=== PATIENT | female | born 1940 | race Caucasian/White ===

== ENCOUNTER → 2017-09-30 13:42 | Outpatient (CLI) | payer OTHER, SELFPAY ==
--- NOTE | 2017-10-01 15:06 | DI.NM.S_ITS ---
DATE OF SERVICE: 09/30/2017 PROCEDURE: Exercise perfusion study. INDICATIONS: Shortness of breath and underlying atrial fibrillation. RADIOPHARMACEUTICAL: 26.4 mCi of technetium-99m Myoview IV was injected at stress, and 23.9 mCi of technetium-99m Myoview IV was injected at rest. CARDIAC STRESS: Patient underwent exercise perfusion study under the supervision of an attending staff. She walked on Torrey protocol for 3 minutes 53 seconds and achieved maximum heart rate of about 165, which was 113% of predicted heart rate. There was a normal blood pressure response. The patient developed shortness of breath during exercise. Baseline rhythm was atrial fibrillation with controlled ventricular rate. However, during exercise, there was enhanced chronotropic response. The patient also had a 4-beat run of wide QRS tachycardia, likely an aberrant conduction. RAW DATA: There was breast shadow seen. GATED STUDY: Resting LV ejection fraction 84% and stress 88%. I don't see any obvious wall motion abnormalities. No transient ischemic dilatation. TID ratio is 0.86, which is within normal limits. Resting end-diastolic volume 83 mL. Lung/heart ratio is 0.33, which is within normal limits. MYOCARDIAL PERFUSION SCAN: Stress supine and resting supine images revealed small-sized mildly decreased perfusion of distal anterior wall and anteroseptum which resolved during prone images, suggestive of breast tissue attenuation artifact. CONCLUSION: I would call this study a normal myocardial perfusion study with underlying atrial fibrillation with enhanced chronotropic response during exercise with shortness of breath. As far as perfusion scan is concerned, this is a low risk myocardial perfusion scan; however, her exertional shortness of breath likely due to increased heart rate during exertion with underlying atrial fibrillation and possibility of diastolic dysfunction. Clinical correlation is recommended. Debora Pemberton - SUPERINTENDENT OF GENERATION/amena/ doc#: [id number]/job#: [id number] dd: 10/01/2017 12:46:00 dt: 10/01/2017 14:42:00 DICTATING MD/COPIES TO: Edilson Hernandez MD COPIES MNE: MERVIN
== END ==
PROVIDERS: Family Provider Internal Medicine; PCP Internal Medicine; Visit Provider Internal Medicine
DX: R06.02 Shortness of breath (principal); I48.91 Unspecified atrial fibrillation
CPT/HCPCS: 78452; 93016; 93017; 93018; A9502

== ENCOUNTER → 2017-10-01 08:03 | Outpatient (CLI) | payer OTHER, SELFPAY ==
--- NOTE | 2017-10-01 | DI.ECHO.S_ITS ---
[facility] +---------+ : : [address] : [place] : : : : [id number] : : : : Phone: [phone]---------+ Echocardiogram Report + + :Name: ANGY SANDHU Study Date: 10/01/2017 Height: 61 in : :[facility] Weight: 200 lb : : Gender: Female BSA: 1.9 m2 : :: 1940 Age: 76 yrs BP: 156/100 mmHg: :Reason For Study: Atrial fibrillation : :Ordering Physician: Dr. Pang : :Alexi Performed By: Miya Lozada : + + Interpretation Summary Left ventricular wall thickness is mildly increased. Left ventricular systolic function is normal without focal wall motion abnormalities. The ejection fraction is estimated to be 60-65%. The right ventricle is normal in size and function. The right ventricular systolic pressure is estimated at 26 mmHg assuming a right atrial pressure of 3 mm Hg. The left atrium is moderately dilated. The right atrium is mildly dilated. There is mild to moderate mitral regurgitation. There is mild to moderate tricuspid regurgitation. There is no other significant valvular heart disease. The ascending aorta is mildly enlarged. Procedure: A two-dimensional transthoracic echocardiogram with color flow and Doppler was performed. The study quality was technically adequate. There is no prior echocardiogram noted for this patient. The patient was in atrial fibrillation with heart rates between 45-61 bpm during the exam. Left Ventricle: Left ventricular wall thickness is mildly increased. The left ventricle is normal in size. There is no ventricular septal defect visualized. Left ventricular systolic function is normal without focal wall motion abnormalities. The ejection fraction is estimated to be 60-65%. Diastolic function could not be accurately assessed due to atrial fibrillation. Right Ventricle: The right ventricle is normal in size and function. Atria: The left atrium is moderately dilated. The right atrium is mildly dilated. There is no Doppler evidence for an interatrial shunt. Mitral Valve: The mitral valve is normal in structure but abnormal in function. There is mild to moderate mitral regurgitation. Aortic Valve: The aortic valve is trileaflet. The aortic valve opens well. No aortic regurgitation is present. Tricuspid Valve: The tricuspid valve leaflets are thin and pliable. There is mild to moderate tricuspid regurgitation. The right ventricular systolic pressure is estimated at 26 mmHg assuming a right atrial pressure of 3 mm Hg. Pulmonic Valve: The pulmonic valve is normal in structure and function. There is a trace or physiologic amount of pulmonic regurgitation. There is no other significant valvular heart disease. Great Vessels: The aortic root is normal size. The ascending aorta is mildly enlarged. The aortic arch could not be visualized. The IVC is of normal diameter and collapses greater than 50% with a sniff. This suggests a low right atrial pressure of 3 mm Hg. Pericardium/ Pleura There is no pericardial effusion. MMode/2D Measurements & Calculations LVIDd: 4.9 cm LVOT diam: 1.8 cm LVIDs: 3.3 cm Ao root diam: 3.4 cm FS: 33.8 % Aortic Jxn: 3.2 cm EPSS: 0.42 cm asc Aorta Diam: 3.9 cm IVSd: 1.1 cm LVPWd: 0.88 cm LV jaffe. diameter/BSA (cm/m^2): 2.6 LV sys. diameter/BSA (cm/m^2): 1.7 LA A2 area: 23.4 cm2 RA long axis: 6.1 cm LA A4 area: 26.3 cm2 RA area: 22.6 cm2 LA length (vol): 6.1 cm RA vol: 70.9 ml LA vol: 85.9 ml RA : 37.5 ml/m2 LA vol index: 45.5 ml/m2 IVC diam: 1.9 cm RVD1 (basal): 3.1 cm RVD2 (mid): 2.3 cm TAPSE: 2.6 cm Doppler Measurements & Calculations Ao V2 max: 162.5 cm/sec LVOT Max Asaf: 67.4 cm/sec Ao V2 mean: 104.5 cm/sec LV V1 max P.8 mmHg Ao max P.6 mmHg LV V1 VTI: 15.6 cm Ao mean P.2 mmHg DINA(I,D): 1.1 cm2 Ao V2 VTI: 37.0 cm DINA(V,D): 1.1 cm2 sev ratio: 0.42 DINA indexed to BSA (cm^2/m^2): 0.60 MV E max asaf: 90.2 cm/sec TR max asaf: 238.2 cm/sec Med Peak E' Asaf: 8.7 cm/sec TR max P.8 mmHg E/E' med: 10.4 PA V2 max: 62.5 cm/sec Lat Peak E' Asaf: 6.6 cm/sec PA V2 mean: 45.2 cm/sec E/E' lat: 13.7 PA mean P.93 mmHg E/e' average: 12.0 PA Accel Time: 0.14 sec MV P1/2t: 49.3 msec MR ERO: 0.05 cm2 P1/2t max asaf: 117.4 cm/sec MR flow rate: 24.9 cm3/sec MVA(2t): 4.5 cm2 MR PISA radius: 0.30 cm Reading Physician:BLANCHE
== END ==
PROVIDERS: Family Provider Internal Medicine; PCP Internal Medicine; Visit Provider Internal Medicine
DX: I48.91 Unspecified atrial fibrillation (principal)
CPT/HCPCS: 93306

== ENCOUNTER → 2018-02-04 11:18 | Outpatient (CLI) | payer OTHER, SELFPAY ==
[2018-02-04 12:38] LABS: Add Manual Diff / Slide Review NO; Basophils Percent Auto 0.6 % (0-2); Eosinophils Percent Auto 2.3 % (2-4); Hematocrit 41.2 % (36-46); Hemoglobin 13.9 g/dL (12.0-16.0); Lymphocytes Percent Auto 37.7 % (25-40); Mean Corpuscular HGB Conc 33.8 % (30-36); Mean Corpuscular Hemoglobin 29.6 PG (26-34); Mean Corpuscular Volume 87.5 fL (80-100); Monocytes Percent Auto 9.5 % (3-14); Neutrophils Absolute Auto 4400 /uL (3000-5900); Neutrophils Percent Auto 49.9 % (50-75); Platelet Count 246 X10^3/uL (150-400); Red Blood Cell Count 4.71 X10^6/uL (4.0-5.2); Red Cell Distribution Width 15.1 % (11.6-14.8); White Blood Cell Count 8.8 X10^3/uL (4.5-11.0)
[2018-02-04 12:45] LABS: Carbon Dioxide 33 mmol/L (22-32); Chloride 99 mmol/L (98-107); HEMOLYSIS < 15 (0-50); Potassium 4.6 mmol/L (3.4-5.1); Sodium 141 mmol/L (137-145)
== END ==
PROVIDERS: PCP Internal Medicine; Visit Provider Physician Assistant Medical
DX: M25.562 Pain in left knee (principal); E87.8 Other disorders of electrolyte and fluid balance, not elsewhere classified
CPT/HCPCS: 36415; 80051; 85025

== ENCOUNTER 2018-02-23 11:04 | Inpatient (IN) | payer OTHER, SELFPAY ==
[2018-02-09 09:52] VITALS: BMI 37.6
[2018-02-23] VITALS (18 sets, daily range): BP systolic 90–148; BP diastolic 46–91; PULSE 50–68; RESP 14–18; TEMP 35.7–36.8; O2SAT 92–96; BMI 36.6
--- NOTE | 2018-02-23 09:55 | DI.RAD.S_ITS ---
PROCEDURE: XR KNEE LT 1TO2V INDICATIONS: SURGERY TECHNIQUE: 2 view(s) of the knee acquired. COMPARISON: None. FINDINGS: Bones: Patient is status post knee joint arthroplasty. Hardware components are in expected positions. Visualized bony structures are intact. Soft tissues: Overlying postoperative changes are noted. IMPRESSION: Expected postsurgical alignment after left total knee arthroplasty. Dictated by: Barry Pryor M.D. on 02/23/2018 at 14:56 Approved by: Barry Pryor M.D. on 02/23/2018 at 14:56
[2018-02-23] MEDS: PREGABALIN 75 MG CAPSULE PO (11:45)
[2018-02-23] MEDS: MELOXICAM 7.5 MG TABLET 15 MG PO (11:45)
[2018-02-23] MEDS: ACETAMINOPHEN 325 MG TABLET 975 MG PO ×2 (11:46→21:25)
[2018-02-23] MEDS: LACTATED RINGERS 1,000 ML 42 ML IV ×2 (12:00→16:42)
--- NOTE | 2018-02-23 12:04 | PM.PREOP ---
Pre-operative Note Interval Note Pre-op Check: Yes History & Physical Reviewed by Physician and Yes Exam Performed Changes: No
--- NOTE | 2018-02-23 12:07 | P.OP_ITS ---
Operative Date/Time/Diagnoses Date of procedure: 02/23/18 Time of procedure: 14:31 Pre-op diagnosis: Left knee osteoarthritis Post-op diagnosis: same Procedure & Clinicians Procedure: Left total knee arthroplasty Same procedure as scheduled: Yes Indications: The patient presents today for total knee arthroplasty after failure of conservative treatment. The nature of the procedure including the risks and benefits, alternatives, postoperative course and expected outcome were discussed and all questions answered. Consent was obtained. Operative site confirmed and marked. Surgeon: Phan Walker An Employee Sponsor Or Advocate And: Alexey Guaman Anesthesia Type: General, Spinal and Local Operative Notes Findings: Osteoarthritis. Closure Type: primary Specimen(s): none sent Implants & Drains: [employer] BCS: 3 femoral component, 2 tibial component, 9 mm BCS polyethylene tray and 29 x 9 mm round patella Applied: implant(s) Estimated Blood Loss (mL): 50 Blood products transfused: none Tourniquet time (min): 20 Procedure in detail: The patient was taken to the operative suite and placed under spinal and general anesthesia. The patient was given prophylactic antibiotics prior to surgery. The patient was also given tranexamic acid, 1 g, just prior to surgery for postoperative hemostasis. The lateral knee was prepped and the joint injected with 20 mL of 1% Lidocaine with epinephrine. The knee was then prepped and draped in usual sterile fashion. The leg was exsanguinated with an Esmarch dressing and the tourniquet raised to 250 torr. A 15 cm anterior incision was made. Next a medial trivector arthrotomy was made. The extensor mechanism was marked to ensure accurate repair. Initial exposing dissection was carried out medially and laterally. The knee was then extended and the patellar thickness was measured and a cut made removing approximately 9 mm of bone with a goal of restoring normal patellar thickness. The patella was then sized and drilled. Some excess lateral bone was excised and the patellofemoral ligament released. The tourniquet was then released. The knee was then flexed and the [employer] femoral guide was placed. The anterior pins were placed and the distal rotation holes drilled. The distal cutting guide was placed and the templated distal femoral cut was made. The templating cutting block was then placed and the anterior, posterior and chamfer cuts made. The [employer] tibial guide was placed and the alignment checked along the axis of the proximal tibial with a ezio. The proximal tibial cut was then made with an oscillating saw. All meniscus and bony debris was then removed. Flexion extension gaps were checked. No specific balancing was required other than routine exposure and removal of osteophytes. The soft tissues were then injected with a combination of 20 mL of half percent Marcaine with epinephrine and 20 mL of Exparel. The trial components were then placed. The knee went into full extension and flexion beyond 120?. There was excellent medial- lateral balance throughout motion. Patellar tracking was excellent. The trial components were removed and size is confirmed for the final implants. The knee was then exsanguinated with an Esmarch dressing and the tourniquet reapplied for cementing. The knee was cleansed with Pulsavac irrigation and dried. The final components were cemented in with high viscosity vacuum mixed bone cement with antibiotics. The knee was held in extension and the patellar clamp until the cement had adequately cured. The knee was then irrigated with dilute Betadine solution. The extensor mechanism was closed with 5 interrupted #1 Vicryl sutures in 90 degrees of flexion. The joint was then injected with a combination of 1 g of tranexamic acid and 20 mL of quarter percent Marcaine with epinephrine. The subcutaneous tissue was closed with 2-0 Vicryl. The skin was closed with manpreet and surgical adhesive. An Aquacel dressing and Wyatt wrap were then applied. Complications: none Condition: stable Disposition: PACU Plan for aftercare: [facility] protocol.
[2018-02-23] MEDS: LIDOCAINE 1% W/EPI INJ 20 ML INJ (13:05)
[2018-02-23] MEDS: CLINDAMYCIN 900 MG/50 ML PIGGYBACK 50 MG IV (13:09)
[2018-02-23] MEDS: TRANEXAMIC ACID 1,000 MG VIAL 2000 MG INJ (13:10)
--- NOTE | 2018-02-23 13:24 | SUR.OPER ---
Supine on padded OR bed. Pillow under head, arms secured on padded armboards <90 degree abduction. Safety belt across torso. Non-operative leg secured with tape over blanket over lower leg. Operative leg secured in DeMayo/Salbador positioner. Foam padded brace at thigh of operative leg.
[2018-02-23] MEDS: POVIDONE-IODINE 15 ML, SODIUM CHLORIDE 0.9% 250 ML TOP (13:35)
[2018-02-23] MEDS: BUPIVACAINE 0.5% W/ EPI (PF) 10 ML, TRANEXAMIC ACID 1,000 MG, SODIUM CHLORIDE 0.9% 20 ML INJ (13:37)
[2018-02-23] MEDS: BUPIVACAINE 0.5% W/ EPI (PF) 20 ML, BUPIVACAINE LIPOSOME 266 MG, SODIUM CHLORIDE 0.9% 8... INJ (13:37)
--- NOTE | 2018-02-23 16:25 | PC.NURSE ---
Addendum entered by Gris Beckman R.N. 02/23/18 21:40: pt nauseas and vomiting with clear liquid fluid intake. medicated per JUL. pt still voiced no urge void at 2044 with bladder scan only showing about 100ml. notified Dr. Reveles, received orders to increase IV fluids, PRN zofran, to give the pt a few more hours to try to void again, and PRN straight cath order if bladder scan >300ml. pt attempted to increase oral fluid intake and had another episode of emesis. pt currently resting. donita light within reach. Original Note: Addendum entered by Gris Beckman R.N. 02/23/18 18:37: at approximately 1800, pt able to slightly wiggle toes bilaterally and with some sensation to BLE, states sltill some tingling. pt with no sensation to want to void yet and declining to have griggs placed at this time. pt agreeable to increase fluid intake and try to void by 1999. Original Note: POST-OP Received pt at approximately 1535 via bed accompanied by IT ADMINISTRATIVE ASSISTANT x2. drowsy but arouses to verbal stimuli. pt withdrawn and not wanting to answer questions or follow commands initially, pt's daughter (who is an RN) reinforced to pt the need for an accurate assessment by staff which pt was then more cooperative with. numbness to bilateral legs, pt unable to wiggle toes, denies any pain at this time. sPo2 occasionally decreases to mid 80's while pt asleep, CPAP maintained. pt also c/o slight nausea received pt without griggs placed and without any post-op transfer orders. notified CLARENCE Dietrich who stated that she would place orders since Dr. Walker is no longer in the hospital (still currently awaiting orders). pt currently resting comfortably. family oriented to room and call light.
[2018-02-23] MEDS: ONDANSETRON 4 MG/2 ML INJ IV ×2 (16:43→21:35)
[2018-02-23] MEDS: METOCLOPRAMIDE 10 MG/2 ML INJ IV (18:51)
[2018-02-23] MEDS: ASPIRIN EC 81 MG TABLET PO (21:25)
--- NOTE | 2018-02-24 02:53 | PC.NURSE ---
NOC Patient denying pain and nausea. Has feeling in LE, bilaterally. Able to raise both legs, L side not against gravity. LR running at 100ml/hr, encouraging fluid intake as pt reports no need/urge to void. Bladder scan 0235 resulted in 132ml. Order was to straigh cath or place Purdy if >300ml; so BARRER AND TACKER and I are encouraging fluids as often as we can and have educated the pt on the importance of voiding. Patient responded with, I don't feel the need to go. Patient has not gotten out of bed for us, but is able to reposition IND in bed. CPAP is on with 1L o2, O2 sat is 95%.
[2018-02-24] MEDS: LACTATED RINGERS 1,000 ML 100 ML IV (05:23)
[2018-02-24 06:13] VITALS: BP 99/60; PULSE 58; RESP 16; TEMP 36.9; O2SAT 94
[2018-02-24 08:00] VITALS: BP 108/71; PULSE 62; RESP 16; TEMP 36.2; O2SAT 93
--- NOTE | 2018-02-24 08:21 | P.DS_ITS ---
History of Present Illness Date Patient Seen: 02/24/18 Chief complaint: 97829 Narrative: Patient seen bedside s/p L. TKA POD #1. Patient is doing well, has been up to the bathroom but has not worked with formal physical therapy. Her pain is well controlled. She denies CP, SOB, and calf pain. She would like to go home today. Discharge Providers Date of admission: 02/23/18 11:04 Primary care physician: Bird Truong MD Consults: 02/23/18 09:55 Consult to Anesthesiology Routine Comment: Consulting Provider: Anesthesiologist Reason for consultation: Regional block for post operative pain control Discharge provider: Diana Belle PA-C Discharge Date: 02/24/18 Summary Discharge Diagnosis: Left knee osteoarthritis Hospital Course: Patient was admitted to the hospital status post left total knee arthroplasty with Dr. Walker on 02/23/2018. Patient tolerated the procedure well and major complications. Patient was transferred to the acute care floor where she was seen by Physical therapy who recommended patient be discharged home. Patient was stable and ready for discharge on 02/24/2018. Status at Discharge Cognitive/behavioral status at discharge: alert and oriented x3 Functional status at discharge: independent ambulation Overall status at discharge: patient is progressing back to baseline Time Spent with Patient Less than 30 minutes Exam Vital Signs (past 8 hours): - 02/24/18 06:13 Temperature 98.5 F Pulse Rate 58 L Respiratory Rate 16 Blood Pressure 99/60 Pulse Oximetry 94 Fraction of Inspired Oxygen 24 Oxygen Delivery Method Room Air Oxygen Flow Rate 2 Narrative Exam Narrative: WDWN NAD A&Ox3. Dressing on left knee is CDI, no signs of drainage, erythema, or edema. She is NVI in this extremity. Calf is soft and compressible. Discharge Plan Discharge Plan Patient Disposition: Home Discharge Med Rec/Prescriptions Prescriptions: New acetaminophen 325 mg Tablet 975 mg PO TID Qty: 0 RF: 0 hydroxyzine pamoate 25 mg Capsule 25 mg PO Q4HR PRN (Reason: Nausea) Qty: 50 RF: 1 oxycodone 5 mg tablet 5 mg PO Q4-6H PRN (Reason: pain) Qty: 40 RF: 0 Continue multivitamin tablet 1 tab PO DAILY RF: 0 hydrochlorothiazide 25 mg tablet 25 mg PO DAILY RF: 0 atenolol 50 mg tablet 50 mg PO DAILY RF: 0 apixaban [Eliquis] 5 mg Tablet 5 mg PO BID RF: 0 Discontinued acetaminophen [Acetaminophen Extra Strength] 500 mg Tablet 500 mg PO BEDTIME RF: 0 Follow up/Referrals: Phan Walker MD [Physician] - (Follow up on 03/02/18 at 2:30pm with Diana Belle PA-C at the [facility] Bird Truong MD [Primary Care Provider] - Provider Discharge Instructions Diet: Diet as Tolerated Activity: Weightbearing as tolerated, use walker until cleared by physical therapy Cold/Heat Therapy: Apply ice for 20 minutes at a time at least hourly while awake to operative site. Skin/Wound/Dressing Care Report to your healthcare provider any signs of infection, such as:: chills, fever, night sweats, increased pain and unusual drainage Dressing: May remove satinder wrap today. Keep Aquacel dressing on until second post -op appointment. Visit Report/Discharge Packet Instructions: DI for Knee Replacement, Oxycodone, Hydroxyzine Visit Report Forms: Stroke Signs & Symptoms Discharge Data Primary Care Provider: Bird Truong Attending Provider: Phan Walker Admit Date/Time: 02/23/18 11:04 Quality VTE Deep Vein Thrombosis/Pulmonary Embolism Present on Admission: No
[2018-02-24] MEDS: ACETAMINOPHEN 325 MG TABLET 975 MG PO (08:31)
[2018-02-24] MEDS: ASPIRIN EC 81 MG TABLET PO (08:31)
[2018-02-24] MEDS: MELOXICAM 7.5 MG TABLET 15 MG PO (08:31)
[2018-02-24 09:25] VITALS: PULSE 62; RESP 16; O2SAT 96
--- NOTE | 2018-02-24 14:47 | CM.IDA ---
Discharge Planning/Care Management CM Discharge Assessment Start: 02/24/18 14:43 Freq: Status: Discharge Protocol: Document 02/24/18 14:43 ANGLE (Rec: 02/24/18 14:46 ANGLE [id number]) Discharge Planning Assessment Assigned Lasting Machine Operator Bed MARIA LUZ Palomino DPOA/Assigned Designee Name Phillip: [phone] Diamante: [phone] Antonia: Advance Directives? No Advance Directives on File No History Provided By Patient Family Member Medical Record Prior Living Arrangements House Household Members spouse Type of transporation used prior to Drives own vehicle admit Independent with ADL's Yes Is patient alert and oriented? Yes Barriers to Discharge No Comment Home today w/spouse, pt eager to return home. PT has cleared for safe [place] home. Discharge Plan Home Transportation Arrangement Family Referrals Initiated None needed Whiteboard Updated in Patient Room with Yes name and ext. # of Lasting Machine Operator Bed
--- NOTE | 2018-02-24 15:25 | PT.IIE ---
Current Diagnoses Unilateral primary osteoarthritis, left knee (02/23/18) Surgery Performed Operation Date: 02/23/18 12:15 Actual Procedures p Total Knee Arthroplasty(Left) - Phan Walker MD Surgical History (Last Updated 02/09/18 @ 10:22 by Sulema Meneezs, RN) History of bilateral tubal ligation (Acute) History of section (Acute) Hx of bilateral cataract extraction (Acute) Hx of tonsillectomy (Acute) Medical History (Last Updated 02/09/18 @ 10:22 by Sulema Menezes RN) Atrial fibrillation (Acute) Bilateral knee pain (Acute) Bronchitis (Acute) Chronic right shoulder pain (Acute) Diverticulosis (Acute) Easy bruisability (Acute) Edema (Acute) Fatty liver (Acute) Gallstone (Acute) HTN (hypertension) (Acute) Hip bursitis, left (Acute) Neck pain (Acute) Numbness (Acute) Osteoarthritis (Acute) Plantar fasciitis of right foot (Acute) Pneumonia (Acute) Sleep apnea with use of continuous positive airway pressure (CPAP) (Acute) Physical Therapy Inpatient Evaluation/Re-Eval M1 PT/OT-IP Prior Functional Status Start: 02/24/18 12:49 Freq: NEEDED Status: Active Protocol: Document 02/24/18 10:30 AMB (Rec: 02/24/18 13:00 AMB [email or web address]) Medical Review Prior Functional Status Medical History Reviewed Yes Mobility and Gait Painful knees, but community ambulator, has a cane and walker at home Social History Household Members spouse Living Arrangements House Number of Stairs To Enter/Railing? 6, 1 railing Home Environment Walk in Shower Home Equipment Front Wheel Walker Straight Cane Employment Status Retired Additional Social History Comment Pt's will be home with her, he was present for PT session M2 PT-IP Current Condition Start: 02/24/18 12:49 Freq: NEEDED Status: Active Protocol: Document 02/24/18 10:30 AMB (Rec: 02/24/18 13:00 AMB [email or web address]) Physical Therapy Current Condition Current Condition Evaluation Date 02/24/18 Treatment Diagnosis L TKA Onset Date 02/23/18 Weight Bearing Status Weight Bearing Status Weight Bear as Tolerated M3 PT-IP Subjective Start: 02/24/18 12:49 Freq: NEEDED Status: Active Protocol: Document 02/24/18 10:30 AMB (Rec: 02/24/18 13:00 AMB [email or web address]) Subjective Physical Therapy Visit Type Type Initial Evaluation Visit Start Time 10:30 Visit Stop Time 11:10 Total Visit Minutes 40 Physical Therapy Visit Comments Patient Comments Pt says no dizziness today, she does have some pain over medial quad, otherwise feeling good and hoping to go home. Therapy Pain Assessment Pain When Pain Assessed At Rest Pain Present Pain Present Pain Reported M4 PT-IP Mobility and Gait Start: 02/24/18 12:49 Freq: NEEDED Status: Active Protocol: Document 02/24/18 10:30 AMB (Rec: 02/24/18 15:25 AMB [email or web address]) PT-Bed Mobility Assessment Rolling Level of Assist Independent Supine to Sit Supine to Sit Standby Assistance Sit to Supine Sit to Supine Standby Assistance Scooting Scooting to Edge of Bed Independent Scooting Up and Down in Bed Independent PT-Transfer Assessment Sit to and From Stand Sit to and from Stand Standby Assistance Equipment Transfer Assistive Device Front Wheeled Walker Transfers Transfer Destination Bed Transfer Technique Stand Step Pivot Comments Mobility Comments Pt needed repeat cues to keep her walker with her and not walk without it yet. Gait Assessment Gait Gait Assistance Required: Standby Assistance Distance (Feet) 250 Able to Maintain Weight Bearing Status Yes During Gait Assistive Devices Assistive Device Front Wheeled Walker Gait Deviations General Gait Pattern Antalgic Factors Limiting Gait Function Factors Limiting Gait Function Decreased Strength Pain Comments Gait Comments By the end of the hallway pt was able to show good step through gait pattern, tends to decrease weightbearing on surgical leg. Stair Climbing Assessment Evaluation Level of Assist On Stairs Contact Guard Assistance Devices Stair Climbing Assistive Devices Right Railing Technique/Endurance Stair Climbing Direction Ascend and Descend Stair Climbing Technique Step to Step Number of Steps Climbed 3 Query Text: Stair Climbing Set # Repetitions (reps) 3 Comments Stair Climbing Comments Instructed pt and in step to stair ascend/descend, to manage FWW and provide SBA, and he was able to demonstrate this. M5 PT-IP Objective Assessments Start: 02/24/18 12:49 Freq: NEEDED Status: Active Protocol: Document 02/24/18 10:30 AMB (Rec: 02/24/18 15:25 AMB [email or web address]) Sensation Assessment Comments Sensation Comments pt able to report light touch to LEs accurately M6 PT-IP Treatment Start: 02/24/18 12:49 Freq: NEEDED Status: Active Protocol: Document 02/24/18 10:30 AMB (Rec: 02/24/18 15:25 AMB [email or web address]) Physical Therapy Treatment Exercises Exercises Ankle Pumps Quad Sets Heel Slides Education Education Provided Weight Bearing Status Post-Op Packet M7 PT-IP Assessment and Plan Start: 02/24/18 12:49 Freq: NEEDED Status: Active Protocol: Document 02/24/18 10:30 AMB (Rec: 02/24/18 15:25 AMB [email or web address]) PT Summary Assessment and Plan Potential Rehabilitation Potential Good Status of Condition at Evaluation Stable Summary Impairments Pain ROM Strength Balance Gait Activity Tolerance Assessment Summary Pt is day 1 s/p L TKA. She and her were able to appropriately ascend and descend stairs, and understand instructions for car transfer and shower safety. Pt was independent/sba for all transfers except for stairs with 1 rail (CGA) and was able to provide this support appropriately. Instructed in post op exercises, icing, and appropriate post op activity level until outpatient PT is scheduled in 1 week. Pt safe to d/c from a PT perspective at this time. Goals Bed Mobility Goal Independent Transfer Goal Independent Gait Goal Independent Days to Meet Goals 1 Frequency of Treatment Frequency Of Treatment Discharge Treatment Plan Physical Therapy Treatment Plan Bed Mobility Training Transfer Training Gait Training Therapeutic Exercise Post Op Education Recommendations To Nursing Amount of Assist Needed Standby Assistance Discharge Recommendations PT Discharge Recommendations Home with Assistance
== END 2018-02-24 12:10 | disposition home or self-care (01) | DRG 470 ==
PROVIDERS: Admitting Provider Orthopaedic Surgery; Family Provider Internal Medicine; PCP Internal Medicine; Visit Provider Orthopaedic Surgery
PROC: 0SRD0JZ Replacement of Left Knee Joint with Synthetic Substitute, Open Approach (ICD-10-PCS; CPT 27447; principal; 2018-02-23 12:15)
DX: M17.12 Unilateral primary osteoarthritis, left knee (principal); I10 Essential (primary) hypertension; Z87.891 Personal history of nicotine dependence; Z79.01 Long term (current) use of anticoagulants; I48.91 Unspecified atrial fibrillation
CPT/HCPCS: 73560; 94760; 94762; 97116; 97162; C1776; C9290; J1100; J2250; J2274; J2405; J2704; J2765

== ENCOUNTER → 2018-06-13 14:27 | Outpatient (CLI) | payer OTHER, SELFPAY ==
[2018-02-23 16:47] VITALS: BMI 36.6
--- NOTE | 2018-06-13 | DI.MG.S_ITS ---
BILATERAL DIGITAL SCREENING MAMMOGRAM 3D/2D WITH CAD: 06/13/2018 CLINICAL: Routine screening. Comparison is made to exams dated: 09/24/2016 mammogram, 08/28/2015 mammogram, and 04/09/2014 mammogram - [facility]. There are scattered fibroglandular elements in both breasts. Current study was also evaluated with a Computer Aided Detection (CAD) system. No significant masses, calcifications, or other findings are seen in either breast. There has been no significant interval change. IMPRESSION: NEGATIVE There is no mammographic evidence of malignancy. A 1 year screening mammogram is recommended. This exam was interpreted at Station ID: [id number]. NOTE: For mammograms, a report in lay terms will be sent to the patient. Approximately 15% of breast malignancies will not be visualized mammographically. In the management of a palpable breast mass, a negative mammogram must not discourage biopsy of a clinically suspicious lesion. Electronically Signed By: Alexx [email or web address]:06/13/2018 15:00:19 letter sent: Normal Exam ACR BI-RADS Category 1: Negative [id number]
== END ==
PROVIDERS: Family Provider Internal Medicine; PCP Internal Medicine; Visit Provider Internal Medicine
DX: Z12.31 Encounter for screening mammogram for malignant neoplasm of breast (principal); Z78.0 Asymptomatic menopausal state
CPT/HCPCS: 77063; 77067; 77080

== ENCOUNTER 2018-07-15 09:45 | Outpatient (RCR) | payer OTHER, SELFPAY ==
[2018-02-23 16:47] VITALS: BMI 36.6
--- NOTE | 2018-03-03 12:42 | PT.OIE ---
Current Diagnoses Unilateral primary osteoarthritis, left knee (03/03/18) Past Medical History (Last Updated 02/09/18 @ 10:22 by Sulema Menezes RN) Atrial fibrillation (Acute) Bilateral knee pain (Acute) Bronchitis (Acute) Chronic right shoulder pain (Acute) Diverticulosis (Acute) Easy bruisability (Acute) Edema (Acute) Fatty liver (Acute) Gallstone (Acute) HTN (hypertension) (Acute) Hip bursitis, left (Acute) Neck pain (Acute) Numbness (Acute) Osteoarthritis (Acute) Plantar fasciitis of right foot (Acute) Pneumonia (Acute) Sleep apnea with use of continuous positive airway pressure (CPAP) (Acute) Past Surgical History (Last Updated 02/09/18 @ 10:22 by Sulema Menezes RN) History of bilateral tubal ligation (Acute) History of section (Acute) Hx of bilateral cataract extraction (Acute) Hx of tonsillectomy (Acute) Provider Visit Care Team Role Provider Type Bird Truong MD Family Provider Physician Primary Care Provider Specialty: Internal Medicine Address: [address] [place] [address], [id number] Email: Phan Walker MD Attending Provider Physician Specialty: Orthopedics Address: [address] [place] [address], [id number] Email: [email or web address] Physical Therapy Initial Evaluation PT-OP-A Visit Information Start: 03/03/18 08:45 Freq: Status: Active Protocol: Document 03/03/18 08:45 AMB (Rec: 03/06/18 12:15 AMB [email or web address]) Out-Patient Physical Therapy Visit Information Visit Information Visit Type Initial Evaluation Visit Start Time 08:45 Visit Stop Time 09:30 Total Visit Minutes 45 Visit Number 1 Evaluation Information Evaluation Date 03/03/18 PT-OP-B Current Condition Start: 03/03/18 08:45 Freq: Status: Active Protocol: Document 03/03/18 08:45 AMB (Rec: 03/06/18 12:15 AMB [email or web address]) Current Condition History of Current Condition Onset Date 02/23/18 Current Complaints s/p L TKA History of Current Condition The patient had a left total knee arthroplasty on 02/23/18. She has been home with her (they have stairs to enter the house with a railing ). She states her pain has been under good control but she has been afraid to bend her knee much. Treatment Goals Patient/Caregiver Goals Stand and walk normally Prior Functional Status Baseline Function- ADL's Independent Baseline Function- Mobility Independent Baseline Function- Gait Pt was not using an assistive device prior to surgery Current Functional Impairments (Reported) Functional Limitations- ADL's Pt ambulating with FWW, has not showered yet, has not returned to driving Personal Factors Other Personal Factors That May Effect hypertension, R knee pain Therapy/Recovery PT-OP-C Subjective Start: 03/03/18 08:45 Freq: Status: Active Protocol: Document 03/03/18 08:45 AMB (Rec: 03/06/18 12:15 AMB [email or web address]) OP-PT Pain Assessment Pain Assessment Grid Paper Pain Assessment Grid Completed Yes Location Left Knee Intensity 3 Scale Used Numeric (1 - 10) PT-OP-D Balance Start: 03/03/18 08:45 Freq: Status: Active Protocol: Document 03/03/18 08:45 AMB (Rec: 03/06/18 12:41 AMB [email or web address]) Balance Tests Other Other Balance Tests Performed Unable to perform single leg stance on the L. Unable to perform tandem stance. NBOS EO increases ankle sway. PT-OP-G Mobility & Gait Start: 03/03/18 08:45 Freq: Status: Active Protocol: Document 03/03/18 08:45 AMB (Rec: 03/06/18 12:40 AMB [email or web address]) OP Gait Assessment Comments Gait Comments Pt ambulates with a very stiff knee. Continued to have satinder wrap around knee. Encouraged her in knee flexion during swing and heel strike, but this was difficult. Stair Climbing Evaluation Evaluation Level of Assist On Stairs Standby Assistance Devices Stair Climbing Assistive Devices Left Railing Right Railing Technique/Endurance Stair Climbing Direction Ascend and Descend Stair Climbing Technique Step to Step Number of Steps Climbed 4 PT-OP-J Posture/Palpation/Skin Start: 03/03/18 08:45 Freq: Status: Active Protocol: Document 03/03/18 08:45 AMB (Rec: 03/06/18 12:40 AMB [email or web address]) Skin Assessment Circumference Measurement 2 Location left knee Measurement (Centimeters) 54 Comments mid patella 1 Location right knee Measurement (Centimeters) 51 Comments mid patella Incisional Assessment Incision Appearance/Comments Covered in bandage, no redness around bandage, Bruising present. PT-OP-K Range of Motion Start: 03/03/18 08:45 Freq: Status: Active Protocol: Document 03/03/18 08:45 AMB (Rec: 03/06/18 12:40 AMB [email or web address]) Knee Goniometric Range of Motion Knee Measured in Degrees Right Patient Position Supine Flexion Passive (degrees) 115 Extension Active (degrees) 5 Left Patient Position Supine Flexion Passive (degrees) 60 Extension Active (degrees) 5 PT-OP-M Strength Start: 03/03/18 08:45 Freq: Status: Active Protocol: Document 03/03/18 08:45 AMB (Rec: 03/06/18 12:40 AMB [email or web address]) Hip Strength Hip Manual Muscle Testing Right Flexion (L2) 4 Good Extension (S1) 4 Good Abduction 4 Good Left Flexion (L2) 3- Fair- Extension (S1) 3- Fair- Abduction 3+ Fair+ Knee Strength Knee Manual Muscle Testing Right Flexion (S2) 4+ Good+ Extension (L3) 4+ Good+ Left Flexion (S2) 4 Good Extension (L3) 4- Good- Ankle/Foot Strength Ankle and Foot Manual Muscle Testing Right Dorsiflexion (L4) 4+ Good+ Plantarflexion (S1) 4+ Good+ Left Dorsiflexion (L4) 4 Good Plantarflexion (S1) 4 Good PT-OP-Q Treatments Start: 03/03/18 08:45 Freq: Status: Active Protocol: Document 03/03/18 08:45 AMB (Rec: 03/06/18 12:40 AMB [email or web address]) Cardio Equipment Recumbent Elliptical ([employer]) Duration (Minutes) 5 Resistance 0 Seat Position 4 Therapeutic Exercises Supine Exercises 1 Supine Exercise Name heel slides Reps/Minutes 10 Sitting Exercises 1 Sitting Exercise Name knee flexion Reps/Minutes 5x10 PT-OP-T Assessment and Plan Start: 03/03/18 08:45 Freq: Status: Active Protocol: Document 03/03/18 08:45 AMB (Rec: 03/06/18 12:40 AMB [email or web address]) Physical Therapy Assessment Rehab Potential Rehabilitation Potential Good Evaluation Complexity Number of Personal Factors/Comorbidities 1-2 Number of Body Systems Impaired 4 or More Clinical Presentation at Evaluation Evolving Impairments Impairments Balance Gait Pain ROM Strength Transfers Goals Three Impairment gait Short Term Goal (STG) The patient will ambulate for 300' without an assistive device. STG Duration 4 weeks Radio Operator Goal (LTG) The patient will ambulate in the community over uneven terrain (grass, gravel, hills) for 30 minutes with 2/10 knee pain or less without an assistive device. LTG Duration 8 weeks Two Impairment strength Short Term Goal (STG) The patient will show improved LE strength by performing a partial squat without UE support. STG Duration 4 weeks Radio Operator Goal (LTG) The patient will show improved strength so she can control the descent of her body while going down stairs with step over step pattern with 1 rail. LTG Duration 8 weeks One Impairment ROM Short Term Goal (STG) AROM will improve to -5 to 100 . STG Duration 4 weeks Radio Operator Goal (LTG) PROM will improve to 0-120 so she is able to go down stairs without compensation. LTG Duration 8 weeks Assessment Summary Assessment The patient attends PT 1 week s/p L TKA. She attends PT with significant stiffness into flexion, but good extension. She will need extensive education in regards to appropriate exercise and walking, as she was afraid to bend her knee, despite instruction in that during her inpatient stay. She also has swelling and weakness as would be expected. Her R knee pain may also be a limiting factor. Physical Therapy Plan Frequency and Duration Frequency of Treatment 2x/Week Duration of Treatment 8 weeks Plan of Care Start Date 03/03/18 Plan of Care End Date 04/28/18 Therapeutic Interventions Therapeutic Interventions Balance Training Gait Training Home Exercise Program Joint Mobilizations Manual Therapy Neuromuscular Re-education Self-Care/Home Management Therapeutic Activities Therapeutic Exercises Modalities Cold Pack/Ice Massage Electric Stimulation Next Visit Focus/Plan Next Note Type Treatment Note Next Visit Plan Progress gait, knee flexion, strengthening.
--- NOTE | 2018-03-03 12:43 | PT.OPPOC ---
Current Diagnoses Unilateral primary osteoarthritis, left knee (03/03/18) Provider Visit Care Team Role Provider Type Bird Truong MD Family Provider Physician Primary Care Provider Specialty: Internal Medicine Address: [address] [place] [address], [id number] Email: Phan Walker MD Attending Provider Physician Specialty: Orthopedics Address: [address] [place] [address], [id number] Email: [email or web address] Plan Of Care PT-OP-T Assessment and Plan Start: 03/03/18 08:45 Freq: Status: Active Protocol: Document 03/03/18 08:45 AMB (Rec: 03/06/18 12:40 AMB [email or web address]) Physical Therapy Assessment Rehab Potential Rehabilitation Potential Good Evaluation Complexity Number of Personal Factors/Comorbidities 1-2 Number of Body Systems Impaired 4 or More Clinical Presentation at Evaluation Evolving Impairments Impairments Balance Gait Pain ROM Strength Transfers Goals Three Impairment gait Short Term Goal (STG) The patient will ambulate for 300' without an assistive device. STG Duration 4 weeks Chcf Goal (LTG) The patient will ambulate in the community over uneven terrain (grass, gravel, hills) for 30 minutes with 2/10 knee pain or less without an assistive device. LTG Duration 8 weeks Two Impairment strength Short Term Goal (STG) The patient will show improved LE strength by performing a partial squat without UE support. STG Duration 4 weeks Floors Buffer Goal (LTG) The patient will show improved strength so she can control the descent of her body while going down stairs with step over step pattern with 1 rail. LTG Duration 8 weeks One Impairment ROM Short Term Goal (STG) AROM will improve to -5 to 100 . STG Duration 4 weeks Chcf Goal (LTG) PROM will improve to 0-120 so she is able to go down stairs without compensation. LTG Duration 8 weeks Assessment Summary Assessment The patient attends PT 1 week s/p L TKA. She attends PT with significant stiffness into flexion, but good extension. She will need extensive education in regards to appropriate exercise and walking, as she was afraid to bend her knee, despite instruction in that during her inpatient stay. She also has swelling and weakness as would be expected. Her R knee pain may also be a limiting factor. Physical Therapy Plan Frequency and Duration Frequency of Treatment 2x/Week Duration of Treatment 8 weeks Plan of Care Start Date 03/03/18 Plan of Care End Date 04/28/18 Therapeutic Interventions Therapeutic Interventions Balance Training Gait Training Home Exercise Program Joint Mobilizations Manual Therapy Neuromuscular Re-education Self-Care/Home Management Therapeutic Activities Therapeutic Exercises Modalities Cold Pack/Ice Massage Electric Stimulation Next Visit Focus/Plan Next Note Type Treatment Note Next Visit Plan Progress gait, knee flexion, strengthening. Plan of Care Dates Plan of Care Start Date 03/03/18 Plan of Care End Date 04/28/18 Please Sign and Return: I have reviewed this Plan of Care and certify that the skilled therapy services above are required to meet the patient?s needs. Physician Signature Date Printed Name and Credentials Clinical Instructor Signature Printed Name and Credentials
--- NOTE | 2018-03-09 16:21 | PT.OTN ---
Current Diagnoses Unilateral primary osteoarthritis, left knee (03/08/18) Physical Therapy Treatment Note PT-OP-A Visit Information Start: 03/03/18 08:45 Freq: Status: Active Protocol: Document 03/08/18 13:00 AMB (Rec: 03/09/18 16:21 AMB [email or web address]) Out-Patient Physical Therapy Visit Information Visit Information Visit Type Treatment Note Visit Start Time 13:00 Visit Stop Time 13:45 Total Visit Minutes 45 Visit Number 2 Evaluation Information Evaluation Date 03/03/18 PT-OP-B Current Condition Start: 03/03/18 08:45 Freq: Status: Active Protocol: Document 03/03/18 08:45 AMB (Rec: 03/06/18 12:15 AMB [email or web address]) Current Condition History of Current Condition Onset Date 02/23/18 Current Complaints s/p L TKA History of Current Condition The patient had a left total knee arthroplasty on 02/23/18. She has been home with her (they have stairs to enter the house with a railing ). She states her pain has been under good control but she has been afraid to bend her knee much. Treatment Goals Patient/Caregiver Goals Stand and walk normally Prior Functional Status Baseline Function- ADL's Independent Baseline Function- Mobility Independent Baseline Function- Gait Pt was not using an assistive device prior to surgery Current Functional Impairments (Reported) Functional Limitations- ADL's Pt ambulating with FWW, has not showered yet, has not returned to driving Personal Factors Other Personal Factors That May Effect hypertension, R knee pain Therapy/Recovery PT-OP-C Subjective Start: 03/03/18 08:45 Freq: Status: Active Protocol: Document 03/08/18 13:00 AMB (Rec: 03/09/18 16:21 AMB [email or web address]) OP-PT Subjective Patient Comments Patient Comments Pt states she has been trying to do her exercises, her pain has been pretty well under control. PT-OP-D Balance Start: 03/03/18 08:45 Freq: Status: Active Protocol: Document 03/03/18 08:45 AMB (Rec: 03/06/18 12:41 AMB [email or web address]) Balance Tests Other Other Balance Tests Performed Unable to perform single leg stance on the L. Unable to perform tandem stance. NBOS EO increases ankle sway. PT-OP-G Mobility & Gait Start: 03/03/18 08:45 Freq: Status: Active Protocol: Document 03/03/18 08:45 AMB (Rec: 03/06/18 12:40 AMB [email or web address]) OP Gait Assessment Comments Gait Comments Pt ambulates with a very stiff knee. Continued to have satinder wrap around knee. Encouraged her in knee flexion during swing and heel strike, but this was difficult. Stair Climbing Evaluation Evaluation Level of Assist On Stairs Standby Assistance Devices Stair Climbing Assistive Devices Left Railing Right Railing Technique/Endurance Stair Climbing Direction Ascend and Descend Stair Climbing Technique Step to Step Number of Steps Climbed 4 PT-OP-J Posture/Palpation/Skin Start: 03/03/18 08:45 Freq: Status: Active Protocol: Document 03/03/18 08:45 AMB (Rec: 03/06/18 12:40 AMB [email or web address]) Skin Assessment Circumference Measurement 2 Location left knee Measurement (Centimeters) 54 Comments mid patella 1 Location right knee Measurement (Centimeters) 51 Comments mid patella Incisional Assessment Incision Appearance/Comments Covered in bandage, no redness around bandage, Bruising present. PT-OP-K Range of Motion Start: 03/03/18 08:45 Freq: Status: Active Protocol: Document 03/03/18 08:45 AMB (Rec: 03/06/18 12:40 AMB [email or web address]) Knee Goniometric Range of Motion Knee Measured in Degrees Right Patient Position Supine Flexion Passive (degrees) 115 Extension Active (degrees) 5 Left Patient Position Supine Flexion Passive (degrees) 60 Extension Active (degrees) 5 PT-OP-M Strength Start: 03/03/18 08:45 Freq: Status: Active Protocol: Document 03/03/18 08:45 AMB (Rec: 03/06/18 12:40 AMB [email or web address]) Hip Strength Hip Manual Muscle Testing Right Flexion (L2) 4 Good Extension (S1) 4 Good Abduction 4 Good Left Flexion (L2) 3- Fair- Extension (S1) 3- Fair- Abduction 3+ Fair+ Knee Strength Knee Manual Muscle Testing Right Flexion (S2) 4+ Good+ Extension (L3) 4+ Good+ Left Flexion (S2) 4 Good Extension (L3) 4- Good- Ankle/Foot Strength Ankle and Foot Manual Muscle Testing Right Dorsiflexion (L4) 4+ Good+ Plantarflexion (S1) 4+ Good+ Left Dorsiflexion (L4) 4 Good Plantarflexion (S1) 4 Good PT-OP-Q Treatments Start: 03/03/18 08:45 Freq: Status: Active Protocol: Document 03/08/18 13:00 AMB (Rec: 03/09/18 16:21 AMB [email or web address]) Cardio Equipment Recumbent Elliptical ([employer]) Duration (Minutes) 5 Resistance 1 Seat Position 4 Gym Equipment Shuttle Recovery Unilateral Squats Resistance 25 Shuttle Recovery Platform Stable Reps/Time 3x10 Bilateral Squats Resistance 50 Shuttle Recovery Platform Stable Reps/Time 2x10 Therapeutic Exercises Supine Exercises 2 Supine Exercise Name supine march Reps/Minutes 10 1 Supine Exercise Name heel slides Reps/Minutes 10 Sitting Exercises 1 Sitting Exercise Name knee flexion Reps/Minutes 5x10 Manual Therapy Treatment Manual Techniques 2 Type lymphatic drainage 1 Type PROM flexion and extension PT-OP-R Modalities Start: 03/03/18 08:45 Freq: Status: Active Protocol: Document 03/08/18 13:00 AMB (Rec: 03/09/18 16:21 AMB [email or web address]) Hot Pack/Cold Pack Treatment Cold Pack Location Knee Patient Position Hooklying Treatment Duration (minutes) 10 PT-OP-T Assessment and Plan Start: 03/03/18 08:45 Freq: Status: Active Protocol: Document 03/08/18 13:00 AMB (Rec: 03/09/18 16:21 AMB [email or web address]) Physical Therapy Assessment Assessment Summary Assessment Pt's AROM improved to 80 degrees of flexion. Pt continues to need vc to flex knee during gait. Physical Therapy Plan Next Visit Focus/Plan Next Note Type Treatment Note Next Visit Plan Progress gait, knee flexion, strengthening.
--- NOTE | 2018-03-11 16:45 | PT.OTN ---
Current Diagnoses Unilateral primary osteoarthritis, left knee (03/11/18) Physical Therapy Treatment Note PT-OP-A Visit Information Start: 03/03/18 08:45 Freq: Status: Active Protocol: Document 03/11/18 09:00 AMB (Rec: 03/11/18 09:20 AMB [id number]) Out-Patient Physical Therapy Visit Information Visit Information Visit Type Treatment Note Visit Start Time 09:05 Visit Stop Time 09:55 Total Visit Minutes 45 Visit Number 3 Evaluation Information Evaluation Date 03/03/18 PT-OP-B Current Condition Start: 03/03/18 08:45 Freq: Status: Active Protocol: Document 03/03/18 08:45 AMB (Rec: 03/06/18 12:15 AMB [email or web address]) Current Condition History of Current Condition Onset Date 02/23/18 Current Complaints s/p L TKA History of Current Condition The patient had a left total knee arthroplasty on 02/23/18. She has been home with her (they have stairs to enter the house with a railing ). She states her pain has been under good control but she has been afraid to bend her knee much. Treatment Goals Patient/Caregiver Goals Stand and walk normally Prior Functional Status Baseline Function- ADL's Independent Baseline Function- Mobility Independent Baseline Function- Gait Pt was not using an assistive device prior to surgery Current Functional Impairments (Reported) Functional Limitations- ADL's Pt ambulating with FWW, has not showered yet, has not returned to driving Personal Factors Other Personal Factors That May Effect hypertension, R knee pain Therapy/Recovery PT-OP-C Subjective Start: 03/03/18 08:45 Freq: Status: Active Protocol: Document 03/11/18 09:00 AMB (Rec: 03/11/18 09:20 AMB [id number]) OP-PT Subjective Patient Comments Patient Comments Pt got her manpreet removed and is concerned because her steri strips are leaking a bit . PT-OP-D Balance Start: 03/03/18 08:45 Freq: Status: Active Protocol: Document 03/03/18 08:45 AMB (Rec: 03/06/18 12:41 AMB [email or web address]) Balance Tests Other Other Balance Tests Performed Unable to perform single leg stance on the L. Unable to perform tandem stance. NBOS EO increases ankle sway. PT-OP-G Mobility & Gait Start: 03/03/18 08:45 Freq: Status: Active Protocol: Document 03/03/18 08:45 AMB (Rec: 03/06/18 12:40 AMB [email or web address]) OP Gait Assessment Comments Gait Comments Pt ambulates with a very stiff knee. Continued to have satinder wrap around knee. Encouraged her in knee flexion during swing and heel strike, but this was difficult. Stair Climbing Evaluation Evaluation Level of Assist On Stairs Standby Assistance Devices Stair Climbing Assistive Devices Left Railing Right Railing Technique/Endurance Stair Climbing Direction Ascend and Descend Stair Climbing Technique Step to Step Number of Steps Climbed 4 PT-OP-J Posture/Palpation/Skin Start: 03/03/18 08:45 Freq: Status: Active Protocol: Document 03/03/18 08:45 AMB (Rec: 03/06/18 12:40 AMB [email or web address]) Skin Assessment Circumference Measurement 2 Location left knee Measurement (Centimeters) 54 Comments mid patella 1 Location right knee Measurement (Centimeters) 51 Comments mid patella Incisional Assessment Incision Appearance/Comments Covered in bandage, no redness around bandage, Bruising present. PT-OP-K Range of Motion Start: 03/03/18 08:45 Freq: Status: Active Protocol: Document 03/03/18 08:45 AMB (Rec: 03/06/18 12:40 AMB [email or web address]) Knee Goniometric Range of Motion Knee Measured in Degrees Right Patient Position Supine Flexion Passive (degrees) 115 Extension Active (degrees) 5 Left Patient Position Supine Flexion Passive (degrees) 60 Extension Active (degrees) 5 PT-OP-M Strength Start: 03/03/18 08:45 Freq: Status: Active Protocol: Document 03/03/18 08:45 AMB (Rec: 03/06/18 12:40 AMB [email or web address]) Hip Strength Hip Manual Muscle Testing Right Flexion (L2) 4 Good Extension (S1) 4 Good Abduction 4 Good Left Flexion (L2) 3- Fair- Extension (S1) 3- Fair- Abduction 3+ Fair+ Knee Strength Knee Manual Muscle Testing Right Flexion (S2) 4+ Good+ Extension (L3) 4+ Good+ Left Flexion (S2) 4 Good Extension (L3) 4- Good- Ankle/Foot Strength Ankle and Foot Manual Muscle Testing Right Dorsiflexion (L4) 4+ Good+ Plantarflexion (S1) 4+ Good+ Left Dorsiflexion (L4) 4 Good Plantarflexion (S1) 4 Good PT-OP-Q Treatments Start: 03/03/18 08:45 Freq: Status: Active Protocol: Document 03/11/18 09:00 AMB (Rec: 03/11/18 16:45 AMB [email or web address]) Cardio Equipment Recumbent Stepper (Sci-Fit) Duration (Minutes) 6 Resistance 3 Gym Equipment Shuttle Recovery Unilateral Squats Resistance 50 Shuttle Recovery Platform Stable Reps/Time 3x10 Bilateral Squats Resistance 75 Shuttle Recovery Platform Stable Reps/Time 2x10 Therapeutic Exercises Supine Exercises 2 Supine Exercise Name supine march Reps/Minutes 10 1 Supine Exercise Name heel slides Reps/Minutes 10 Gait Training Gait Activity 1 Description SPC over smooth surfaces Comments began in paralel bars, then progressed to open gym with vc to flex knee during swing. PT-OP-R Modalities Start: 03/03/18 08:45 Freq: Status: Active Protocol: Document 03/11/18 09:00 AMB (Rec: 03/11/18 16:45 AMB [email or web address]) Hot Pack/Cold Pack Treatment Cold Pack Location Knee Patient Position Hooklying Treatment Duration (minutes) 10 PT-OP-T Assessment and Plan Start: 03/03/18 08:45 Freq: Status: Active Protocol: Document 03/11/18 09:00 AMB (Rec: 03/11/18 16:45 AMB [email or web address]) Physical Therapy Assessment Assessment Summary Assessment Pt very nervous about bleeding at steri strips. Will need to push patient next week, but anxious today so did not force range. Physical Therapy Plan Next Visit Focus/Plan Next Note Type Treatment Note Next Visit Plan Progress gait, knee flexion, strengthening.
--- NOTE | 2018-03-15 16:23 | PT.OTN ---
Current Diagnoses Unilateral primary osteoarthritis, left knee (03/15/18) Physical Therapy Treatment Note PT-OP-A Visit Information Start: 03/03/18 08:45 Freq: Status: Active Protocol: Document 03/15/18 13:00 AMB (Rec: 03/15/18 13:17 AMB [id number]) Out-Patient Physical Therapy Visit Information Visit Information Visit Type Treatment Note Visit Start Time 09:05 Visit Stop Time 09:55 Total Visit Minutes 45 Visit Number 4 PT-OP-B Current Condition Start: 03/03/18 08:45 Freq: Status: Active Protocol: Document 03/03/18 08:45 AMB (Rec: 03/06/18 12:15 AMB [email or web address]) Current Condition History of Current Condition Onset Date 02/23/18 Current Complaints s/p L TKA History of Current Condition The patient had a left total knee arthroplasty on 02/23/18. She has been home with her (they have stairs to enter the house with a railing ). She states her pain has been under good control but she has been afraid to bend her knee much. Treatment Goals Patient/Caregiver Goals Stand and walk normally Prior Functional Status Baseline Function- ADL's Independent Baseline Function- Mobility Independent Baseline Function- Gait Pt was not using an assistive device prior to surgery Current Functional Impairments (Reported) Functional Limitations- ADL's Pt ambulating with FWW, has not showered yet, has not returned to driving Personal Factors Other Personal Factors That May Effect hypertension, R knee pain Therapy/Recovery PT-OP-C Subjective Start: 03/03/18 08:45 Freq: Status: Active Protocol: Document 03/15/18 13:00 AMB (Rec: 03/15/18 13:17 AMB [id number]) OP-PT Subjective Patient Comments Patient Comments Pt's knee has been stiff but she has been using her cane more PT-OP-D Balance Start: 03/03/18 08:45 Freq: Status: Active Protocol: Document 03/03/18 08:45 AMB (Rec: 03/06/18 12:41 AMB [email or web address]) Balance Tests Other Other Balance Tests Performed Unable to perform single leg stance on the L. Unable to perform tandem stance. NBOS EO increases ankle sway. PT-OP-G Mobility & Gait Start: 03/03/18 08:45 Freq: Status: Active Protocol: Document 03/03/18 08:45 AMB (Rec: 03/06/18 12:40 AMB [email or web address]) OP Gait Assessment Comments Gait Comments Pt ambulates with a very stiff knee. Continued to have satinder wrap around knee. Encouraged her in knee flexion during swing and heel strike, but this was difficult. Stair Climbing Evaluation Evaluation Level of Assist On Stairs Standby Assistance Devices Stair Climbing Assistive Devices Left Railing Right Railing Technique/Endurance Stair Climbing Direction Ascend and Descend Stair Climbing Technique Step to Step Number of Steps Climbed 4 PT-OP-J Posture/Palpation/Skin Start: 03/03/18 08:45 Freq: Status: Active Protocol: Document 03/03/18 08:45 AMB (Rec: 03/06/18 12:40 AMB [email or web address]) Skin Assessment Circumference Measurement 2 Location left knee Measurement (Centimeters) 54 Comments mid patella 1 Location right knee Measurement (Centimeters) 51 Comments mid patella Incisional Assessment Incision Appearance/Comments Covered in bandage, no redness around bandage, Bruising present. PT-OP-K Range of Motion Start: 03/03/18 08:45 Freq: Status: Active Protocol: Document 03/03/18 08:45 AMB (Rec: 03/06/18 12:40 AMB [email or web address]) Knee Goniometric Range of Motion Knee Measured in Degrees Right Patient Position Supine Flexion Passive (degrees) 115 Extension Active (degrees) 5 Left Patient Position Supine Flexion Passive (degrees) 60 Extension Active (degrees) 5 PT-OP-M Strength Start: 03/03/18 08:45 Freq: Status: Active Protocol: Document 03/03/18 08:45 AMB (Rec: 03/06/18 12:40 AMB [email or web address]) Hip Strength Hip Manual Muscle Testing Right Flexion (L2) 4 Good Extension (S1) 4 Good Abduction 4 Good Left Flexion (L2) 3- Fair- Extension (S1) 3- Fair- Abduction 3+ Fair+ Knee Strength Knee Manual Muscle Testing Right Flexion (S2) 4+ Good+ Extension (L3) 4+ Good+ Left Flexion (S2) 4 Good Extension (L3) 4- Good- Ankle/Foot Strength Ankle and Foot Manual Muscle Testing Right Dorsiflexion (L4) 4+ Good+ Plantarflexion (S1) 4+ Good+ Left Dorsiflexion (L4) 4 Good Plantarflexion (S1) 4 Good PT-OP-Q Treatments Start: 03/03/18 08:45 Freq: Status: Active Protocol: Document 03/15/18 13:00 AMB (Rec: 03/15/18 16:21 AMB [email or web address]) Cardio Equipment Recumbent Elliptical (Biodex) Duration (Minutes) 6 Resistance 3 Seat Position 4 Therapeutic Exercises Supine Exercises 2 Supine Exercise Name supine march Reps/Minutes 10 1 Supine Exercise Name heel slides Reps/Minutes 10 Sitting Exercises 1 Sitting Exercise Name knee flexion Reps/Minutes 5x10 Manual Therapy Treatment Taping 1 Body Location calf/ knee Treatment Focus edema control Type of Tape Kinesio Tape Manual Techniques 2 Type lymphatic drainage 1 Type PROM flexion and extension PT-OP-R Modalities Start: 03/03/18 08:45 Freq: Status: Active Protocol: Document 03/15/18 13:00 AMB (Rec: 03/15/18 16:23 AMB [email or web address]) Hot Pack/Cold Pack Treatment Cold Pack Location knee Patient Position Hooklying Treatment Duration (minutes) 10 PT-OP-T Assessment and Plan Start: 03/03/18 08:45 Freq: Status: Active Protocol: Document 03/15/18 13:00 AMB (Rec: 03/15/18 16:21 AMB [email or web address]) Physical Therapy Assessment Assessment Summary Assessment Pt getting to 90 degrees flexion with overpressure, but it is painful. Physical Therapy Plan Next Visit Focus/Plan Next Note Type Treatment Note Next Visit Plan Progress gait, knee flexion, strengthening.
--- NOTE | 2018-03-18 16:35 | PT.OTN ---
Current Diagnoses Unilateral primary osteoarthritis, left knee (03/18/18) Physical Therapy Treatment Note PT-OP-A Visit Information Start: 03/03/18 08:45 Freq: Status: Active Protocol: Document 03/18/18 13:00 AMB (Rec: 03/18/18 13:11 AMB [id number]) Out-Patient Physical Therapy Visit Information Visit Information Visit Type Treatment Note Visit Start Time 13:00 Visit Stop Time 13:45 Total Visit Minutes 45 Visit Number 4 PT-OP-B Current Condition Start: 03/03/18 08:45 Freq: Status: Active Protocol: Document 03/03/18 08:45 AMB (Rec: 03/06/18 12:15 AMB [email or web address]) Current Condition History of Current Condition Onset Date 02/23/18 Current Complaints s/p L TKA History of Current Condition The patient had a left total knee arthroplasty on 02/23/18. She has been home with her (they have stairs to enter the house with a railing ). She states her pain has been under good control but she has been afraid to bend her knee much. Treatment Goals Patient/Caregiver Goals Stand and walk normally Prior Functional Status Baseline Function- ADL's Independent Baseline Function- Mobility Independent Baseline Function- Gait Pt was not using an assistive device prior to surgery Current Functional Impairments (Reported) Functional Limitations- ADL's Pt ambulating with FWW, has not showered yet, has not returned to driving Personal Factors Other Personal Factors That May Effect hypertension, R knee pain Therapy/Recovery PT-OP-C Subjective Start: 03/03/18 08:45 Freq: Status: Active Protocol: Document 03/18/18 13:00 AMB (Rec: 03/18/18 13:11 AMB [id number]) OP-PT Subjective Patient Comments Patient Comments Tape worked, but since it went only to the knee, swelling went into the knee. Back has been feeling better. PT-OP-D Balance Start: 03/03/18 08:45 Freq: Status: Active Protocol: Document 03/03/18 08:45 AMB (Rec: 03/06/18 12:41 AMB [email or web address]) Balance Tests Other Other Balance Tests Performed Unable to perform single leg stance on the L. Unable to perform tandem stance. NBOS EO increases ankle sway. PT-OP-G Mobility & Gait Start: 03/03/18 08:45 Freq: Status: Active Protocol: Document 03/03/18 08:45 AMB (Rec: 03/06/18 12:40 AMB [email or web address]) OP Gait Assessment Comments Gait Comments Pt ambulates with a very stiff knee. Continued to have satinder wrap around knee. Encouraged her in knee flexion during swing and heel strike, but this was difficult. Stair Climbing Evaluation Evaluation Level of Assist On Stairs Standby Assistance Devices Stair Climbing Assistive Devices Left Railing Right Railing Technique/Endurance Stair Climbing Direction Ascend and Descend Stair Climbing Technique Step to Step Number of Steps Climbed 4 PT-OP-J Posture/Palpation/Skin Start: 03/03/18 08:45 Freq: Status: Active Protocol: Document 03/03/18 08:45 AMB (Rec: 03/06/18 12:40 AMB [email or web address]) Skin Assessment Circumference Measurement 2 Location left knee Measurement (Centimeters) 54 Comments mid patella 1 Location right knee Measurement (Centimeters) 51 Comments mid patella Incisional Assessment Incision Appearance/Comments Covered in bandage, no redness around bandage, Bruising present. PT-OP-K Range of Motion Start: 03/03/18 08:45 Freq: Status: Active Protocol: Document 03/03/18 08:45 AMB (Rec: 03/06/18 12:40 AMB [email or web address]) Knee Goniometric Range of Motion Knee Measured in Degrees Right Patient Position Supine Flexion Passive (degrees) 115 Extension Active (degrees) 5 Left Patient Position Supine Flexion Passive (degrees) 60 Extension Active (degrees) 5 PT-OP-M Strength Start: 03/03/18 08:45 Freq: Status: Active Protocol: Document 03/03/18 08:45 AMB (Rec: 03/06/18 12:40 AMB [email or web address]) Hip Strength Hip Manual Muscle Testing Right Flexion (L2) 4 Good Extension (S1) 4 Good Abduction 4 Good Left Flexion (L2) 3- Fair- Extension (S1) 3- Fair- Abduction 3+ Fair+ Knee Strength Knee Manual Muscle Testing Right Flexion (S2) 4+ Good+ Extension (L3) 4+ Good+ Left Flexion (S2) 4 Good Extension (L3) 4- Good- Ankle/Foot Strength Ankle and Foot Manual Muscle Testing Right Dorsiflexion (L4) 4+ Good+ Plantarflexion (S1) 4+ Good+ Left Dorsiflexion (L4) 4 Good Plantarflexion (S1) 4 Good PT-OP-Q Treatments Start: 03/03/18 08:45 Freq: Status: Active Protocol: Document 03/18/18 13:00 AMB (Rec: 03/18/18 16:34 AMB [email or web address]) Cardio Equipment Recumbent Bicycle Duration (Minutes) 6 Resistance 0 Seat Position 4 Other pt unable to make full revolution Gym Equipment Shuttle Recovery Unilateral Squats Resistance 75 Shuttle Recovery Platform Stable Reps/Time 3x10 Bilateral Squats Resistance 87 Shuttle Recovery Platform Stable Reps/Time 2x10 Therapeutic Exercises Supine Exercises 3 Supine Exercise Name quad stretch Comments 30x2 1 Supine Exercise Name heel slides Reps/Minutes 10 Manual Therapy Treatment Taping 1 Body Location calf/ knee Treatment Focus edema control Type of Tape Kinesio Tape Manual Techniques 2 Type lymphatic drainage 1 Type PROM flexion and extension PT-OP-R Modalities Start: 03/03/18 08:45 Freq: Status: Active Protocol: Document 03/18/18 13:00 AMB (Rec: 03/18/18 16:34 AMB [email or web address]) Hot Pack/Cold Pack Treatment Cold Pack Location knee Patient Position Hooklying Treatment Duration (minutes) 10 PT-OP-T Assessment and Plan Start: 03/03/18 08:45 Freq: Status: Active Protocol: Document 03/18/18 13:00 AMB (Rec: 03/18/18 16:34 AMB [email or web address]) Physical Therapy Assessment Assessment Summary Assessment Pt continues to be stiff into flexion and swelling makes this more difficult. Encouraged pt to progress ROM at home and continue to progress SPC gait. Physical Therapy Plan Next Visit Focus/Plan Next Note Type Treatment Note Next Visit Plan Progress gait, knee flexion, strengthening.
--- NOTE | 2018-03-22 15:15 | PT.OTN ---
Current Diagnoses Unilateral primary osteoarthritis, left knee (03/22/18) Physical Therapy Treatment Note PT-OP-A Visit Information Start: 03/03/18 08:45 Freq: Status: Active Protocol: Document 03/22/18 13:00 AMB (Rec: 03/22/18 13:09 AMB [id number]) Out-Patient Physical Therapy Visit Information Visit Information Visit Type Treatment Note Visit Start Time 13:00 Visit Stop Time 13:45 Total Visit Minutes 45 Visit Number 6 PT-OP-B Current Condition Start: 03/03/18 08:45 Freq: Status: Active Protocol: Document 03/03/18 08:45 AMB (Rec: 03/06/18 12:15 AMB [email or web address]) Current Condition History of Current Condition Onset Date 02/23/18 Current Complaints s/p L TKA History of Current Condition The patient had a left total knee arthroplasty on 02/23/18. She has been home with her (they have stairs to enter the house with a railing ). She states her pain has been under good control but she has been afraid to bend her knee much. Treatment Goals Patient/Caregiver Goals Stand and walk normally Prior Functional Status Baseline Function- ADL's Independent Baseline Function- Mobility Independent Baseline Function- Gait Pt was not using an assistive device prior to surgery Current Functional Impairments (Reported) Functional Limitations- ADL's Pt ambulating with FWW, has not showered yet, has not returned to driving Personal Factors Other Personal Factors That May Effect hypertension, R knee pain Therapy/Recovery PT-OP-C Subjective Start: 03/03/18 08:45 Freq: Status: Active Protocol: Document 03/22/18 13:00 AMB (Rec: 03/22/18 13:09 AMB [id number]) OP-PT Subjective Patient Comments Patient Comments Pt feels like tape is working well. PT-OP-D Balance Start: 03/03/18 08:45 Freq: Status: Active Protocol: Document 03/03/18 08:45 AMB (Rec: 03/06/18 12:41 AMB [email or web address]) Balance Tests Other Other Balance Tests Performed Unable to perform single leg stance on the L. Unable to perform tandem stance. NBOS EO increases ankle sway. PT-OP-G Mobility & Gait Start: 03/03/18 08:45 Freq: Status: Active Protocol: Document 03/03/18 08:45 AMB (Rec: 03/06/18 12:40 AMB [email or web address]) OP Gait Assessment Comments Gait Comments Pt ambulates with a very stiff knee. Continued to have satinder wrap around knee. Encouraged her in knee flexion during swing and heel strike, but this was difficult. Stair Climbing Evaluation Evaluation Level of Assist On Stairs Standby Assistance Devices Stair Climbing Assistive Devices Left Railing Right Railing Technique/Endurance Stair Climbing Direction Ascend and Descend Stair Climbing Technique Step to Step Number of Steps Climbed 4 PT-OP-J Posture/Palpation/Skin Start: 03/03/18 08:45 Freq: Status: Active Protocol: Document 03/03/18 08:45 AMB (Rec: 03/06/18 12:40 AMB [email or web address]) Skin Assessment Circumference Measurement 2 Location left knee Measurement (Centimeters) 54 Comments mid patella 1 Location right knee Measurement (Centimeters) 51 Comments mid patella Incisional Assessment Incision Appearance/Comments Covered in bandage, no redness around bandage, Bruising present. PT-OP-K Range of Motion Start: 03/03/18 08:45 Freq: Status: Active Protocol: Document 03/03/18 08:45 AMB (Rec: 03/06/18 12:40 AMB [email or web address]) Knee Goniometric Range of Motion Knee Measured in Degrees Right Patient Position Supine Flexion Passive (degrees) 115 Extension Active (degrees) 5 Left Patient Position Supine Flexion Passive (degrees) 60 Extension Active (degrees) 5 PT-OP-M Strength Start: 03/03/18 08:45 Freq: Status: Active Protocol: Document 03/03/18 08:45 AMB (Rec: 03/06/18 12:40 AMB [email or web address]) Hip Strength Hip Manual Muscle Testing Right Flexion (L2) 4 Good Extension (S1) 4 Good Abduction 4 Good Left Flexion (L2) 3- Fair- Extension (S1) 3- Fair- Abduction 3+ Fair+ Knee Strength Knee Manual Muscle Testing Right Flexion (S2) 4+ Good+ Extension (L3) 4+ Good+ Left Flexion (S2) 4 Good Extension (L3) 4- Good- Ankle/Foot Strength Ankle and Foot Manual Muscle Testing Right Dorsiflexion (L4) 4+ Good+ Plantarflexion (S1) 4+ Good+ Left Dorsiflexion (L4) 4 Good Plantarflexion (S1) 4 Good PT-OP-Q Treatments Start: 03/03/18 08:45 Freq: Status: Active Protocol: Document 03/22/18 13:00 AMB (Rec: 03/22/18 13:13 AMB [id number]) Cardio Equipment Recumbent Bicycle Duration (Minutes) 10 Other almost full revolution, but didn't turn on bike Gym Equipment Shuttle Recovery Unilateral Squats Resistance 75 Shuttle Recovery Platform Stable Reps/Time 3x10 Bilateral Squats Resistance 87 Shuttle Recovery Platform Stable Reps/Time 2x10 Therapeutic Exercises Supine Exercises 3 Supine Exercise Name quad stretch Comments 30x2 Manual Therapy Treatment Manual Techniques 2 Type lymphatic drainage 1 Type PROM flexion and extension PT-OP-R Modalities Start: 03/03/18 08:45 Freq: Status: Active Protocol: Document 03/22/18 13:00 AMB (Rec: 03/22/18 13:21 AMB [id number]) Hot Pack/Cold Pack Treatment Cold Pack Location knee Patient Position Hooklying Treatment Duration (minutes) 10 PT-OP-T Assessment and Plan Start: 03/03/18 08:45 Freq: Status: Active Protocol: Document 03/22/18 13:00 AMB (Rec: 03/22/18 13:21 AMB [id number]) Physical Therapy Assessment Assessment Summary Assessment Pt did better with biking today. Physical Therapy Plan Next Visit Focus/Plan Next Note Type Treatment Note Next Visit Plan Progress gait, knee flexion, strengthening.
--- NOTE | 2018-03-25 15:51 | PT.OTN ---
Current Diagnoses Unilateral primary osteoarthritis, left knee (03/25/18) Physical Therapy Treatment Note PT-OP-A Visit Information Start: 03/03/18 08:45 Freq: Status: Active Protocol: Document 03/25/18 13:00 AMB (Rec: 03/25/18 13:22 AMB [id number]) Out-Patient Physical Therapy Visit Information Visit Information Visit Type Treatment Note Visit Start Time 13:00 Visit Stop Time 13:45 Total Visit Minutes 45 Visit Number 7 PT-OP-B Current Condition Start: 03/03/18 08:45 Freq: Status: Active Protocol: Document 03/03/18 08:45 AMB (Rec: 03/06/18 12:15 AMB [email or web address]) Current Condition History of Current Condition Onset Date 02/23/18 Current Complaints s/p L TKA History of Current Condition The patient had a left total knee arthroplasty on 02/23/18. She has been home with her (they have stairs to enter the house with a railing ). She states her pain has been under good control but she has been afraid to bend her knee much. Treatment Goals Patient/Caregiver Goals Stand and walk normally Prior Functional Status Baseline Function- ADL's Independent Baseline Function- Mobility Independent Baseline Function- Gait Pt was not using an assistive device prior to surgery Current Functional Impairments (Reported) Functional Limitations- ADL's Pt ambulating with FWW, has not showered yet, has not returned to driving Personal Factors Other Personal Factors That May Effect hypertension, R knee pain Therapy/Recovery PT-OP-C Subjective Start: 03/03/18 08:45 Freq: Status: Active Protocol: Document 03/25/18 13:00 AMB (Rec: 03/25/18 13:22 AMB [id number]) OP-PT Subjective Patient Comments Patient Comments Pt is very hopeful to get her leg around on the bike today. PT-OP-D Balance Start: 03/03/18 08:45 Freq: Status: Active Protocol: Document 03/03/18 08:45 AMB (Rec: 03/06/18 12:41 AMB [email or web address]) Balance Tests Other Other Balance Tests Performed Unable to perform single leg stance on the L. Unable to perform tandem stance. NBOS EO increases ankle sway. PT-OP-G Mobility & Gait Start: 03/03/18 08:45 Freq: Status: Active Protocol: Document 03/03/18 08:45 AMB (Rec: 03/06/18 12:40 AMB [email or web address]) OP Gait Assessment Comments Gait Comments Pt ambulates with a very stiff knee. Continued to have satinder wrap around knee. Encouraged her in knee flexion during swing and heel strike, but this was difficult. Stair Climbing Evaluation Evaluation Level of Assist On Stairs Standby Assistance Devices Stair Climbing Assistive Devices Left Railing Right Railing Technique/Endurance Stair Climbing Direction Ascend and Descend Stair Climbing Technique Step to Step Number of Steps Climbed 4 PT-OP-J Posture/Palpation/Skin Start: 03/03/18 08:45 Freq: Status: Active Protocol: Document 03/03/18 08:45 AMB (Rec: 03/06/18 12:40 AMB [email or web address]) Skin Assessment Circumference Measurement 2 Location left knee Measurement (Centimeters) 54 Comments mid patella 1 Location right knee Measurement (Centimeters) 51 Comments mid patella Incisional Assessment Incision Appearance/Comments Covered in bandage, no redness around bandage, Bruising present. PT-OP-K Range of Motion Start: 03/03/18 08:45 Freq: Status: Active Protocol: Document 03/03/18 08:45 AMB (Rec: 03/06/18 12:40 AMB [email or web address]) Knee Goniometric Range of Motion Knee Measured in Degrees Right Patient Position Supine Flexion Passive (degrees) 115 Extension Active (degrees) 5 Left Patient Position Supine Flexion Passive (degrees) 60 Extension Active (degrees) 5 PT-OP-M Strength Start: 03/03/18 08:45 Freq: Status: Active Protocol: Document 03/03/18 08:45 AMB (Rec: 03/06/18 12:40 AMB [email or web address]) Hip Strength Hip Manual Muscle Testing Right Flexion (L2) 4 Good Extension (S1) 4 Good Abduction 4 Good Left Flexion (L2) 3- Fair- Extension (S1) 3- Fair- Abduction 3+ Fair+ Knee Strength Knee Manual Muscle Testing Right Flexion (S2) 4+ Good+ Extension (L3) 4+ Good+ Left Flexion (S2) 4 Good Extension (L3) 4- Good- Ankle/Foot Strength Ankle and Foot Manual Muscle Testing Right Dorsiflexion (L4) 4+ Good+ Plantarflexion (S1) 4+ Good+ Left Dorsiflexion (L4) 4 Good Plantarflexion (S1) 4 Good PT-OP-Q Treatments Start: 03/03/18 08:45 Freq: Status: Active Protocol: Document 03/25/18 13:00 AMB (Rec: 03/25/18 15:50 AMB [email or web address]) Cardio Equipment Recumbent Bicycle Duration (Minutes) 10 Other almost full revolution, but didn't turn on bike Therapeutic Exercises Supine Exercises 3 Supine Exercise Name quad stretch Comments 30x2 Sitting Exercises 1 Sitting Exercise Name knee flexion Reps/Minutes 5x10 Manual Therapy Treatment Taping 1 Body Location calf/ knee Treatment Focus edema control Type of Tape Kinesio Tape Manual Techniques 2 Type lymphatic drainage 1 Type PROM flexion and extension PT-OP-R Modalities Start: 03/03/18 08:45 Freq: Status: Active Protocol: Document 03/25/18 13:00 AMB (Rec: 03/25/18 15:51 AMB [email or web address]) Hot Pack/Cold Pack Treatment Cold Pack Location knee Patient Position Hooklying Treatment Duration (minutes) 10 PT-OP-T Assessment and Plan Start: 03/03/18 08:45 Freq: Status: Active Protocol: Document 03/25/18 13:00 AMB (Rec: 03/25/18 15:50 AMB [email or web address]) Physical Therapy Assessment Assessment Summary Assessment Trying to push pt into flexion but pain is restricting her. Continue to encourage her to bend her knee in swing phase. Physical Therapy Plan Next Visit Focus/Plan Next Note Type Treatment Note Next Visit Plan Progress gait, knee flexion, strengthening.
--- NOTE | 2018-03-29 15:58 | PT.OTN ---
Current Diagnoses Unilateral primary osteoarthritis, left knee (03/29/18) Physical Therapy Treatment Note PT-OP-A Visit Information Start: 03/03/18 08:45 Freq: Status: Active Protocol: Document 03/29/18 13:00 AMB (Rec: 03/29/18 13:09 AMB [id number]) Out-Patient Physical Therapy Visit Information Visit Information Visit Type Treatment Note Visit Start Time 13:00 Visit Stop Time 13:45 Total Visit Minutes 45 Visit Number 8 PT-OP-B Current Condition Start: 03/03/18 08:45 Freq: Status: Active Protocol: Document 03/03/18 08:45 AMB (Rec: 03/06/18 12:15 AMB [email or web address]) Current Condition History of Current Condition Onset Date 02/23/18 Current Complaints s/p L TKA History of Current Condition The patient had a left total knee arthroplasty on 02/23/18. She has been home with her (they have stairs to enter the house with a railing ). She states her pain has been under good control but she has been afraid to bend her knee much. Treatment Goals Patient/Caregiver Goals Stand and walk normally Prior Functional Status Baseline Function- ADL's Independent Baseline Function- Mobility Independent Baseline Function- Gait Pt was not using an assistive device prior to surgery Current Functional Impairments (Reported) Functional Limitations- ADL's Pt ambulating with FWW, has not showered yet, has not returned to driving Personal Factors Other Personal Factors That May Effect hypertension, R knee pain Therapy/Recovery PT-OP-C Subjective Start: 03/03/18 08:45 Freq: Status: Active Protocol: Document 03/29/18 13:00 AMB (Rec: 03/29/18 13:09 AMB [id number]) OP-PT Subjective Patient Comments Patient Comments Pt reports she is doing her HEP, drove yesterday. PT-OP-D Balance Start: 03/03/18 08:45 Freq: Status: Active Protocol: Document 03/03/18 08:45 AMB (Rec: 03/06/18 12:41 AMB [email or web address]) Balance Tests Other Other Balance Tests Performed Unable to perform single leg stance on the L. Unable to perform tandem stance. NBOS EO increases ankle sway. PT-OP-G Mobility & Gait Start: 03/03/18 08:45 Freq: Status: Active Protocol: Document 03/03/18 08:45 AMB (Rec: 03/06/18 12:40 AMB [email or web address]) OP Gait Assessment Comments Gait Comments Pt ambulates with a very stiff knee. Continued to have satinder wrap around knee. Encouraged her in knee flexion during swing and heel strike, but this was difficult. Stair Climbing Evaluation Evaluation Level of Assist On Stairs Standby Assistance Devices Stair Climbing Assistive Devices Left Railing Right Railing Technique/Endurance Stair Climbing Direction Ascend and Descend Stair Climbing Technique Step to Step Number of Steps Climbed 4 PT-OP-J Posture/Palpation/Skin Start: 03/03/18 08:45 Freq: Status: Active Protocol: Document 03/03/18 08:45 AMB (Rec: 03/06/18 12:40 AMB [email or web address]) Skin Assessment Circumference Measurement 2 Location left knee Measurement (Centimeters) 54 Comments mid patella 1 Location right knee Measurement (Centimeters) 51 Comments mid patella Incisional Assessment Incision Appearance/Comments Covered in bandage, no redness around bandage, Bruising present. PT-OP-K Range of Motion Start: 03/03/18 08:45 Freq: Status: Active Protocol: Document 03/03/18 08:45 AMB (Rec: 03/06/18 12:40 AMB [email or web address]) Knee Goniometric Range of Motion Knee Measured in Degrees Right Patient Position Supine Flexion Passive (degrees) 115 Extension Active (degrees) 5 Left Patient Position Supine Flexion Passive (degrees) 60 Extension Active (degrees) 5 PT-OP-M Strength Start: 03/03/18 08:45 Freq: Status: Active Protocol: Document 03/03/18 08:45 AMB (Rec: 03/06/18 12:40 AMB [email or web address]) Hip Strength Hip Manual Muscle Testing Right Flexion (L2) 4 Good Extension (S1) 4 Good Abduction 4 Good Left Flexion (L2) 3- Fair- Extension (S1) 3- Fair- Abduction 3+ Fair+ Knee Strength Knee Manual Muscle Testing Right Flexion (S2) 4+ Good+ Extension (L3) 4+ Good+ Left Flexion (S2) 4 Good Extension (L3) 4- Good- Ankle/Foot Strength Ankle and Foot Manual Muscle Testing Right Dorsiflexion (L4) 4+ Good+ Plantarflexion (S1) 4+ Good+ Left Dorsiflexion (L4) 4 Good Plantarflexion (S1) 4 Good PT-OP-Q Treatments Start: 03/03/18 08:45 Freq: Status: Active Protocol: Document 03/29/18 13:00 AMB (Rec: 03/29/18 13:14 AMB [id number]) Cardio Equipment Recumbent Bicycle Duration (Minutes) 10 Other full rev backward after 5 min Therapeutic Exercises Supine Exercises 3 Supine Exercise Name quad stretch Comments 30x2 2 Supine Exercise Name hip knee 90-90 against wall Comments stretching Sitting Exercises 1 Sitting Exercise Name knee flexion Reps/Minutes 5x10 Manual Therapy Treatment Taping 1 Body Location calf/ knee Treatment Focus edema control Type of Tape Kinesio Tape Manual Techniques 2 Type lymphatic drainage 1 Type PROM flexion and extension PT-OP-R Modalities Start: 03/03/18 08:45 Freq: Status: Active Protocol: Document 03/29/18 13:00 AMB (Rec: 03/29/18 15:43 AMB [email or web address]) Hot Pack/Cold Pack Treatment Cold Pack Location knee Patient Position Hooklying Treatment Duration (minutes) 10 PT-OP-T Assessment and Plan Start: 03/03/18 08:45 Freq: Status: Active Protocol: Document 03/29/18 13:00 AMB (Rec: 03/29/18 15:43 AMB [email or web address]) Physical Therapy Assessment Assessment Summary Assessment Pt with 95 degrees of flexion today continues to have swelling, now more in upper thigh. Steri strips are still intact. Physical Therapy Plan Next Visit Focus/Plan Next Note Type Treatment Note Next Visit Plan Progress gait, knee flexion, strengthening.
--- NOTE | 2018-04-01 15:13 | PT.OTN ---
Current Diagnoses Unilateral primary osteoarthritis, left knee (04/01/18) Physical Therapy Treatment Note PT-OP-A Visit Information Start: 03/03/18 08:45 Freq: Status: Active Protocol: Document 04/01/18 13:00 AMB (Rec: 04/01/18 13:15 AMB [id number]) Out-Patient Physical Therapy Visit Information Visit Information Visit Type Treatment Note Visit Start Time 13:00 Visit Stop Time 13:45 Total Visit Minutes 45 Visit Number 9 PT-OP-B Current Condition Start: 03/03/18 08:45 Freq: Status: Active Protocol: Document 03/03/18 08:45 AMB (Rec: 03/06/18 12:15 AMB [email or web address]) Current Condition History of Current Condition Onset Date 02/23/18 Current Complaints s/p L TKA History of Current Condition The patient had a left total knee arthroplasty on 02/23/18. She has been home with her (they have stairs to enter the house with a railing ). She states her pain has been under good control but she has been afraid to bend her knee much. Treatment Goals Patient/Caregiver Goals Stand and walk normally Prior Functional Status Baseline Function- ADL's Independent Baseline Function- Mobility Independent Baseline Function- Gait Pt was not using an assistive device prior to surgery Current Functional Impairments (Reported) Functional Limitations- ADL's Pt ambulating with FWW, has not showered yet, has not returned to driving Personal Factors Other Personal Factors That May Effect hypertension, R knee pain Therapy/Recovery PT-OP-C Subjective Start: 03/03/18 08:45 Freq: Status: Active Protocol: Document 04/01/18 13:00 AMB (Rec: 04/01/18 13:15 AMB [id number]) OP-PT Subjective Patient Comments Patient Comments Walking around the house without the cane at times. PT-OP-D Balance Start: 03/03/18 08:45 Freq: Status: Active Protocol: Document 03/03/18 08:45 AMB (Rec: 03/06/18 12:41 AMB [email or web address]) Balance Tests Other Other Balance Tests Performed Unable to perform single leg stance on the L. Unable to perform tandem stance. NBOS EO increases ankle sway. PT-OP-G Mobility & Gait Start: 03/03/18 08:45 Freq: Status: Active Protocol: Document 03/03/18 08:45 AMB (Rec: 03/06/18 12:40 AMB [email or web address]) OP Gait Assessment Comments Gait Comments Pt ambulates with a very stiff knee. Continued to have satinder wrap around knee. Encouraged her in knee flexion during swing and heel strike, but this was difficult. Stair Climbing Evaluation Evaluation Level of Assist On Stairs Standby Assistance Devices Stair Climbing Assistive Devices Left Railing Right Railing Technique/Endurance Stair Climbing Direction Ascend and Descend Stair Climbing Technique Step to Step Number of Steps Climbed 4 PT-OP-J Posture/Palpation/Skin Start: 03/03/18 08:45 Freq: Status: Active Protocol: Document 03/03/18 08:45 AMB (Rec: 03/06/18 12:40 AMB [email or web address]) Skin Assessment Circumference Measurement 2 Location left knee Measurement (Centimeters) 54 Comments mid patella 1 Location right knee Measurement (Centimeters) 51 Comments mid patella Incisional Assessment Incision Appearance/Comments Covered in bandage, no redness around bandage, Bruising present. PT-OP-K Range of Motion Start: 03/03/18 08:45 Freq: Status: Active Protocol: Document 03/03/18 08:45 AMB (Rec: 03/06/18 12:40 AMB [email or web address]) Knee Goniometric Range of Motion Knee Measured in Degrees Right Patient Position Supine Flexion Passive (degrees) 115 Extension Active (degrees) 5 Left Patient Position Supine Flexion Passive (degrees) 60 Extension Active (degrees) 5 PT-OP-M Strength Start: 03/03/18 08:45 Freq: Status: Active Protocol: Document 03/03/18 08:45 AMB (Rec: 03/06/18 12:40 AMB [email or web address]) Hip Strength Hip Manual Muscle Testing Right Flexion (L2) 4 Good Extension (S1) 4 Good Abduction 4 Good Left Flexion (L2) 3- Fair- Extension (S1) 3- Fair- Abduction 3+ Fair+ Knee Strength Knee Manual Muscle Testing Right Flexion (S2) 4+ Good+ Extension (L3) 4+ Good+ Left Flexion (S2) 4 Good Extension (L3) 4- Good- Ankle/Foot Strength Ankle and Foot Manual Muscle Testing Right Dorsiflexion (L4) 4+ Good+ Plantarflexion (S1) 4+ Good+ Left Dorsiflexion (L4) 4 Good Plantarflexion (S1) 4 Good PT-OP-Q Treatments Start: 03/03/18 08:45 Freq: Status: Active Protocol: Document 04/01/18 13:00 AMB (Rec: 04/01/18 13:23 AMB [id number]) Cardio Equipment Recumbent Bicycle Duration (Minutes) 10 Seat Position 5 Other forward and backward Gym Equipment Shuttle Recovery Unilateral Squats Resistance 75 Shuttle Recovery Platform Stable Reps/Time 3x10 Therapeutic Exercises Supine Exercises 3 Supine Exercise Name quad stretch Comments 30x2 2 Supine Exercise Name hip knee 90-90 against wall Comments stretching Sitting Exercises 1 Sitting Exercise Name knee flexion Reps/Minutes 5x10 Manual Therapy Treatment Manual Techniques 2 Type lymphatic drainage 1 Type PROM flexion and extension Other Other Manual Treatments scar massage PT-OP-R Modalities Start: 03/03/18 08:45 Freq: Status: Active Protocol: Document 04/01/18 13:00 AMB (Rec: 04/01/18 15:12 AMB [email or web address]) Hot Pack/Cold Pack Treatment Cold Pack Location knee Patient Position Hooklying Treatment Duration (minutes) 10 PT-OP-T Assessment and Plan Start: 03/03/18 08:45 Freq: Status: Active Protocol: Document 04/01/18 13:00 AMB (Rec: 04/01/18 15:12 AMB [email or web address]) Physical Therapy Assessment Assessment Summary Assessment Pt is improving in ROM, up to 97 degrees today. Progress continues to be slow, swelling does continue to limit her. Encouraged her to continue to be more up and active as tolerated. Physical Therapy Plan Next Visit Focus/Plan Next Note Type Treatment Note Next Visit Plan Add in more weightbearing and standing exercises to promote good weightbearing and gait without AD.
--- NOTE | 2018-04-04 13:45 | PT.OTN ---
Current Diagnoses Unilateral primary osteoarthritis, left knee (04/04/18) Physical Therapy Treatment Note PT-OP-A Visit Information Start: 03/03/18 08:45 Freq: Status: Active Protocol: Document 04/04/18 11:15 AMB (Rec: 04/04/18 11:26 AMB [id number]) Out-Patient Physical Therapy Visit Information Visit Information Visit Type Treatment Note Visit Note G codes 05/26 Visit Start Time 11:15 Visit Stop Time 12:00 Total Visit Minutes 45 Visit Number 10 PT-OP-B Current Condition Start: 03/03/18 08:45 Freq: Status: Active Protocol: Document 03/03/18 08:45 AMB (Rec: 03/06/18 12:15 AMB [email or web address]) Current Condition History of Current Condition Onset Date 02/23/18 Current Complaints s/p L TKA History of Current Condition The patient had a left total knee arthroplasty on 02/23/18. She has been home with her (they have stairs to enter the house with a railing ). She states her pain has been under good control but she has been afraid to bend her knee much. Treatment Goals Patient/Caregiver Goals Stand and walk normally Prior Functional Status Baseline Function- ADL's Independent Baseline Function- Mobility Independent Baseline Function- Gait Pt was not using an assistive device prior to surgery Current Functional Impairments (Reported) Functional Limitations- ADL's Pt ambulating with FWW, has not showered yet, has not returned to driving Personal Factors Other Personal Factors That May Effect hypertension, R knee pain Therapy/Recovery PT-OP-C Subjective Start: 03/03/18 08:45 Freq: Status: Active Protocol: Document 04/04/18 11:15 AMB (Rec: 04/04/18 11:26 AMB [id number]) OP-PT Subjective Patient Comments Patient Comments Today she attends pt without her cane, but she is limping. PT-OP-D Balance Start: 03/03/18 08:45 Freq: Status: Active Protocol: Document 03/03/18 08:45 AMB (Rec: 03/06/18 12:41 AMB [email or web address]) Balance Tests Other Other Balance Tests Performed Unable to perform single leg stance on the L. Unable to perform tandem stance. NBOS EO increases ankle sway. PT-OP-G Mobility & Gait Start: 03/03/18 08:45 Freq: Status: Active Protocol: Document 03/03/18 08:45 AMB (Rec: 03/06/18 12:40 AMB [email or web address]) OP Gait Assessment Comments Gait Comments Pt ambulates with a very stiff knee. Continued to have satinder wrap around knee. Encouraged her in knee flexion during swing and heel strike, but this was difficult. Stair Climbing Evaluation Evaluation Level of Assist On Stairs Standby Assistance Devices Stair Climbing Assistive Devices Left Railing Right Railing Technique/Endurance Stair Climbing Direction Ascend and Descend Stair Climbing Technique Step to Step Number of Steps Climbed 4 PT-OP-J Posture/Palpation/Skin Start: 03/03/18 08:45 Freq: Status: Active Protocol: Document 03/03/18 08:45 AMB (Rec: 03/06/18 12:40 AMB [email or web address]) Skin Assessment Circumference Measurement 2 Location left knee Measurement (Centimeters) 54 Comments mid patella 1 Location right knee Measurement (Centimeters) 51 Comments mid patella Incisional Assessment Incision Appearance/Comments Covered in bandage, no redness around bandage, Bruising present. PT-OP-K Range of Motion Start: 03/03/18 08:45 Freq: Status: Active Protocol: Document 03/03/18 08:45 AMB (Rec: 03/06/18 12:40 AMB [email or web address]) Knee Goniometric Range of Motion Knee Measured in Degrees Right Patient Position Supine Flexion Passive (degrees) 115 Extension Active (degrees) 5 Left Patient Position Supine Flexion Passive (degrees) 60 Extension Active (degrees) 5 PT-OP-M Strength Start: 03/03/18 08:45 Freq: Status: Active Protocol: Document 03/03/18 08:45 AMB (Rec: 03/06/18 12:40 AMB [email or web address]) Hip Strength Hip Manual Muscle Testing Right Flexion (L2) 4 Good Extension (S1) 4 Good Abduction 4 Good Left Flexion (L2) 3- Fair- Extension (S1) 3- Fair- Abduction 3+ Fair+ Knee Strength Knee Manual Muscle Testing Right Flexion (S2) 4+ Good+ Extension (L3) 4+ Good+ Left Flexion (S2) 4 Good Extension (L3) 4- Good- Ankle/Foot Strength Ankle and Foot Manual Muscle Testing Right Dorsiflexion (L4) 4+ Good+ Plantarflexion (S1) 4+ Good+ Left Dorsiflexion (L4) 4 Good Plantarflexion (S1) 4 Good PT-OP-Q Treatments Start: 03/03/18 08:45 Freq: Status: Active Protocol: Document 04/04/18 11:15 AMB (Rec: 04/04/18 11:30 AMB [id number]) Cardio Equipment Recumbent Bicycle Duration (Minutes) 10 Seat Position 5 Other forward and backward Therapeutic Exercises Supine Exercises 3 Supine Exercise Name quad stretch Comments 30x2 2 Supine Exercise Name hip knee 90-90 against wall Comments stretching Sitting Exercises 1 Sitting Exercise Name knee flexion Reps/Minutes 5x10 Standing Exercises 2 Standing Exercise Name sidestep squats Comments at railing 1 Standing Exercise Name lunges Comments at railing Manual Therapy Treatment Taping 1 Body Location calf/ knee/thigh Treatment Focus edema control Type of Tape Kinesio Tape Manual Techniques 2 Type lymphatic drainage 1 Type PROM flexion and extension Other Other Manual Treatments scar massage PT-OP-R Modalities Start: 03/03/18 08:45 Freq: Status: Active Protocol: Document 04/04/18 11:15 AMB (Rec: 04/04/18 12:59 AMB [email or web address]) Hot Pack/Cold Pack Treatment Cold Pack Location knee Patient Position Hooklying Treatment Duration (minutes) 10 PT-OP-T Assessment and Plan Start: 03/03/18 08:45 Freq: Status: Active Protocol: Document 04/04/18 11:15 AMB (Rec: 04/04/18 12:59 AMB [email or web address]) Physical Therapy Assessment Assessment Summary Assessment Pt's scar will need more work, swelling better in lower leg, but remains around thigh. Physical Therapy Plan Next Visit Focus/Plan Next Note Type Treatment Note Next Visit Plan Add in more weightbearing and standing exercises to promote good weightbearing and gait without AD.
--- NOTE | 2018-04-06 15:16 | PT.OTN ---
Current Diagnoses Unilateral primary osteoarthritis, left knee (04/06/18) Physical Therapy Treatment Note PT-OP-A Visit Information Start: 03/03/18 08:45 Freq: Status: Active Protocol: Document 04/06/18 11:15 AMB (Rec: 04/06/18 11:27 AMB [id number]) Out-Patient Physical Therapy Visit Information Visit Information Visit Type Treatment Note Visit Note G codes 06/26 Visit Start Time 11:15 Visit Stop Time 12:00 Total Visit Minutes 45 Visit Number 11 PT-OP-B Current Condition Start: 03/03/18 08:45 Freq: Status: Active Protocol: Document 03/03/18 08:45 AMB (Rec: 03/06/18 12:15 AMB [email or web address]) Current Condition History of Current Condition Onset Date 02/23/18 Current Complaints s/p L TKA History of Current Condition The patient had a left total knee arthroplasty on 02/23/18. She has been home with her (they have stairs to enter the house with a railing ). She states her pain has been under good control but she has been afraid to bend her knee much. Treatment Goals Patient/Caregiver Goals Stand and walk normally Prior Functional Status Baseline Function- ADL's Independent Baseline Function- Mobility Independent Baseline Function- Gait Pt was not using an assistive device prior to surgery Current Functional Impairments (Reported) Functional Limitations- ADL's Pt ambulating with FWW, has not showered yet, has not returned to driving Personal Factors Other Personal Factors That May Effect hypertension, R knee pain Therapy/Recovery PT-OP-C Subjective Start: 03/03/18 08:45 Freq: Status: Active Protocol: Document 04/06/18 11:15 AMB (Rec: 04/06/18 11:27 AMB [id number]) OP-PT Subjective Patient Comments Patient Comments Pt is doing well, was able to do some chores without thinking about her knee, but then had to ice it. PT-OP-D Balance Start: 03/03/18 08:45 Freq: Status: Active Protocol: Document 03/03/18 08:45 AMB (Rec: 03/06/18 12:41 AMB [email or web address]) Balance Tests Other Other Balance Tests Performed Unable to perform single leg stance on the L. Unable to perform tandem stance. NBOS EO increases ankle sway. PT-OP-G Mobility & Gait Start: 03/03/18 08:45 Freq: Status: Active Protocol: Document 03/03/18 08:45 AMB (Rec: 03/06/18 12:40 AMB [email or web address]) OP Gait Assessment Comments Gait Comments Pt ambulates with a very stiff knee. Continued to have satinder wrap around knee. Encouraged her in knee flexion during swing and heel strike, but this was difficult. Stair Climbing Evaluation Evaluation Level of Assist On Stairs Standby Assistance Devices Stair Climbing Assistive Devices Left Railing Right Railing Technique/Endurance Stair Climbing Direction Ascend and Descend Stair Climbing Technique Step to Step Number of Steps Climbed 4 PT-OP-J Posture/Palpation/Skin Start: 03/03/18 08:45 Freq: Status: Active Protocol: Document 03/03/18 08:45 AMB (Rec: 03/06/18 12:40 AMB [email or web address]) Skin Assessment Circumference Measurement 2 Location left knee Measurement (Centimeters) 54 Comments mid patella 1 Location right knee Measurement (Centimeters) 51 Comments mid patella Incisional Assessment Incision Appearance/Comments Covered in bandage, no redness around bandage, Bruising present. PT-OP-K Range of Motion Start: 03/03/18 08:45 Freq: Status: Active Protocol: Document 03/03/18 08:45 AMB (Rec: 03/06/18 12:40 AMB [email or web address]) Knee Goniometric Range of Motion Knee Measured in Degrees Right Patient Position Supine Flexion Passive (degrees) 115 Extension Active (degrees) 5 Left Patient Position Supine Flexion Passive (degrees) 60 Extension Active (degrees) 5 PT-OP-M Strength Start: 03/03/18 08:45 Freq: Status: Active Protocol: Document 03/03/18 08:45 AMB (Rec: 03/06/18 12:40 AMB [email or web address]) Hip Strength Hip Manual Muscle Testing Right Flexion (L2) 4 Good Extension (S1) 4 Good Abduction 4 Good Left Flexion (L2) 3- Fair- Extension (S1) 3- Fair- Abduction 3+ Fair+ Knee Strength Knee Manual Muscle Testing Right Flexion (S2) 4+ Good+ Extension (L3) 4+ Good+ Left Flexion (S2) 4 Good Extension (L3) 4- Good- Ankle/Foot Strength Ankle and Foot Manual Muscle Testing Right Dorsiflexion (L4) 4+ Good+ Plantarflexion (S1) 4+ Good+ Left Dorsiflexion (L4) 4 Good Plantarflexion (S1) 4 Good PT-OP-Q Treatments Start: 03/03/18 08:45 Freq: Status: Active Protocol: Document 04/06/18 11:15 AMB (Rec: 04/06/18 13:01 AMB [email or web address]) Cardio Equipment Recumbent Bicycle Duration (Minutes) 10 Seat Position 5 Other forward and backward Therapeutic Exercises Supine Exercises 3 Supine Exercise Name quad stretch Comments 30x2 Standing Exercises 4 Standing Exercise Name step up Reps/Minutes 2x10 Comments 4 then 6 3 Standing Exercise Name calf stretch Comments NITA 2 Standing Exercise Name sidestep squats Reps/Minutes 2x10 Comments at railing 1 Standing Exercise Name lunges Reps/Minutes 3x10 Comments at railing Manual Therapy Treatment Manual Techniques 2 Type lymphatic drainage 1 Type PROM flexion and extension Other Other Manual Treatments scar massage PT-OP-R Modalities Start: 03/03/18 08:45 Freq: Status: Active Protocol: Document 04/06/18 11:15 AMB (Rec: 04/06/18 15:12 AMB [email or web address]) Hot Pack/Cold Pack Treatment Cold Pack Location knee Patient Position Hooklying Treatment Duration (minutes) 10 PT-OP-T Assessment and Plan Start: 03/03/18 08:45 Freq: Status: Active Protocol: Document 04/06/18 11:15 AMB (Rec: 04/06/18 15:12 AMB [email or web address]) Physical Therapy Assessment Assessment Summary Assessment Pt tolerated scar massage and should be able to do that at home. Flexion still restricted by pain, but pt is able to get a full revolution on the bike. Physical Therapy Plan Next Visit Focus/Plan Next Note Type Treatment Note Next Visit Plan Add in more weightbearing and standing exercises to promote good weightbearing and gait without AD.
--- NOTE | 2018-04-12 16:11 | PT.OTN ---
Current Diagnoses Unilateral primary osteoarthritis, left knee (04/12/18) Physical Therapy Treatment Note PT-OP-A Visit Information Start: 03/03/18 08:45 Freq: Status: Active Protocol: Document 04/12/18 13:00 AMB (Rec: 04/12/18 13:12 AMB [email or web address]) Out-Patient Physical Therapy Visit Information Visit Information Visit Type Treatment Note Visit Note G codes 07/24 Visit Start Time 11:15 Visit Stop Time 12:00 Total Visit Minutes 45 Visit Number 12 PT-OP-B Current Condition Start: 03/03/18 08:45 Freq: Status: Active Protocol: Document 03/03/18 08:45 AMB (Rec: 03/06/18 12:15 AMB [email or web address]) Current Condition History of Current Condition Onset Date 02/23/18 Current Complaints s/p L TKA History of Current Condition The patient had a left total knee arthroplasty on 02/23/18. She has been home with her (they have stairs to enter the house with a railing ). She states her pain has been under good control but she has been afraid to bend her knee much. Treatment Goals Patient/Caregiver Goals Stand and walk normally Prior Functional Status Baseline Function- ADL's Independent Baseline Function- Mobility Independent Baseline Function- Gait Pt was not using an assistive device prior to surgery Current Functional Impairments (Reported) Functional Limitations- ADL's Pt ambulating with FWW, has not showered yet, has not returned to driving Personal Factors Other Personal Factors That May Effect hypertension, R knee pain Therapy/Recovery PT-OP-C Subjective Start: 03/03/18 08:45 Freq: Status: Active Protocol: Document 04/12/18 13:00 AMB (Rec: 04/12/18 13:12 AMB [id number]) OP-PT Subjective Patient Comments Patient Comments Pt reports she had some skin irritation after using a new lotion over her scar. PT-OP-D Balance Start: 03/03/18 08:45 Freq: Status: Active Protocol: Document 03/03/18 08:45 AMB (Rec: 03/06/18 12:41 AMB [email or web address]) Balance Tests Other Other Balance Tests Performed Unable to perform single leg stance on the L. Unable to perform tandem stance. NBOS EO increases ankle sway. PT-OP-G Mobility & Gait Start: 03/03/18 08:45 Freq: Status: Active Protocol: Document 03/03/18 08:45 AMB (Rec: 03/06/18 12:40 AMB [email or web address]) OP Gait Assessment Comments Gait Comments Pt ambulates with a very stiff knee. Continued to have satinder wrap around knee. Encouraged her in knee flexion during swing and heel strike, but this was difficult. Stair Climbing Evaluation Evaluation Level of Assist On Stairs Standby Assistance Devices Stair Climbing Assistive Devices Left Railing Right Railing Technique/Endurance Stair Climbing Direction Ascend and Descend Stair Climbing Technique Step to Step Number of Steps Climbed 4 PT-OP-J Posture/Palpation/Skin Start: 03/03/18 08:45 Freq: Status: Active Protocol: Document 03/03/18 08:45 AMB (Rec: 03/06/18 12:40 AMB [email or web address]) Skin Assessment Circumference Measurement 2 Location left knee Measurement (Centimeters) 54 Comments mid patella 1 Location right knee Measurement (Centimeters) 51 Comments mid patella Incisional Assessment Incision Appearance/Comments Covered in bandage, no redness around bandage, Bruising present. PT-OP-K Range of Motion Start: 03/03/18 08:45 Freq: Status: Active Protocol: Document 03/03/18 08:45 AMB (Rec: 03/06/18 12:40 AMB [email or web address]) Knee Goniometric Range of Motion Knee Measured in Degrees Right Patient Position Supine Flexion Passive (degrees) 115 Extension Active (degrees) 5 Left Patient Position Supine Flexion Passive (degrees) 60 Extension Active (degrees) 5 PT-OP-M Strength Start: 03/03/18 08:45 Freq: Status: Active Protocol: Document 03/03/18 08:45 AMB (Rec: 03/06/18 12:40 AMB [email or web address]) Hip Strength Hip Manual Muscle Testing Right Flexion (L2) 4 Good Extension (S1) 4 Good Abduction 4 Good Left Flexion (L2) 3- Fair- Extension (S1) 3- Fair- Abduction 3+ Fair+ Knee Strength Knee Manual Muscle Testing Right Flexion (S2) 4+ Good+ Extension (L3) 4+ Good+ Left Flexion (S2) 4 Good Extension (L3) 4- Good- Ankle/Foot Strength Ankle and Foot Manual Muscle Testing Right Dorsiflexion (L4) 4+ Good+ Plantarflexion (S1) 4+ Good+ Left Dorsiflexion (L4) 4 Good Plantarflexion (S1) 4 Good PT-OP-Q Treatments Start: 03/03/18 08:45 Freq: Status: Active Protocol: Document 04/12/18 13:00 AMB (Rec: 04/12/18 16:10 AMB [email or web address]) Cardio Equipment Recumbent Bicycle Duration (Minutes) 10 Seat Position 5 Other forward and backward Therapeutic Exercises Supine Exercises 3 Supine Exercise Name quad stretch Comments 30x2 Standing Exercises 5 Standing Exercise Name marches to increase single leg stance Reps/Minutes 3x10 3 Standing Exercise Name calf stretch Comments NITA 1 Standing Exercise Name lunges Reps/Minutes 3x10 Comments at railing Manual Therapy Treatment Manual Techniques 2 Type lymphatic drainage 1 Type PROM flexion and extension Other Other Manual Treatments scar massage PT-OP-R Modalities Start: 03/03/18 08:45 Freq: Status: Active Protocol: Document 04/12/18 13:00 AMB (Rec: 04/12/18 16:10 AMB [email or web address]) Hot Pack/Cold Pack Treatment Cold Pack Location knee Patient Position Hooklying Treatment Duration (minutes) 10 PT-OP-T Assessment and Plan Start: 03/03/18 08:45 Freq: Status: Active Protocol: Document 04/12/18 13:00 AMB (Rec: 04/12/18 16:10 AMB [email or web address]) Physical Therapy Assessment Assessment Summary Assessment Pt got to 100 degrees of flexion PROM today. Continues to have tenderness over skin of lateral thigh. Worse edema today, states she did not ice as much while her family was over for Thanksgiving. Physical Therapy Plan Next Visit Focus/Plan Next Note Type Treatment Note Next Visit Plan Add in more weightbearing and standing exercises to promote good weightbearing and gait without AD.
--- NOTE | 2018-04-15 15:41 | PT.OTN ---
Current Diagnoses Unilateral primary osteoarthritis, left knee (04/15/18) Physical Therapy Treatment Note PT-OP-A Visit Information Start: 03/03/18 08:45 Freq: Status: Active Protocol: Document 04/15/18 14:30 AMB (Rec: 04/15/18 15:34 AMB [email or web address]) Out-Patient Physical Therapy Visit Information Visit Information Visit Type Treatment Note Visit Note G codes 08/24 Visit Start Time 14:30 Visit Stop Time 15:15 Total Visit Minutes 45 Visit Number 13 PT-OP-B Current Condition Start: 03/03/18 08:45 Freq: Status: Active Protocol: Document 03/03/18 08:45 AMB (Rec: 03/06/18 12:15 AMB [email or web address]) Current Condition History of Current Condition Onset Date 02/23/18 Current Complaints s/p L TKA History of Current Condition The patient had a left total knee arthroplasty on 02/23/18. She has been home with her (they have stairs to enter the house with a railing ). She states her pain has been under good control but she has been afraid to bend her knee much. Treatment Goals Patient/Caregiver Goals Stand and walk normally Prior Functional Status Baseline Function- ADL's Independent Baseline Function- Mobility Independent Baseline Function- Gait Pt was not using an assistive device prior to surgery Current Functional Impairments (Reported) Functional Limitations- ADL's Pt ambulating with FWW, has not showered yet, has not returned to driving Personal Factors Other Personal Factors That May Effect hypertension, R knee pain Therapy/Recovery PT-OP-C Subjective Start: 03/03/18 08:45 Freq: Status: Active Protocol: Document 04/15/18 14:30 AMB (Rec: 04/15/18 15:34 AMB [email or web address]) OP-PT Subjective Patient Comments Patient Comments Pt saw ortho yesterday. He said to continue working on extension, not concerned about her swelling. PT-OP-D Balance Start: 03/03/18 08:45 Freq: Status: Active Protocol: Document 03/03/18 08:45 AMB (Rec: 03/06/18 12:41 AMB [email or web address]) Balance Tests Other Other Balance Tests Performed Unable to perform single leg stance on the L. Unable to perform tandem stance. NBOS EO increases ankle sway. PT-OP-G Mobility & Gait Start: 03/03/18 08:45 Freq: Status: Active Protocol: Document 03/03/18 08:45 AMB (Rec: 03/06/18 12:40 AMB [email or web address]) OP Gait Assessment Comments Gait Comments Pt ambulates with a very stiff knee. Continued to have satinder wrap around knee. Encouraged her in knee flexion during swing and heel strike, but this was difficult. Stair Climbing Evaluation Evaluation Level of Assist On Stairs Standby Assistance Devices Stair Climbing Assistive Devices Left Railing Right Railing Technique/Endurance Stair Climbing Direction Ascend and Descend Stair Climbing Technique Step to Step Number of Steps Climbed 4 PT-OP-J Posture/Palpation/Skin Start: 03/03/18 08:45 Freq: Status: Active Protocol: Document 03/03/18 08:45 AMB (Rec: 03/06/18 12:40 AMB [email or web address]) Skin Assessment Circumference Measurement 2 Location left knee Measurement (Centimeters) 54 Comments mid patella 1 Location right knee Measurement (Centimeters) 51 Comments mid patella Incisional Assessment Incision Appearance/Comments Covered in bandage, no redness around bandage, Bruising present. PT-OP-K Range of Motion Start: 03/03/18 08:45 Freq: Status: Active Protocol: Document 03/03/18 08:45 AMB (Rec: 03/06/18 12:40 AMB [email or web address]) Knee Goniometric Range of Motion Knee Measured in Degrees Right Patient Position Supine Flexion Passive (degrees) 115 Extension Active (degrees) 5 Left Patient Position Supine Flexion Passive (degrees) 60 Extension Active (degrees) 5 PT-OP-M Strength Start: 03/03/18 08:45 Freq: Status: Active Protocol: Document 03/03/18 08:45 AMB (Rec: 03/06/18 12:40 AMB [email or web address]) Hip Strength Hip Manual Muscle Testing Right Flexion (L2) 4 Good Extension (S1) 4 Good Abduction 4 Good Left Flexion (L2) 3- Fair- Extension (S1) 3- Fair- Abduction 3+ Fair+ Knee Strength Knee Manual Muscle Testing Right Flexion (S2) 4+ Good+ Extension (L3) 4+ Good+ Left Flexion (S2) 4 Good Extension (L3) 4- Good- Ankle/Foot Strength Ankle and Foot Manual Muscle Testing Right Dorsiflexion (L4) 4+ Good+ Plantarflexion (S1) 4+ Good+ Left Dorsiflexion (L4) 4 Good Plantarflexion (S1) 4 Good PT-OP-Q Treatments Start: 03/03/18 08:45 Freq: Status: Active Protocol: Document 04/15/18 14:30 AMB (Rec: 04/15/18 15:34 AMB [email or web address]) Cardio Equipment Recumbent Bicycle Duration (Minutes) 10 Seat Position 5, then 3 Other forward only Therapeutic Exercises Supine Exercises 3 Supine Exercise Name quad stretch Comments 30x2 Standing Exercises 5 Standing Exercise Name marches to increase single leg stance Reps/Minutes 3x10 2 Standing Exercise Name sidestep squats Reps/Minutes 2x10 Comments at railing 1 Standing Exercise Name lunges Reps/Minutes 3x10 Comments at railing Manual Therapy Treatment Manual Techniques 2 Type lymphatic drainage 1 Type PROM flexion and extension Other Other Manual Treatments scar massage PT-OP-R Modalities Start: 03/03/18 08:45 Freq: Status: Active Protocol: Document 04/15/18 14:30 AMB (Rec: 04/15/18 15:41 AMB [email or web address]) Hot Pack/Cold Pack Treatment Cold Pack Location knee Patient Position Hooklying Treatment Duration (minutes) 10 PT-OP-T Assessment and Plan Start: 03/03/18 08:45 Freq: Status: Active Protocol: Document 04/15/18 14:30 AMB (Rec: 04/15/18 15:34 AMB [email or web address]) Physical Therapy Assessment Assessment Summary Assessment Continued pitting edema. Sensitive with end range extension, 100 degrees of PROM again. Physical Therapy Plan Next Visit Focus/Plan Next Note Type Treatment Note Next Visit Plan Add in more weightbearing and standing exercises to promote good weightbearing and gait without AD.
--- NOTE | 2018-04-18 14:31 | PT.OTN ---
Current Diagnoses Unilateral primary osteoarthritis, left knee (04/18/18) Physical Therapy Treatment Note PT-OP-A Visit Information Start: 03/03/18 08:45 Freq: Status: Active Protocol: Document 04/18/18 09:00 AMB (Rec: 04/18/18 09:13 AMB [id number]) Out-Patient Physical Therapy Visit Information Visit Information Visit Type Treatment Note Visit Note G codes 08/24 Visit Start Time 09:00 Visit Stop Time 09:45 Total Visit Minutes 45 Visit Number 14 PT-OP-B Current Condition Start: 03/03/18 08:45 Freq: Status: Active Protocol: Document 03/03/18 08:45 AMB (Rec: 03/06/18 12:15 AMB [email or web address]) Current Condition History of Current Condition Onset Date 02/23/18 Current Complaints s/p L TKA History of Current Condition The patient had a left total knee arthroplasty on 02/23/18. She has been home with her (they have stairs to enter the house with a railing ). She states her pain has been under good control but she has been afraid to bend her knee much. Treatment Goals Patient/Caregiver Goals Stand and walk normally Prior Functional Status Baseline Function- ADL's Independent Baseline Function- Mobility Independent Baseline Function- Gait Pt was not using an assistive device prior to surgery Current Functional Impairments (Reported) Functional Limitations- ADL's Pt ambulating with FWW, has not showered yet, has not returned to driving Personal Factors Other Personal Factors That May Effect hypertension, R knee pain Therapy/Recovery PT-OP-C Subjective Start: 03/03/18 08:45 Freq: Status: Active Protocol: Document 04/18/18 09:00 AMB (Rec: 04/18/18 09:13 AMB [id number]) OP-PT Subjective Patient Comments Patient Comments Pt has been practicing her balance exercises. Sensitive at thigh laterally. PT-OP-D Balance Start: 03/03/18 08:45 Freq: Status: Active Protocol: Document 03/03/18 08:45 AMB (Rec: 03/06/18 12:41 AMB [email or web address]) Balance Tests Other Other Balance Tests Performed Unable to perform single leg stance on the L. Unable to perform tandem stance. NBOS EO increases ankle sway. PT-OP-G Mobility & Gait Start: 03/03/18 08:45 Freq: Status: Active Protocol: Document 03/03/18 08:45 AMB (Rec: 03/06/18 12:40 AMB [email or web address]) OP Gait Assessment Comments Gait Comments Pt ambulates with a very stiff knee. Continued to have satinder wrap around knee. Encouraged her in knee flexion during swing and heel strike, but this was difficult. Stair Climbing Evaluation Evaluation Level of Assist On Stairs Standby Assistance Devices Stair Climbing Assistive Devices Left Railing Right Railing Technique/Endurance Stair Climbing Direction Ascend and Descend Stair Climbing Technique Step to Step Number of Steps Climbed 4 PT-OP-J Posture/Palpation/Skin Start: 03/03/18 08:45 Freq: Status: Active Protocol: Document 03/03/18 08:45 AMB (Rec: 03/06/18 12:40 AMB [email or web address]) Skin Assessment Circumference Measurement 2 Location left knee Measurement (Centimeters) 54 Comments mid patella 1 Location right knee Measurement (Centimeters) 51 Comments mid patella Incisional Assessment Incision Appearance/Comments Covered in bandage, no redness around bandage, Bruising present. PT-OP-K Range of Motion Start: 03/03/18 08:45 Freq: Status: Active Protocol: Document 03/03/18 08:45 AMB (Rec: 03/06/18 12:40 AMB [email or web address]) Knee Goniometric Range of Motion Knee Measured in Degrees Right Patient Position Supine Flexion Passive (degrees) 115 Extension Active (degrees) 5 Left Patient Position Supine Flexion Passive (degrees) 60 Extension Active (degrees) 5 PT-OP-M Strength Start: 03/03/18 08:45 Freq: Status: Active Protocol: Document 03/03/18 08:45 AMB (Rec: 03/06/18 12:40 AMB [email or web address]) Hip Strength Hip Manual Muscle Testing Right Flexion (L2) 4 Good Extension (S1) 4 Good Abduction 4 Good Left Flexion (L2) 3- Fair- Extension (S1) 3- Fair- Abduction 3+ Fair+ Knee Strength Knee Manual Muscle Testing Right Flexion (S2) 4+ Good+ Extension (L3) 4+ Good+ Left Flexion (S2) 4 Good Extension (L3) 4- Good- Ankle/Foot Strength Ankle and Foot Manual Muscle Testing Right Dorsiflexion (L4) 4+ Good+ Plantarflexion (S1) 4+ Good+ Left Dorsiflexion (L4) 4 Good Plantarflexion (S1) 4 Good PT-OP-Q Treatments Start: 03/03/18 08:45 Freq: Status: Active Protocol: Document 04/18/18 09:00 AMB (Rec: 04/18/18 09:47 AMB [id number]) Cardio Equipment Recumbent Bicycle Duration (Minutes) 10 Seat Position 5, then 3 Other forward only Therapeutic Exercises Supine Exercises 3 Supine Exercise Name quad stretch Comments 30x2 Standing Exercises 5 Standing Exercise Name marches to increase single leg stance Reps/Minutes 3x10 3 Standing Exercise Name calf stretch Comments NITA 1 Standing Exercise Name lunges Reps/Minutes 3x10 Comments at railing Gait Training Gait Activity 1 Description Ambulation over smooth surface Comments with focus on reducing antalgic gait, getting good weightshift Manual Therapy Treatment Manual Techniques 1 Type PROM flexion and extension Other Other Manual Treatments scar massage PT-OP-R Modalities Start: 03/03/18 08:45 Freq: Status: Active Protocol: Document 04/18/18 09:00 AMB (Rec: 04/18/18 14:23 AMB [email or web address]) Hot Pack/Cold Pack Treatment Cold Pack Location knee Patient Position Hooklying Treatment Duration (minutes) 10 PT-OP-T Assessment and Plan Start: 03/03/18 08:45 Freq: Status: Active Protocol: Document 04/18/18 09:00 AMB (Rec: 04/18/18 09:47 AMB [id number]) Physical Therapy Assessment Assessment Summary Assessment Better control of edema today. Physical Therapy Plan Next Visit Focus/Plan Next Note Type Treatment Note Next Visit Plan Gait/ stair training for even weightbearing
--- NOTE | 2018-04-22 14:27 | PT.OTN ---
Current Diagnoses Unilateral primary osteoarthritis, left knee (04/22/18) Physical Therapy Treatment Note PT-OP-A Visit Information Start: 03/03/18 08:45 Freq: Status: Active Protocol: Document 04/22/18 13:15 AMB (Rec: 04/22/18 13:19 AMB [id number]) Out-Patient Physical Therapy Visit Information Visit Information Visit Type Treatment Note Visit Note G codes 10/24 Visit Start Time 13:15 Visit Stop Time 14:00 Total Visit Minutes 45 Visit Number 15 PT-OP-B Current Condition Start: 03/03/18 08:45 Freq: Status: Active Protocol: Document 03/03/18 08:45 AMB (Rec: 03/06/18 12:15 AMB [email or web address]) Current Condition History of Current Condition Onset Date 02/23/18 Current Complaints s/p L TKA History of Current Condition The patient had a left total knee arthroplasty on 02/23/18. She has been home with her (they have stairs to enter the house with a railing ). She states her pain has been under good control but she has been afraid to bend her knee much. Treatment Goals Patient/Caregiver Goals Stand and walk normally Prior Functional Status Baseline Function- ADL's Independent Baseline Function- Mobility Independent Baseline Function- Gait Pt was not using an assistive device prior to surgery Current Functional Impairments (Reported) Functional Limitations- ADL's Pt ambulating with FWW, has not showered yet, has not returned to driving Personal Factors Other Personal Factors That May Effect hypertension, R knee pain Therapy/Recovery PT-OP-C Subjective Start: 03/03/18 08:45 Freq: Status: Active Protocol: Document 04/22/18 13:15 AMB (Rec: 04/22/18 13:19 AMB [id number]) OP-PT Subjective Patient Comments Patient Comments Pt arrives 15 minutes late. She tried walking around [place] and that was sore. PT-OP-D Balance Start: 03/03/18 08:45 Freq: Status: Active Protocol: Document 03/03/18 08:45 AMB (Rec: 03/06/18 12:41 AMB [email or web address]) Balance Tests Other Other Balance Tests Performed Unable to perform single leg stance on the L. Unable to perform tandem stance. NBOS EO increases ankle sway. PT-OP-G Mobility & Gait Start: 03/03/18 08:45 Freq: Status: Active Protocol: Document 03/03/18 08:45 AMB (Rec: 03/06/18 12:40 AMB [email or web address]) OP Gait Assessment Comments Gait Comments Pt ambulates with a very stiff knee. Continued to have satinder wrap around knee. Encouraged her in knee flexion during swing and heel strike, but this was difficult. Stair Climbing Evaluation Evaluation Level of Assist On Stairs Standby Assistance Devices Stair Climbing Assistive Devices Left Railing Right Railing Technique/Endurance Stair Climbing Direction Ascend and Descend Stair Climbing Technique Step to Step Number of Steps Climbed 4 PT-OP-J Posture/Palpation/Skin Start: 03/03/18 08:45 Freq: Status: Active Protocol: Document 03/03/18 08:45 AMB (Rec: 03/06/18 12:40 AMB [email or web address]) Skin Assessment Circumference Measurement 2 Location left knee Measurement (Centimeters) 54 Comments mid patella 1 Location right knee Measurement (Centimeters) 51 Comments mid patella Incisional Assessment Incision Appearance/Comments Covered in bandage, no redness around bandage, Bruising present. PT-OP-K Range of Motion Start: 03/03/18 08:45 Freq: Status: Active Protocol: Document 03/03/18 08:45 AMB (Rec: 03/06/18 12:40 AMB [email or web address]) Knee Goniometric Range of Motion Knee Measured in Degrees Right Patient Position Supine Flexion Passive (degrees) 115 Extension Active (degrees) 5 Left Patient Position Supine Flexion Passive (degrees) 60 Extension Active (degrees) 5 PT-OP-M Strength Start: 03/03/18 08:45 Freq: Status: Active Protocol: Document 03/03/18 08:45 AMB (Rec: 03/06/18 12:40 AMB [email or web address]) Hip Strength Hip Manual Muscle Testing Right Flexion (L2) 4 Good Extension (S1) 4 Good Abduction 4 Good Left Flexion (L2) 3- Fair- Extension (S1) 3- Fair- Abduction 3+ Fair+ Knee Strength Knee Manual Muscle Testing Right Flexion (S2) 4+ Good+ Extension (L3) 4+ Good+ Left Flexion (S2) 4 Good Extension (L3) 4- Good- Ankle/Foot Strength Ankle and Foot Manual Muscle Testing Right Dorsiflexion (L4) 4+ Good+ Plantarflexion (S1) 4+ Good+ Left Dorsiflexion (L4) 4 Good Plantarflexion (S1) 4 Good PT-OP-Q Treatments Start: 03/03/18 08:45 Freq: Status: Active Protocol: Document 04/22/18 13:00 AMB (Rec: 04/23/18 14:26 AMB [email or web address]) Cardio Equipment Recumbent Bicycle Duration (Minutes) 8 Seat Position 5, then 3 Other forward only Therapeutic Exercises Standing Exercises 2 Standing Exercise Name sidestep squats Reps/Minutes 2x10 Comments at railing 1 Standing Exercise Name lunges Reps/Minutes 3x10 Comments at railing Manual Therapy Treatment Manual Techniques 1 Type PROM flexion and extension Other Other Manual Treatments scar massage PT-OP-R Modalities Start: 03/03/18 08:45 Freq: Status: Active Protocol: Document 04/22/18 13:00 AMB (Rec: 04/23/18 14:27 AMB [email or web address]) Hot Pack/Cold Pack Treatment Cold Pack Location knee Patient Position Hooklying Treatment Duration (minutes) 10 PT-OP-T Assessment and Plan Start: 03/03/18 08:45 Freq: Status: Active Protocol: Document 04/22/18 13:00 AMB (Rec: 04/23/18 14:26 AMB [email or web address]) Physical Therapy Assessment Assessment Summary Assessment 102 degrees of flexion, continued difficulty with descending stairs step over step. Physical Therapy Plan Next Visit Focus/Plan Next Note Type Treatment Note Next Visit Plan Gait/ stair training for even weightbearing
--- NOTE | 2018-04-26 15:50 | PT.OTN ---
Current Diagnoses Unilateral primary osteoarthritis, left knee (04/26/18) Physical Therapy Treatment Note PT-OP-A Visit Information Start: 03/03/18 08:45 Freq: Status: Active Protocol: Document 04/26/18 14:45 AMB (Rec: 04/26/18 14:58 AMB [id number]) Out-Patient Physical Therapy Visit Information Visit Information Visit Type Progress Note Visit Note G codes 05/26 Visit Start Time 14:45 Visit Stop Time 15:30 Visit Number 16 PT-OP-B Current Condition Start: 03/03/18 08:45 Freq: Status: Active Protocol: Document 03/03/18 08:45 AMB (Rec: 03/06/18 12:15 AMB [email or web address]) Current Condition History of Current Condition Onset Date 02/23/18 Current Complaints s/p L TKA History of Current Condition The patient had a left total knee arthroplasty on 02/23/18. She has been home with her (they have stairs to enter the house with a railing ). She states her pain has been under good control but she has been afraid to bend her knee much. Treatment Goals Patient/Caregiver Goals Stand and walk normally Prior Functional Status Baseline Function- ADL's Independent Baseline Function- Mobility Independent Baseline Function- Gait Pt was not using an assistive device prior to surgery Current Functional Impairments (Reported) Functional Limitations- ADL's Pt ambulating with FWW, has not showered yet, has not returned to driving Personal Factors Other Personal Factors That May Effect hypertension, R knee pain Therapy/Recovery PT-OP-C Subjective Start: 03/03/18 08:45 Freq: Status: Active Protocol: Document 04/26/18 14:45 AMB (Rec: 04/26/18 14:58 AMB [id number]) OP-PT Subjective Patient Comments Patient Comments The patient arrives 15 minutes late. Continues to have discomfort after standing and cooking for 2 hours. PT-OP-D Balance Start: 03/03/18 08:45 Freq: Status: Active Protocol: Document 03/03/18 08:45 AMB (Rec: 03/06/18 12:41 AMB [email or web address]) Balance Tests Other Other Balance Tests Performed Unable to perform single leg stance on the L. Unable to perform tandem stance. NBOS EO increases ankle sway. PT-OP-G Mobility & Gait Start: 03/03/18 08:45 Freq: Status: Active Protocol: Document 03/03/18 08:45 AMB (Rec: 03/06/18 12:40 AMB [email or web address]) OP Gait Assessment Comments Gait Comments Pt ambulates with a very stiff knee. Continued to have satinder wrap around knee. Encouraged her in knee flexion during swing and heel strike, but this was difficult. Stair Climbing Evaluation Evaluation Level of Assist On Stairs Standby Assistance Devices Stair Climbing Assistive Devices Left Railing Right Railing Technique/Endurance Stair Climbing Direction Ascend and Descend Stair Climbing Technique Step to Step Number of Steps Climbed 4 PT-OP-J Posture/Palpation/Skin Start: 03/03/18 08:45 Freq: Status: Active Protocol: Document 03/03/18 08:45 AMB (Rec: 03/06/18 12:40 AMB [email or web address]) Skin Assessment Circumference Measurement 2 Location left knee Measurement (Centimeters) 54 Comments mid patella 1 Location right knee Measurement (Centimeters) 51 Comments mid patella Incisional Assessment Incision Appearance/Comments Covered in bandage, no redness around bandage, Bruising present. PT-OP-K Range of Motion Start: 03/03/18 08:45 Freq: Status: Active Protocol: Document 04/26/18 14:45 AMB (Rec: 04/26/18 15:32 AMB [email or web address]) Knee Goniometric Range of Motion Knee Measured in Degrees Left Flexion Passive (degrees) 105 Extension Active (degrees) 3 Extension Passive (degrees) 0 PT-OP-M Strength Start: 03/03/18 08:45 Freq: Status: Active Protocol: Document 03/03/18 08:45 AMB (Rec: 03/06/18 12:40 AMB [email or web address]) Hip Strength Hip Manual Muscle Testing Right Flexion (L2) 4 Good Extension (S1) 4 Good Abduction 4 Good Left Flexion (L2) 3- Fair- Extension (S1) 3- Fair- Abduction 3+ Fair+ Knee Strength Knee Manual Muscle Testing Right Flexion (S2) 4+ Good+ Extension (L3) 4+ Good+ Left Flexion (S2) 4 Good Extension (L3) 4- Good- Ankle/Foot Strength Ankle and Foot Manual Muscle Testing Right Dorsiflexion (L4) 4+ Good+ Plantarflexion (S1) 4+ Good+ Left Dorsiflexion (L4) 4 Good Plantarflexion (S1) 4 Good PT-OP-Q Treatments Start: 03/03/18 08:45 Freq: Status: Active Protocol: Document 04/26/18 14:45 AMB (Rec: 04/26/18 15:50 AMB [email or web address]) Cardio Equipment Bicycle (Upright) Duration (Minutes) 9 Seat Position 1 Other fwd, back, then full [place] Therapeutic Exercises Supine Exercises 3 Supine Exercise Name quad stretch Comments 30x2 Standing Exercises 5 Standing Exercise Name marches to increase single leg stance Reps/Minutes 3x10 2 Standing Exercise Name sidestep squats Reps/Minutes 2x10 Comments at railing 1 Standing Exercise Name lunges Reps/Minutes 3x10 Comments at railing Manual Therapy Treatment Manual Techniques 1 Type PROM flexion and extension Other Other Manual Treatments scar massage PT-OP-R Modalities Start: 03/03/18 08:45 Freq: Status: Active Protocol: Document 04/26/18 14:45 AMB (Rec: 04/26/18 15:50 AMB [email or web address]) Hot Pack/Cold Pack Treatment Cold Pack Location knee Patient Position Hooklying Treatment Duration (minutes) 10 PT-OP-T Assessment and Plan Start: 03/03/18 08:45 Freq: Status: Active Protocol: Document 04/26/18 14:45 AMB (Rec: 04/26/18 15:50 AMB [email or web address]) Physical Therapy Assessment Goals Three Impairment gait Short Term Goal (STG) The patient will ambulate for 300' without an assistive device. STG Duration MET Vascular Physician Goal (LTG) The patient will ambulate in the community over uneven terrain (grass, gravel, hills) for 30 minutes with 2/10 knee pain or less without an assistive device. LTG Duration 8 weeks Two Impairment strength Short Term Goal (STG) The patient will show improved LE strength by performing a partial squat without UE support. STG Duration MET Vascular Physician Goal (LTG) The patient will show improved strength so she can control the descent of her body while going down stairs with step over step pattern with 1 rail. 04/26/18: not yet met LTG Duration 8 weeks One Impairment ROM Short Term Goal (STG) AROM will improve to -5 to 100 . STG Duration MET Halfway Goal (LTG) PROM will improve to 0-120 so she is able to go down stairs without compensation. 04/26/18 : not yet met LTG Duration 8 weeks Assessment Summary Assessment The patient has continued stiffness in her knee that is slowly improving. She is now ambulating without assistive device and has returned to driving and cooking. She does have discomfort in the knee with standing and walking exercises. Physical Therapy Plan Next Visit Focus/Plan Next Note Type Treatment Note Next Visit Plan Gait/ stair training for even weightbearing
--- NOTE | 2018-04-26 16:00 | PT.OPPOC ---
Current Diagnoses Unilateral primary osteoarthritis, left knee (04/26/18) Provider Visit Care Team Role Provider Type Bird Truong MD Family Provider Physician Primary Care Provider Specialty: Internal Medicine Address: [address] [place] [address], [id number] Email: Phan Walker MD Attending Provider Physician Specialty: Orthopedics Address: [address] [place] [address], [id number] Email: [email or web address] PT-OP-T Assessment and Plan Start: 03/03/18 08:45 Freq: Status: Active Protocol: Document 04/26/18 14:45 AMB (Rec: 04/26/18 15:50 AMB [email or web address]) Physical Therapy Assessment Goals Three Impairment gait Short Term Goal (STG) The patient will ambulate for 300' without an assistive device. STG Duration MET Jail Goal (LTG) The patient will ambulate in the community over uneven terrain (grass, gravel, hills) for 30 minutes with 2/10 knee pain or less without an assistive device. LTG Duration 8 weeks Two Impairment strength Short Term Goal (STG) The patient will show improved LE strength by performing a partial squat without UE support. STG Duration MET Magazine Repairer Goal (LTG) The patient will show improved strength so she can control the descent of her body while going down stairs with step over step pattern with 1 rail. 04/26/18: not yet met LTG Duration 8 weeks One Impairment ROM Short Term Goal (STG) AROM will improve to -5 to 100 . STG Duration MET Magazine Repairer Goal (LTG) PROM will improve to 0-120 so she is able to go down stairs without compensation. 04/26/18 : not yet met LTG Duration 8 weeks Assessment Summary Assessment The patient has continued stiffness in her knee that is slowly improving. She is now ambulating without assistive device and has returned to driving and cooking. She does have discomfort in the knee with standing and walking exercises. Physical Therapy Plan Frequency and Duration Frequency of Treatment 2x/Week Duration of Treatment 8 weeks Plan of Care Start Date 04/26/18 Plan of Care End Date 06/21/17 Therapeutic Interventions Therapeutic Interventions Balance Training Coordination Training Gait Training Home Exercise Program Manual Therapy Neuromuscular Re-education Self-Care/Home Management Therapeutic Activities Therapeutic Exercises Modalities Cold Pack/Ice Massage Electric Stimulation Hot Packs Next Visit Focus/Plan Next Note Type Treatment Note Next Visit Plan Gait/ stair training for even weightbearing Plan of Care Dates Plan of Care Start Date 04/26/18 Plan of Care End Date 06/21/17 Please Sign and Return: I have reviewed this Plan of Care and certify that the skilled therapy services above are required to meet the patient?s needs. Physician Signature Date Printed Name and Credentials Clinical Instructor Signature Printed Name and Credentials
--- NOTE | 2018-04-29 16:08 | PT.OTN ---
Current Diagnoses Unilateral primary osteoarthritis, left knee (04/29/18) Physical Therapy Treatment Note PT-OP-A Visit Information Start: 03/03/18 08:45 Freq: Status: Active Protocol: Document 04/29/18 14:30 AMB (Rec: 04/29/18 16:07 AMB [email or web address]) Out-Patient Physical Therapy Visit Information Visit Information Visit Type Treatment Note Visit Note G codes 06/26 Visit Start Time 14:40 Visit Stop Time 15:30 Total Visit Minutes 50 Visit Number 14 PT-OP-B Current Condition Start: 03/03/18 08:45 Freq: Status: Active Protocol: Document 03/03/18 08:45 AMB (Rec: 03/06/18 12:15 AMB [email or web address]) Current Condition History of Current Condition Onset Date 02/23/18 Current Complaints s/p L TKA History of Current Condition The patient had a left total knee arthroplasty on 02/23/18. She has been home with her (they have stairs to enter the house with a railing ). She states her pain has been under good control but she has been afraid to bend her knee much. Treatment Goals Patient/Caregiver Goals Stand and walk normally Prior Functional Status Baseline Function- ADL's Independent Baseline Function- Mobility Independent Baseline Function- Gait Pt was not using an assistive device prior to surgery Current Functional Impairments (Reported) Functional Limitations- ADL's Pt ambulating with FWW, has not showered yet, has not returned to driving Personal Factors Other Personal Factors That May Effect hypertension, R knee pain Therapy/Recovery PT-OP-C Subjective Start: 03/03/18 08:45 Freq: Status: Active Protocol: Document 04/29/18 14:30 AMB (Rec: 04/29/18 16:07 AMB [email or web address]) OP-PT Subjective Patient Comments Patient Comments Pt arrives 10 minutes late. She has been up on her feet all day today. PT-OP-D Balance Start: 03/03/18 08:45 Freq: Status: Active Protocol: Document 03/03/18 08:45 AMB (Rec: 03/06/18 12:41 AMB [email or web address]) Balance Tests Other Other Balance Tests Performed Unable to perform single leg stance on the L. Unable to perform tandem stance. NBOS EO increases ankle sway. PT-OP-G Mobility & Gait Start: 03/03/18 08:45 Freq: Status: Active Protocol: Document 03/03/18 08:45 AMB (Rec: 03/06/18 12:40 AMB [email or web address]) OP Gait Assessment Comments Gait Comments Pt ambulates with a very stiff knee. Continued to have satinder wrap around knee. Encouraged her in knee flexion during swing and heel strike, but this was difficult. Stair Climbing Evaluation Evaluation Level of Assist On Stairs Standby Assistance Devices Stair Climbing Assistive Devices Left Railing Right Railing Technique/Endurance Stair Climbing Direction Ascend and Descend Stair Climbing Technique Step to Step Number of Steps Climbed 4 PT-OP-J Posture/Palpation/Skin Start: 03/03/18 08:45 Freq: Status: Active Protocol: Document 03/03/18 08:45 AMB (Rec: 03/06/18 12:40 AMB [email or web address]) Skin Assessment Circumference Measurement 2 Location left knee Measurement (Centimeters) 54 Comments mid patella 1 Location right knee Measurement (Centimeters) 51 Comments mid patella Incisional Assessment Incision Appearance/Comments Covered in bandage, no redness around bandage, Bruising present. PT-OP-K Range of Motion Start: 03/03/18 08:45 Freq: Status: Active Protocol: Document 04/26/18 14:45 AMB (Rec: 04/26/18 15:32 AMB [email or web address]) Knee Goniometric Range of Motion Knee Measured in Degrees Left Flexion Passive (degrees) 105 Extension Active (degrees) 3 Extension Passive (degrees) 0 PT-OP-M Strength Start: 03/03/18 08:45 Freq: Status: Active Protocol: Document 03/03/18 08:45 AMB (Rec: 03/06/18 12:40 AMB [email or web address]) Hip Strength Hip Manual Muscle Testing Right Flexion (L2) 4 Good Extension (S1) 4 Good Abduction 4 Good Left Flexion (L2) 3- Fair- Extension (S1) 3- Fair- Abduction 3+ Fair+ Knee Strength Knee Manual Muscle Testing Right Flexion (S2) 4+ Good+ Extension (L3) 4+ Good+ Left Flexion (S2) 4 Good Extension (L3) 4- Good- Ankle/Foot Strength Ankle and Foot Manual Muscle Testing Right Dorsiflexion (L4) 4+ Good+ Plantarflexion (S1) 4+ Good+ Left Dorsiflexion (L4) 4 Good Plantarflexion (S1) 4 Good PT-OP-Q Treatments Start: 03/03/18 08:45 Freq: Status: Active Protocol: Document 04/29/18 14:30 AMB (Rec: 04/29/18 16:07 AMB [email or web address]) Cardio Equipment Recumbent Bicycle Duration (Minutes) 10 Seat Position 2 Therapeutic Exercises Supine Exercises 3 Supine Exercise Name quad stretch Comments 30x2 Standing Exercises 4 Standing Exercise Name hip abduction standing 3 Standing Exercise Name heel raises 2 Standing Exercise Name sidestep squats Reps/Minutes 2x10 Comments at railing 1 Standing Exercise Name lunges Reps/Minutes 3x10 Comments at railing Manual Therapy Treatment Other Other Manual Treatments scar massage PT-OP-R Modalities Start: 03/03/18 08:45 Freq: Status: Active Protocol: Document 04/29/18 14:30 AMB (Rec: 04/29/18 16:08 AMB [email or web address]) Hot Pack/Cold Pack Treatment Cold Pack Location knee Patient Position Hooklying Treatment Duration (minutes) 10 PT-OP-T Assessment and Plan Start: 03/03/18 08:45 Freq: Status: Active Protocol: Document 04/29/18 14:30 AMB (Rec: 04/29/18 16:07 AMB [email or web address]) Physical Therapy Assessment Assessment Summary Assessment Pt with extra swelling today. Reinforced swelling management. Physical Therapy Plan Frequency and Duration Frequency of Treatment 2x/Week Duration of Treatment 8 weeks Plan of Care Start Date 04/26/18 Plan of Care End Date 06/21/17 Next Visit Focus/Plan Next Note Type Treatment Note Next Visit Plan Gait/ stair training for even weightbearing
--- NOTE | 2018-05-03 16:05 | PT.OTN ---
Current Diagnoses Unilateral primary osteoarthritis, left knee (05/03/18) Physical Therapy Treatment Note PT-OP-A Visit Information Start: 03/03/18 08:45 Freq: Status: Active Protocol: Document 05/03/18 14:30 AMB (Rec: 05/03/18 14:47 AMB [id number]) Out-Patient Physical Therapy Visit Information Visit Information Visit Type Treatment Note Visit Note G codes 07/24 Visit Start Time 14:40 Visit Stop Time 15:30 Total Visit Minutes 50 Visit Number 18 PT-OP-B Current Condition Start: 03/03/18 08:45 Freq: Status: Active Protocol: Document 03/03/18 08:45 AMB (Rec: 03/06/18 12:15 AMB [email or web address]) Current Condition History of Current Condition Onset Date 02/23/18 Current Complaints s/p L TKA History of Current Condition The patient had a left total knee arthroplasty on 02/23/18. She has been home with her (they have stairs to enter the house with a railing ). She states her pain has been under good control but she has been afraid to bend her knee much. Treatment Goals Patient/Caregiver Goals Stand and walk normally Prior Functional Status Baseline Function- ADL's Independent Baseline Function- Mobility Independent Baseline Function- Gait Pt was not using an assistive device prior to surgery Current Functional Impairments (Reported) Functional Limitations- ADL's Pt ambulating with FWW, has not showered yet, has not returned to driving Personal Factors Other Personal Factors That May Effect hypertension, R knee pain Therapy/Recovery PT-OP-C Subjective Start: 03/03/18 08:45 Freq: Status: Active Protocol: Document 05/03/18 14:30 AMB (Rec: 05/03/18 14:47 AMB [id number]) OP-PT Subjective Patient Comments Patient Comments Pt arrives 10 minutes late PT-OP-D Balance Start: 03/03/18 08:45 Freq: Status: Active Protocol: Document 03/03/18 08:45 AMB (Rec: 03/06/18 12:41 AMB [email or web address]) Balance Tests Other Other Balance Tests Performed Unable to perform single leg stance on the L. Unable to perform tandem stance. NBOS EO increases ankle sway. PT-OP-G Mobility & Gait Start: 03/03/18 08:45 Freq: Status: Active Protocol: Document 03/03/18 08:45 AMB (Rec: 03/06/18 12:40 AMB [email or web address]) OP Gait Assessment Comments Gait Comments Pt ambulates with a very stiff knee. Continued to have satinder wrap around knee. Encouraged her in knee flexion during swing and heel strike, but this was difficult. Stair Climbing Evaluation Evaluation Level of Assist On Stairs Standby Assistance Devices Stair Climbing Assistive Devices Left Railing Right Railing Technique/Endurance Stair Climbing Direction Ascend and Descend Stair Climbing Technique Step to Step Number of Steps Climbed 4 PT-OP-J Posture/Palpation/Skin Start: 03/03/18 08:45 Freq: Status: Active Protocol: Document 03/03/18 08:45 AMB (Rec: 03/06/18 12:40 AMB [email or web address]) Skin Assessment Circumference Measurement 2 Location left knee Measurement (Centimeters) 54 Comments mid patella 1 Location right knee Measurement (Centimeters) 51 Comments mid patella Incisional Assessment Incision Appearance/Comments Covered in bandage, no redness around bandage, Bruising present. PT-OP-K Range of Motion Start: 03/03/18 08:45 Freq: Status: Active Protocol: Document 04/26/18 14:45 AMB (Rec: 04/26/18 15:32 AMB [email or web address]) Knee Goniometric Range of Motion Knee Measured in Degrees Left Flexion Passive (degrees) 105 Extension Active (degrees) 3 Extension Passive (degrees) 0 PT-OP-M Strength Start: 03/03/18 08:45 Freq: Status: Active Protocol: Document 03/03/18 08:45 AMB (Rec: 03/06/18 12:40 AMB [email or web address]) Hip Strength Hip Manual Muscle Testing Right Flexion (L2) 4 Good Extension (S1) 4 Good Abduction 4 Good Left Flexion (L2) 3- Fair- Extension (S1) 3- Fair- Abduction 3+ Fair+ Knee Strength Knee Manual Muscle Testing Right Flexion (S2) 4+ Good+ Extension (L3) 4+ Good+ Left Flexion (S2) 4 Good Extension (L3) 4- Good- Ankle/Foot Strength Ankle and Foot Manual Muscle Testing Right Dorsiflexion (L4) 4+ Good+ Plantarflexion (S1) 4+ Good+ Left Dorsiflexion (L4) 4 Good Plantarflexion (S1) 4 Good PT-OP-Q Treatments Start: 03/03/18 08:45 Freq: Status: Active Protocol: Document 05/03/18 14:30 AMB (Rec: 05/03/18 16:05 AMB [email or web address]) Cardio Equipment Recumbent Bicycle Duration (Minutes) 10 Seat Position 2 Therapeutic Exercises Supine Exercises 3 Supine Exercise Name quad stretch Comments 30x2 Standing Exercises 6 Standing Exercise Name single leg stance Reps/Minutes 30x2 Comments weightshift 5 Standing Exercise Name marches to increase single leg stance Reps/Minutes 3x10 4 Standing Exercise Name hip abduction standing 3 Standing Exercise Name heel raises 1 Standing Exercise Name lunges Reps/Minutes 3x10 Comments at railing Manual Therapy Treatment Manual Techniques 1 Type PROM flexion and extension Other Other Manual Treatments scar massage PT-OP-R Modalities Start: 03/03/18 08:45 Freq: Status: Active Protocol: Document 05/03/18 14:30 AMB (Rec: 05/03/18 16:05 AMB [email or web address]) Hot Pack/Cold Pack Treatment Cold Pack Location knee Patient Position Hooklying Treatment Duration (minutes) 10 PT-OP-T Assessment and Plan Start: 03/03/18 08:45 Freq: Status: Active Protocol: Document 05/03/18 14:30 AMB (Rec: 05/03/18 16:05 AMB [email or web address]) Physical Therapy Assessment Goals Three Impairment gait Short Term Goal (STG) The patient will ambulate for 300' without an assistive device. STG Duration MET Audio Visual Facilities Engineer Goal (LTG) The patient will ambulate in the community over uneven terrain (grass, gravel, hills) for 30 minutes with 2/10 knee pain or less without an assistive device. LTG Duration 8 weeks Two Impairment strength Short Term Goal (STG) The patient will show improved LE strength by performing a partial squat without UE support. STG Duration MET Audio Visual Facilities Engineer Goal (LTG) The patient will show improved strength so she can control the descent of her body while going down stairs with step over step pattern with 1 rail. 04/26/18: not yet met LTG Duration 8 weeks One Impairment ROM Short Term Goal (STG) AROM will improve to -5 to 100 . STG Duration MET Longterm Goal (LTG) PROM will improve to 0-120 so she is able to go down stairs without compensation. 04/26/18 : not yet met LTG Duration 8 weeks Assessment Summary Assessment Pt continues to limp due to stiffness, reinforced frequent movement. Physical Therapy Plan Frequency and Duration Frequency of Treatment 2x/Week Duration of Treatment 8 weeks Plan of Care Start Date 04/26/18 Plan of Care End Date 06/21/17 Next Visit Focus/Plan Next Note Type Treatment Note Next Visit Plan Dynamic stabilization, balance training
--- NOTE | 2018-05-06 15:46 | PT.OTN ---
Current Diagnoses Unilateral primary osteoarthritis, left knee (05/06/18) Physical Therapy Treatment Note PT-OP-A Visit Information Start: 03/03/18 08:45 Freq: Status: Active Protocol: Document 05/06/18 13:00 AMB (Rec: 05/06/18 13:12 AMB [id number]) Out-Patient Physical Therapy Visit Information Visit Information Visit Type Treatment Note Visit Note G code 08/24 Visit Start Time 13:00 Visit Stop Time 13:50 Total Visit Minutes 50 Visit Number 19 PT-OP-B Current Condition Start: 03/03/18 08:45 Freq: Status: Active Protocol: Document 03/03/18 08:45 AMB (Rec: 03/06/18 12:15 AMB [email or web address]) Current Condition History of Current Condition Onset Date 02/23/18 Current Complaints s/p L TKA History of Current Condition The patient had a left total knee arthroplasty on 02/23/18. She has been home with her (they have stairs to enter the house with a railing ). She states her pain has been under good control but she has been afraid to bend her knee much. Treatment Goals Patient/Caregiver Goals Stand and walk normally Prior Functional Status Baseline Function- ADL's Independent Baseline Function- Mobility Independent Baseline Function- Gait Pt was not using an assistive device prior to surgery Current Functional Impairments (Reported) Functional Limitations- ADL's Pt ambulating with FWW, has not showered yet, has not returned to driving Personal Factors Other Personal Factors That May Effect hypertension, R knee pain Therapy/Recovery PT-OP-C Subjective Start: 03/03/18 08:45 Freq: Status: Active Protocol: Document 05/06/18 13:00 AMB (Rec: 05/06/18 13:12 AMB [id number]) OP-PT Subjective Patient Comments Patient Comments Pt is sore in her knee today. PT-OP-D Balance Start: 03/03/18 08:45 Freq: Status: Active Protocol: Document 03/03/18 08:45 AMB (Rec: 03/06/18 12:41 AMB [email or web address]) Balance Tests Other Other Balance Tests Performed Unable to perform single leg stance on the L. Unable to perform tandem stance. NBOS EO increases ankle sway. PT-OP-G Mobility & Gait Start: 03/03/18 08:45 Freq: Status: Active Protocol: Document 03/03/18 08:45 AMB (Rec: 03/06/18 12:40 AMB [email or web address]) OP Gait Assessment Comments Gait Comments Pt ambulates with a very stiff knee. Continued to have satinder wrap around knee. Encouraged her in knee flexion during swing and heel strike, but this was difficult. Stair Climbing Evaluation Evaluation Level of Assist On Stairs Standby Assistance Devices Stair Climbing Assistive Devices Left Railing Right Railing Technique/Endurance Stair Climbing Direction Ascend and Descend Stair Climbing Technique Step to Step Number of Steps Climbed 4 PT-OP-J Posture/Palpation/Skin Start: 03/03/18 08:45 Freq: Status: Active Protocol: Document 03/03/18 08:45 AMB (Rec: 03/06/18 12:40 AMB [email or web address]) Skin Assessment Circumference Measurement 2 Location left knee Measurement (Centimeters) 54 Comments mid patella 1 Location right knee Measurement (Centimeters) 51 Comments mid patella Incisional Assessment Incision Appearance/Comments Covered in bandage, no redness around bandage, Bruising present. PT-OP-K Range of Motion Start: 03/03/18 08:45 Freq: Status: Active Protocol: Document 04/26/18 14:45 AMB (Rec: 04/26/18 15:32 AMB [email or web address]) Knee Goniometric Range of Motion Knee Measured in Degrees Left Flexion Passive (degrees) 105 Extension Active (degrees) 3 Extension Passive (degrees) 0 PT-OP-M Strength Start: 03/03/18 08:45 Freq: Status: Active Protocol: Document 03/03/18 08:45 AMB (Rec: 03/06/18 12:40 AMB [email or web address]) Hip Strength Hip Manual Muscle Testing Right Flexion (L2) 4 Good Extension (S1) 4 Good Abduction 4 Good Left Flexion (L2) 3- Fair- Extension (S1) 3- Fair- Abduction 3+ Fair+ Knee Strength Knee Manual Muscle Testing Right Flexion (S2) 4+ Good+ Extension (L3) 4+ Good+ Left Flexion (S2) 4 Good Extension (L3) 4- Good- Ankle/Foot Strength Ankle and Foot Manual Muscle Testing Right Dorsiflexion (L4) 4+ Good+ Plantarflexion (S1) 4+ Good+ Left Dorsiflexion (L4) 4 Good Plantarflexion (S1) 4 Good PT-OP-Q Treatments Start: 03/03/18 08:45 Freq: Status: Active Protocol: Document 05/06/18 13:00 AMB (Rec: 05/06/18 15:45 AMB [email or web address]) Cardio Equipment Recumbent Stepper (Sci-Fit) Duration (Minutes) 8 Resistance 4 Therapeutic Exercises Supine Exercises 3 Supine Exercise Name quad stretch Comments 30x2 Standing Exercises 6 Standing Exercise Name single leg stance Reps/Minutes 30x2 Comments weightshift 5 Standing Exercise Name step up 6 Reps/Minutes 2x10 4 Standing Exercise Name hip abduction standing Reps/Minutes 10 3 Standing Exercise Name heel raises Reps/Minutes 2x10 2 Standing Exercise Name sidestep squats Reps/Minutes 2x10 Comments at railing 1 Standing Exercise Name lunges Reps/Minutes 3x10 Comments at railing Manual Therapy Treatment Soft Tissue Mobilization 1 Body Location quad Mobilization Type Myofascial Release Manual Techniques 1 Type PROM flexion and extension PT-OP-R Modalities Start: 03/03/18 08:45 Freq: Status: Active Protocol: Document 05/06/18 13:00 AMB (Rec: 05/06/18 15:46 AMB [email or web address]) Hot Pack/Cold Pack Treatment Cold Pack Location knee Patient Position Hooklying Treatment Duration (minutes) 10 PT-OP-T Assessment and Plan Start: 03/03/18 08:45 Freq: Status: Active Protocol: Document 05/06/18 13:00 AMB (Rec: 05/06/18 15:45 AMB [email or web address]) Physical Therapy Assessment Assessment Summary Assessment Pt continues to have difficulty with stairs. Physical Therapy Plan Next Visit Focus/Plan Next Note Type Treatment Note Next Visit Plan Dynamic stabilization, balance training
--- NOTE | 2018-05-19 13:09 | PT.OTN ---
Current Diagnoses Unilateral primary osteoarthritis, left knee (05/19/18) Physical Therapy Treatment Note PT-OP-A Visit Information Start: 03/03/18 08:45 Freq: Status: Active Protocol: Document 05/19/18 11:15 AMB (Rec: 05/19/18 13:07 AMB [email or web address]) Out-Patient Physical Therapy Visit Information Visit Information Visit Type Treatment Note Visit Note G code 09/23 Visit Start Time 11:15 Visit Stop Time 12:00 Total Visit Minutes 50 Visit Number 20 PT-OP-B Current Condition Start: 03/03/18 08:45 Freq: Status: Active Protocol: Document 03/03/18 08:45 AMB (Rec: 03/06/18 12:15 AMB [email or web address]) Current Condition History of Current Condition Onset Date 02/23/18 Current Complaints s/p L TKA History of Current Condition The patient had a left total knee arthroplasty on 02/23/18. She has been home with her (they have stairs to enter the house with a railing ). She states her pain has been under good control but she has been afraid to bend her knee much. Treatment Goals Patient/Caregiver Goals Stand and walk normally Prior Functional Status Baseline Function- ADL's Independent Baseline Function- Mobility Independent Baseline Function- Gait Pt was not using an assistive device prior to surgery Current Functional Impairments (Reported) Functional Limitations- ADL's Pt ambulating with FWW, has not showered yet, has not returned to driving Personal Factors Other Personal Factors That May Effect hypertension, R knee pain Therapy/Recovery PT-OP-C Subjective Start: 03/03/18 08:45 Freq: Status: Active Protocol: Document 05/19/18 11:15 AMB (Rec: 05/19/18 13:07 AMB [email or web address]) OP-PT Subjective Patient Comments Patient Comments Pt reports her other ankle is a bit sore today. Her goals for continued PT are to be able to walk further without pain. PT-OP-D Balance Start: 03/03/18 08:45 Freq: Status: Active Protocol: Document 03/03/18 08:45 AMB (Rec: 03/06/18 12:41 AMB [email or web address]) Balance Tests Other Other Balance Tests Performed Unable to perform single leg stance on the L. Unable to perform tandem stance. NBOS EO increases ankle sway. PT-OP-G Mobility & Gait Start: 03/03/18 08:45 Freq: Status: Active Protocol: Document 03/03/18 08:45 AMB (Rec: 03/06/18 12:40 AMB [email or web address]) OP Gait Assessment Comments Gait Comments Pt ambulates with a very stiff knee. Continued to have satinder wrap around knee. Encouraged her in knee flexion during swing and heel strike, but this was difficult. Stair Climbing Evaluation Evaluation Level of Assist On Stairs Standby Assistance Devices Stair Climbing Assistive Devices Left Railing Right Railing Technique/Endurance Stair Climbing Direction Ascend and Descend Stair Climbing Technique Step to Step Number of Steps Climbed 4 PT-OP-J Posture/Palpation/Skin Start: 03/03/18 08:45 Freq: Status: Active Protocol: Document 03/03/18 08:45 AMB (Rec: 03/06/18 12:40 AMB [email or web address]) Skin Assessment Circumference Measurement 2 Location left knee Measurement (Centimeters) 54 Comments mid patella 1 Location right knee Measurement (Centimeters) 51 Comments mid patella Incisional Assessment Incision Appearance/Comments Covered in bandage, no redness around bandage, Bruising present. PT-OP-K Range of Motion Start: 03/03/18 08:45 Freq: Status: Active Protocol: Document 04/26/18 14:45 AMB (Rec: 04/26/18 15:32 AMB [email or web address]) Knee Goniometric Range of Motion Knee Measured in Degrees Left Flexion Passive (degrees) 105 Extension Active (degrees) 3 Extension Passive (degrees) 0 PT-OP-M Strength Start: 03/03/18 08:45 Freq: Status: Active Protocol: Document 03/03/18 08:45 AMB (Rec: 03/06/18 12:40 AMB [email or web address]) Hip Strength Hip Manual Muscle Testing Right Flexion (L2) 4 Good Extension (S1) 4 Good Abduction 4 Good Left Flexion (L2) 3- Fair- Extension (S1) 3- Fair- Abduction 3+ Fair+ Knee Strength Knee Manual Muscle Testing Right Flexion (S2) 4+ Good+ Extension (L3) 4+ Good+ Left Flexion (S2) 4 Good Extension (L3) 4- Good- Ankle/Foot Strength Ankle and Foot Manual Muscle Testing Right Dorsiflexion (L4) 4+ Good+ Plantarflexion (S1) 4+ Good+ Left Dorsiflexion (L4) 4 Good Plantarflexion (S1) 4 Good PT-OP-Q Treatments Start: 03/03/18 08:45 Freq: Status: Active Protocol: Document 05/19/18 11:15 AMB (Rec: 05/19/18 13:07 AMB [email or web address]) Cardio Equipment Recumbent Bicycle Duration (Minutes) 6 Resistance 5 Seat Position 2 Therapeutic Exercises Supine Exercises 3 Supine Exercise Name quad stretch Comments 30x2 Standing Exercises 6 Standing Exercise Name single leg stance Reps/Minutes 30x2 Comments weightshift 5 Standing Exercise Name step up 6 Reps/Minutes 2x10 1 Standing Exercise Name lunges Reps/Minutes 3x10 Comments at railing Other Exercises 1 Other Exercise Name quadruped tolerance Manual Therapy Treatment Soft Tissue Mobilization 1 Body Location quad Mobilization Type Myofascial Release Manual Techniques 1 Type PROM flexion and extension Other Other Manual Treatments scar massage PT-OP-R Modalities Start: 03/03/18 08:45 Freq: Status: Active Protocol: Document 05/19/18 11:15 AMB (Rec: 05/19/18 13:07 AMB [email or web address]) Hot Pack/Cold Pack Treatment Cold Pack Location knee Patient Position Hooklying Treatment Duration (minutes) 10 PT-OP-T Assessment and Plan Start: 03/03/18 08:45 Freq: Status: Active Protocol: Document 05/19/18 11:15 AMB (Rec: 05/19/18 13:07 AMB [email or web address]) Physical Therapy Assessment Assessment Summary Assessment Today the right knee, leg was limiting squats and lunges more than the left. Limited flexion continues to make descending stairs difficult. Pt was nervous about kneeling, but should be able to do a floor transfer soon. Physical Therapy Plan Next Visit Focus/Plan Next Note Type Treatment Note Next Visit Plan Dynamic stabilization, balance training
--- NOTE | 2018-06-03 09:38 | PT.OTN ---
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), right foot (06/03/18) Posterior tibial tendinitis, right leg (06/03/18) Physical Therapy Treatment Note PT-OP-A Visit Information Start: 03/03/18 08:45 Freq: Status: Active Protocol: Document 06/03/18 11:15 AMB (Rec: 06/05/18 10:57 AMB [email or web address]) Out-Patient Physical Therapy Visit Information Visit Information Visit Type Re-Evaluation Visit Note 1 Visit Start Time 11:15 Visit Stop Time 12:00 Total Visit Minutes 45 Visit Number 21 PT-OP-B Current Condition Start: 03/03/18 08:45 Freq: Status: Active Protocol: Document 03/03/18 08:45 AMB (Rec: 03/06/18 12:15 AMB [email or web address]) Current Condition History of Current Condition Onset Date 02/23/18 Current Complaints s/p L TKA History of Current Condition The patient had a left total knee arthroplasty on 02/23/18. She has been home with her (they have stairs to enter the house with a railing ). She states her pain has been under good control but she has been afraid to bend her knee much. Treatment Goals Patient/Caregiver Goals Stand and walk normally Prior Functional Status Baseline Function- ADL's Independent Baseline Function- Mobility Independent Baseline Function- Gait Pt was not using an assistive device prior to surgery Current Functional Impairments (Reported) Functional Limitations- ADL's Pt ambulating with FWW, has not showered yet, has not returned to driving Personal Factors Other Personal Factors That May Effect hypertension, R knee pain Therapy/Recovery PT-OP-C Subjective Start: 03/03/18 08:45 Freq: Status: Active Protocol: Document 06/03/18 11:15 AMB (Rec: 06/05/18 10:57 AMB [email or web address]) OP-PT Subjective Patient Comments Patient Comments Debora attends PT with a new prescription for 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 OP-PT Pain Assessment Location Right Ankle Intensity 5 Scale Used Numeric (1 - 10) PT-OP-D Balance Start: 03/03/18 08:45 Freq: Status: Active Protocol: Document 03/03/18 08:45 AMB (Rec: 03/06/18 12:41 AMB [email or web address]) Balance Tests Other Other Balance Tests Performed Unable to perform single leg stance on the L. Unable to perform tandem stance. NBOS EO increases ankle sway. PT-OP-G Mobility & Gait Start: 03/03/18 08:45 Freq: Status: Active Protocol: Document 06/03/18 11:15 AMB (Rec: 06/06/18 09:16 AMB [email or web address]) OP Gait Assessment Comments Gait Comments Pt notes new onset feeling that she is not lifting her feet not tripping over her toes but has been noticing more scuffing on the toes of her shoes. PT-OP-J Posture/Palpation/Skin Start: 03/03/18 08:45 Freq: Status: Active Protocol: Document 06/03/18 11:15 AMB (Rec: 06/06/18 09:16 AMB [email or web address]) Palpation Assessment Location One Palpation Location R foot Palpation Findings Edema Palpation Details Tenderness with palpation at medial ankle and into arch PT-OP-K Range of Motion Start: 03/03/18 08:45 Freq: Status: Active Protocol: Document 06/03/18 11:15 AMB (Rec: 06/05/18 11:00 AMB [email or web address]) Ankle and Foot Goniometric Range of Motion Ankle and Foot Measured in Degrees Right Passive Testing Position Supine Dorsiflexion with Knee Extended 10 Plantarflexion 50 Inversion 25 Eversion 25 Left Passive Testing Position Supine Dorsiflexion with Knee Extended 5 Plantarflexion 50 Inversion 20 Eversion 20 PT-OP-M Strength Start: 03/03/18 08:45 Freq: Status: Active Protocol: Document 06/03/18 11:15 AMB (Rec: 06/05/18 11:00 AMB [email or web address]) Ankle/Foot Strength Ankle and Foot Manual Muscle Testing Right Dorsiflexion (L4) 5 Normal Plantarflexion (S1) 4 Good Inversion 3+ Fair+ Eversion (S1) 4 Good Left Dorsiflexion (L4) 4 Good Plantarflexion (S1) 4 Good Inversion 4+ Good+ Eversion (S1) 4+ Good+ PT-OP-Q Treatments Start: 03/03/18 08:45 Freq: Status: Active Protocol: Document 06/03/18 11:15 AMB (Rec: 06/06/18 08:14 AMB [email or web address]) Cardio Equipment Recumbent Bicycle Duration (Minutes) 6 Resistance 5 Seat Position 2 Therapeutic Exercises Sitting Exercises 3 Sitting Exercise Name calf stretch Reps/Minutes 30x2 2 Sitting Exercise Name foot inversion/eversion Comments AROM Manual Therapy Treatment Soft Tissue Mobilization 2 Body Location ankles Comments L tibialis ant. R posterior tibial insertion PT-OP-R Modalities Start: 03/03/18 08:45 Freq: Status: Active Protocol: Document 06/03/18 11:15 AMB (Rec: 06/06/18 09:10 AMB [email or web address]) Hot Pack/Cold Pack Treatment Ice Massage Location R ankle Treatment Duration (minutes) 5 Cold Pack Location R ankle Treatment Duration (minutes) 10 PT-OP-T Assessment and Plan Start: 03/03/18 08:45 Freq: Status: Active Protocol: Document 06/03/18 11:15 AMB (Rec: 06/06/18 09:33 AMB [email or web address]) Physical Therapy Assessment Goals Five Impairment Ankle strength Short Term Goal (STG) The patient will perform 10 heel raises without ankle pain . STG Duration 4 weeks Drugless Physician Goal (LTG) The patient will improve her ankle strength in all planes to 4+/5. Four Impairment ankle pain Short Term Goal (STG) The patient will ambulate without assistive device for 10 mintues with 3/10 ankle pain or less. STG Duration 4 weeks Halfway Goal (LTG) The patient will Three Impairment gait Short Term Goal (STG) The patient will ambulate for 300' without an assistive device. STG Duration MET Drugless Physician Goal (LTG) The patient will ambulate in the community over uneven terrain (grass, gravel, hills) for 30 minutes with 2/10 knee pain or less without an assistive device. LTG Duration 8 weeks Two Impairment strength Short Term Goal (STG) The patient will show improved LE strength by performing a partial squat without UE support. STG Duration MET Halfway Goal (LTG) The patient will show improved strength so she can control the descent of her body while going down stairs with step over step pattern with 1 rail. 04/26/18: not yet met LTG Duration 8 weeks One Impairment ROM Short Term Goal (STG) AROM will improve to -5 to 100 . STG Duration MET Drugless Physician Goal (LTG) PROM will improve to 0-120 so she is able to go down stairs without compensation. 04/26/18 : not yet met LTG Duration 8 weeks Assessment Summary Assessment Debora attends physical therapy with a new prescription for right posterior tibialis pain. Her gait continues to be dysfunctional, and she admits she has been limping long before her knee replacement. We will continue to progress her knee ROM and gait, but also progress her ankle stability so that she can ambulate without pain. Physical Therapy Plan Frequency and Duration Frequency of Treatment 2x/Week Duration of Treatment 6 weeks Plan of Care Start Date 06/03/18 Plan of Care End Date 07/15/18 Therapeutic Interventions Therapeutic Interventions Balance Training Coordination Training Gait Training Home Exercise Program Manual Therapy Neuromuscular Re-education Self-Care/Home Management Therapeutic Activities Therapeutic Exercises Modalities Cold Pack/Ice Massage Electric Stimulation Hot Packs Iontophoresis Other Therapeutic Interventions iontophoresis with dexamethasone Next Visit Focus/Plan Next Note Type Treatment Note Next Visit Plan Dynamic stabilization, balance training
--- NOTE | 2018-06-06 09:37 | PT.OTRE ---
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), right foot (06/03/18) Posterior tibial tendinitis, right leg (06/03/18) Past Medical History (Last Updated 02/09/18 @ 10:22 by Sulema Menezes RN) Atrial fibrillation (Acute) Bilateral knee pain (Acute) Bronchitis (Acute) Chronic right shoulder pain (Acute) Diverticulosis (Acute) Easy bruisability (Acute) Edema (Acute) Fatty liver (Acute) Gallstone (Acute) HTN (hypertension) (Acute) Hip bursitis, left (Acute) Neck pain (Acute) Numbness (Acute) Osteoarthritis (Acute) Plantar fasciitis of right foot (Acute) Pneumonia (Acute) Sleep apnea with use of continuous positive airway pressure (CPAP) (Acute) Surgical History (Last Updated 02/09/18 @ 10:22 by Sulema Menezes RN) History of bilateral tubal ligation (Acute) History of section (Acute) Hx of bilateral cataract extraction (Acute) Hx of tonsillectomy (Acute) Provider Visit Care Team Role Provider Type Bird Truong MD Family Provider Physician Primary Care Provider Specialty: Internal Medicine Address: [address] [place] [address] Email: Phan Walker MD Attending Provider Physician Specialty: Orthopedic Surgery Address: [address] [place], [place] [phone] Email: [email or web address] Cydney Meyers Physician Specialty: Podiatry Address: [address] [place], [place] [phone] Email: [email or web address] Physical Therapy Re-Evaluation PT-OP-A Visit Information Start: 03/03/18 08:45 Freq: Status: Active Protocol: Document 06/03/18 11:15 AMB (Rec: 06/05/18 10:57 AMB [email or web address]) Out-Patient Physical Therapy Visit Information Visit Information Visit Type Re-Evaluation Visit Note 1 Visit Start Time 11:15 Visit Stop Time 12:00 Total Visit Minutes 45 Visit Number 21 PT-OP-B Current Condition Start: 03/03/18 08:45 Freq: Status: Active Protocol: Document 03/03/18 08:45 AMB (Rec: 03/06/18 12:15 AMB [email or web address]) Current Condition History of Current Condition Onset Date 02/23/18 Current Complaints s/p L TKA History of Current Condition The patient had a left total knee arthroplasty on 02/23/18. She has been home with her (they have stairs to enter the house with a railing ). She states her pain has been under good control but she has been afraid to bend her knee much. Treatment Goals Patient/Caregiver Goals Stand and walk normally Prior Functional Status Baseline Function- ADL's Independent Baseline Function- Mobility Independent Baseline Function- Gait Pt was not using an assistive device prior to surgery Current Functional Impairments (Reported) Functional Limitations- ADL's Pt ambulating with FWW, has not showered yet, has not returned to driving Personal Factors Other Personal Factors That May Effect hypertension, R knee pain Therapy/Recovery PT-OP-C Subjective Start: 03/03/18 08:45 Freq: Status: Active Protocol: Document 06/03/18 11:15 AMB (Rec: 06/05/18 10:57 AMB [email or web address]) OP-PT Subjective Patient Comments Patient Comments Debora attends PT with a 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 OP-PT Pain Assessment Location Right Ankle Intensity 5 Scale Used Numeric (1 - 10) PT-OP-D Balance Start: 03/03/18 08:45 Freq: Status: Active Protocol: Document 03/03/18 08:45 AMB (Rec: 03/06/18 12:41 AMB [email or web address]) Balance Tests Other Other Balance Tests Performed Unable to perform single leg stance on the L. Unable to perform tandem stance. NBOS EO increases ankle sway. PT-OP-G Mobility & Gait Start: 03/03/18 08:45 Freq: Status: Active Protocol: Document 06/03/18 11:15 AMB (Rec: 06/06/18 09:16 AMB [email or web address]) OP Gait Assessment Comments Gait Comments Pt notes new onset feeling that she is not lifting her feet not tripping over her toes but has been noticing more scuffing on the toes of her shoes. PT-OP-J Posture/Palpation/Skin Start: 03/03/18 08:45 Freq: Status: Active Protocol: Document 06/03/18 11:15 AMB (Rec: 06/06/18 09:16 AMB [email or web address]) Palpation Assessment Location One Palpation Location R foot Palpation Findings Edema Palpation Details Tenderness with palpation at medial ankle and into arch PT-OP-K Range of Motion Start: 03/03/18 08:45 Freq: Status: Active Protocol: Document 06/03/18 11:15 AMB (Rec: 06/05/18 11:00 AMB [email or web address]) Ankle and Foot Goniometric Range of Motion Ankle and Foot Measured in Degrees Right Passive Testing Position Supine Dorsiflexion with Knee Extended 10 Plantarflexion 50 Inversion 25 Eversion 25 Left Passive Testing Position Supine Dorsiflexion with Knee Extended 5 Plantarflexion 50 Inversion 20 Eversion 20 PT-OP-M Strength Start: 03/03/18 08:45 Freq: Status: Active Protocol: Document 06/03/18 11:15 AMB (Rec: 06/05/18 11:00 AMB [email or web address]) Ankle/Foot Strength Ankle and Foot Manual Muscle Testing Right Dorsiflexion (L4) 5 Normal Plantarflexion (S1) 4 Good Inversion 3+ Fair+ Eversion (S1) 4 Good Left Dorsiflexion (L4) 4 Good Plantarflexion (S1) 4 Good Inversion 4+ Good+ Eversion (S1) 4+ Good+ PT-OP-Q Treatments Start: 03/03/18 08:45 Freq: Status: Active Protocol: Document 06/03/18 11:15 AMB (Rec: 06/06/18 08:14 AMB [email or web address]) Cardio Equipment Recumbent Bicycle Duration (Minutes) 6 Resistance 5 Seat Position 2 Therapeutic Exercises Sitting Exercises 3 Sitting Exercise Name calf stretch Reps/Minutes 30x2 2 Sitting Exercise Name foot inversion/eversion Comments AROM Manual Therapy Treatment Soft Tissue Mobilization 2 Body Location ankles Comments L tibialis ant. R posterior tibial insertion PT-OP-R Modalities Start: 03/03/18 08:45 Freq: Status: Active Protocol: Document 06/03/18 11:15 AMB (Rec: 06/06/18 09:10 AMB [email or web address]) Hot Pack/Cold Pack Treatment Ice Massage Location R ankle Treatment Duration (minutes) 5 Cold Pack Location R ankle Treatment Duration (minutes) 10 PT-OP-T Assessment and Plan Start: 03/03/18 08:45 Freq: Status: Active Protocol: Document 06/03/18 11:15 AMB (Rec: 06/06/18 09:33 AMB [email or web address]) Physical Therapy Assessment Goals Five Impairment Ankle strength Short Term Goal (STG) The patient will perform 10 heel raises without ankle pain . STG Duration 4 weeks Tv Production Assistant Goal (LTG) The patient will improve her ankle strength in all planes to 4+/5. Four Impairment ankle pain Short Term Goal (STG) The patient will ambulate without assistive device for 10 mintues with 3/10 ankle pain or less. STG Duration 4 weeks Intermediate Goal (LTG) The patient will Three Impairment gait Short Term Goal (STG) The patient will ambulate for 300' without an assistive device. STG Duration MET Tv Production Assistant Goal (LTG) The patient will ambulate in the community over uneven terrain (grass, gravel, hills) for 30 minutes with 2/10 knee pain or less without an assistive device. LTG Duration 8 weeks Two Impairment strength Short Term Goal (STG) The patient will show improved LE strength by performing a partial squat without UE support. STG Duration MET Tv Production Assistant Goal (LTG) The patient will show improved strength so she can control the descent of her body while going down stairs with step over step pattern with 1 rail. 04/26/18: not yet met LTG Duration 8 weeks One Impairment ROM Short Term Goal (STG) AROM will improve to -5 to 100 . STG Duration MET Tv Production Assistant Goal (LTG) PROM will improve to 0-120 so she is able to go down stairs without compensation. 04/26/18 : not yet met LTG Duration 8 weeks Assessment Summary Assessment Debora attends physical therapy with a new prescription for right posterior tibialis pain. Her gait continues to be dysfunctional, and she admits she has been limping long before her knee replacement. We will continue to progress her knee ROM and gait, but also progress her ankle stability so that she can ambulate without pain. Physical Therapy Plan Frequency and Duration Frequency of Treatment 2x/Week Duration of Treatment 6 weeks Plan of Care Start Date 06/03/18 Plan of Care End Date 07/15/18 Therapeutic Interventions Therapeutic Interventions Balance Training Coordination Training Gait Training Home Exercise Program Manual Therapy Neuromuscular Re-education Self-Care/Home Management Therapeutic Activities Therapeutic Exercises Modalities Cold Pack/Ice Massage Electric Stimulation Hot Packs Iontophoresis Other Therapeutic Interventions iontophoresis with dexamethasone Next Visit Focus/Plan Next Note Type Treatment Note Next Visit Plan Dynamic stabilization, balance training
--- NOTE | 2018-06-06 09:38 | PT.OPPOC ---
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), right foot (06/03/18) Posterior tibial tendinitis, right leg (06/03/18) Provider Visit Care Team Role Provider Type Bird Truong MD Family Provider Physician Primary Care Provider Specialty: Internal Medicine Address: [address] [place] [address], [id number] Email: Phan Walker MD Attending Provider Physician Specialty: Orthopedic Surgery Address: [address] [place], [place] [phone] Email: [email or web address] Cydney Meyers Physician Specialty: Podiatry Address: [address] [place], [place] [phone] Email: [email or web address] Plan Of Care PT-OP-T Assessment and Plan Start: 03/03/18 08:45 Freq: Status: Active Protocol: Document 06/03/18 11:15 AMB (Rec: 06/06/18 09:33 AMB [email or web address]) Physical Therapy Assessment Goals Five Impairment Ankle strength Short Term Goal (STG) The patient will perform 10 heel raises without ankle pain . STG Duration 4 weeks Abrasive Wheel Molder Goal (LTG) The patient will improve her ankle strength in all planes to 4+/5. Four Impairment ankle pain Short Term Goal (STG) The patient will ambulate without assistive device for 10 mintues with 3/10 ankle pain or less. STG Duration 4 weeks Jail Goal (LTG) The patient will Three Impairment gait Short Term Goal (STG) The patient will ambulate for 300' without an assistive device. STG Duration MET Jail Goal (LTG) The patient will ambulate in the community over uneven terrain (grass, gravel, hills) for 30 minutes with 2/10 knee pain or less without an assistive device. LTG Duration 8 weeks Two Impairment strength Short Term Goal (STG) The patient will show improved LE strength by performing a partial squat without UE support. STG Duration MET Jail Goal (LTG) The patient will show improved strength so she can control the descent of her body while going down stairs with step over step pattern with 1 rail. 04/26/18: not yet met LTG Duration 8 weeks One Impairment ROM Short Term Goal (STG) AROM will improve to -5 to 100 . STG Duration MET Abrasive Wheel Molder Goal (LTG) PROM will improve to 0-120 so she is able to go down stairs without compensation. 04/26/18 : not yet met LTG Duration 8 weeks Assessment Summary Assessment Debora attends physical therapy with a new prescription for right posterior tibialis pain. Her gait continues to be dysfunctional, and she admits she has been limping long before her knee replacement. We will continue to progress her knee ROM and gait, but also progress her ankle stability so that she can ambulate without pain. Physical Therapy Plan Frequency and Duration Frequency of Treatment 2x/Week Duration of Treatment 6 weeks Plan of Care Start Date 06/03/18 Plan of Care End Date 07/15/18 Therapeutic Interventions Therapeutic Interventions Balance Training Coordination Training Gait Training Home Exercise Program Manual Therapy Neuromuscular Re-education Self-Care/Home Management Therapeutic Activities Therapeutic Exercises Modalities Cold Pack/Ice Massage Electric Stimulation Hot Packs Iontophoresis Other Therapeutic Interventions iontophoresis with dexamethasone Next Visit Focus/Plan Next Note Type Treatment Note Next Visit Plan Dynamic stabilization, balance training Plan of Care Dates Plan of Care Start Date 06/03/18 Plan of Care End Date 07/15/18 Please Sign and Return: I have reviewed this Plan of Care and certify that the skilled therapy services above are required to meet the patient?s needs. Physician Signature Date Printed Name and Credentials Clinical Instructor Signature Printed Name and Credentials
--- NOTE | 2018-06-10 16:37 | PT.OTN ---
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), right foot (06/10/18) Posterior tibial tendinitis, right leg (06/10/18) Physical Therapy Treatment Note PT-OP-A Visit Information Start: 03/03/18 08:45 Freq: Status: Active Protocol: Document 06/10/18 11:15 AMB (Rec: 06/10/18 16:32 AMB [email or web address]) Out-Patient Physical Therapy Visit Information Visit Information Visit Type Treatment Note Visit Note 2 Visit Start Time 11:15 Visit Stop Time 12:00 Total Visit Minutes 45 Visit Number 22 PT-OP-B Current Condition Start: 03/03/18 08:45 Freq: Status: Active Protocol: Document 03/03/18 08:45 AMB (Rec: 03/06/18 12:15 AMB [email or web address]) Current Condition History of Current Condition Onset Date 02/23/18 Current Complaints s/p L TKA History of Current Condition The patient had a left total knee arthroplasty on 02/23/18. She has been home with her (they have stairs to enter the house with a railing ). She states her pain has been under good control but she has been afraid to bend her knee much. Treatment Goals Patient/Caregiver Goals Stand and walk normally Prior Functional Status Baseline Function- ADL's Independent Baseline Function- Mobility Independent Baseline Function- Gait Pt was not using an assistive device prior to surgery Current Functional Impairments (Reported) Functional Limitations- ADL's Pt ambulating with FWW, has not showered yet, has not returned to driving Personal Factors Other Personal Factors That May Effect hypertension, R knee pain Therapy/Recovery PT-OP-C Subjective Start: 03/03/18 08:45 Freq: Status: Active Protocol: Document 06/10/18 11:15 AMB (Rec: 06/10/18 16:32 AMB [email or web address]) OP-PT Subjective Patient Comments Patient Comments niranjan reports ankle pain is the most limiting to her mobility currently, rates pain about 5/10 PT-OP-D Balance Start: 03/03/18 08:45 Freq: Status: Active Protocol: Document 03/03/18 08:45 AMB (Rec: 03/06/18 12:41 AMB [email or web address]) Balance Tests Other Other Balance Tests Performed Unable to perform single leg stance on the L. Unable to perform tandem stance. NBOS EO increases ankle sway. PT-OP-G Mobility & Gait Start: 03/03/18 08:45 Freq: Status: Active Protocol: Document 06/03/18 11:15 AMB (Rec: 06/06/18 09:16 AMB [email or web address]) OP Gait Assessment Comments Gait Comments Pt notes new onset feeling that she is not lifting her feet not tripping over her toes but has been noticing more scuffing on the toes of her shoes. PT-OP-J Posture/Palpation/Skin Start: 03/03/18 08:45 Freq: Status: Active Protocol: Document 06/03/18 11:15 AMB (Rec: 06/06/18 09:16 AMB [email or web address]) Palpation Assessment Location One Palpation Location R foot Palpation Findings Edema Palpation Details Tenderness with palpation at medial ankle and into arch PT-OP-K Range of Motion Start: 03/03/18 08:45 Freq: Status: Active Protocol: Document 06/03/18 11:15 AMB (Rec: 06/05/18 11:00 AMB [email or web address]) Ankle and Foot Goniometric Range of Motion Ankle and Foot Measured in Degrees Right Passive Testing Position Supine Dorsiflexion with Knee Extended 10 Plantarflexion 50 Inversion 25 Eversion 25 Left Passive Testing Position Supine Dorsiflexion with Knee Extended 5 Plantarflexion 50 Inversion 20 Eversion 20 PT-OP-M Strength Start: 03/03/18 08:45 Freq: Status: Active Protocol: Document 06/03/18 11:15 AMB (Rec: 06/05/18 11:00 AMB [email or web address]) Ankle/Foot Strength Ankle and Foot Manual Muscle Testing Right Dorsiflexion (L4) 5 Normal Plantarflexion (S1) 4 Good Inversion 3+ Fair+ Eversion (S1) 4 Good Left Dorsiflexion (L4) 4 Good Plantarflexion (S1) 4 Good Inversion 4+ Good+ Eversion (S1) 4+ Good+ PT-OP-Q Treatments Start: 03/03/18 08:45 Freq: Status: Active Protocol: Document 06/10/18 11:15 AMB (Rec: 06/10/18 16:37 AMB [email or web address]) Therapeutic Exercises Sitting Exercises 3 Sitting Exercise Name calf stretch Reps/Minutes 30x2 2 Sitting Exercise Name foot inversion/eversion Resistance #3 tband Reps/Minutes 2x10 1 Sitting Exercise Name ankle dorsiflexion/ plantarflexion Resistance #3 t band Reps/Minutes 2x10 Manual Therapy Treatment Soft Tissue Mobilization 2 Body Location ankles Comments L tibialis ant. R posterior tibial insertion Taping 1 Body Location I strip over posterior tib PT-OP-R Modalities Start: 03/03/18 08:45 Freq: Status: Active Protocol: Document 06/10/18 11:15 AMB (Rec: 06/10/18 16:32 AMB [email or web address]) Hot Pack/Cold Pack Treatment Cold Pack Location R ankle Treatment Duration (minutes) 10 PT-OP-T Assessment and Plan Start: 03/03/18 08:45 Freq: Status: Active Protocol: Document 06/10/18 11:15 AMB (Rec: 06/10/18 16:32 AMB [email or web address]) Physical Therapy Assessment Assessment Summary Assessment Pt with good tolerance for exercises today. Tendnerness continues. Physical Therapy Plan Next Visit Focus/Plan Next Note Type Treatment Note Next Visit Plan Dynamic stabilization, balance training. Ankle stabilization, reassess tolerance to taping.
--- NOTE | 2018-06-16 14:21 | PT.OTN ---
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), right foot (06/16/18) Posterior tibial tendinitis, right leg (06/16/18) Physical Therapy Treatment Note PT-OP-A Visit Information Start: 03/03/18 08:45 Freq: Status: Active Protocol: Document 06/16/18 09:45 AMB (Rec: 06/16/18 14:21 AMB [email or web address]) Out-Patient Physical Therapy Visit Information Visit Information Visit Type Treatment Note Visit Note 32 Visit Start Time 09:45 Visit Stop Time 10:30 Total Visit Minutes 45 Visit Number 23 PT-OP-B Current Condition Start: 03/03/18 08:45 Freq: Status: Active Protocol: Document 03/03/18 08:45 AMB (Rec: 03/06/18 12:15 AMB [email or web address]) Current Condition History of Current Condition Onset Date 02/23/18 Current Complaints s/p L TKA History of Current Condition The patient had a left total knee arthroplasty on 02/23/18. She has been home with her (they have stairs to enter the house with a railing ). She states her pain has been under good control but she has been afraid to bend her knee much. Treatment Goals Patient/Caregiver Goals Stand and walk normally Prior Functional Status Baseline Function- ADL's Independent Baseline Function- Mobility Independent Baseline Function- Gait Pt was not using an assistive device prior to surgery Current Functional Impairments (Reported) Functional Limitations- ADL's Pt ambulating with FWW, has not showered yet, has not returned to driving Personal Factors Other Personal Factors That May Effect hypertension, R knee pain Therapy/Recovery PT-OP-C Subjective Start: 03/03/18 08:45 Freq: Status: Active Protocol: Document 06/16/18 09:45 AMB (Rec: 06/16/18 14:21 AMB [email or web address]) OP-PT Subjective Patient Comments Patient Comments 4/10 pain in the ankle with walking, 0/10 at rest. Taping seemed to help. PT-OP-D Balance Start: 03/03/18 08:45 Freq: Status: Active Protocol: Document 03/03/18 08:45 AMB (Rec: 03/06/18 12:41 AMB [email or web address]) Balance Tests Other Other Balance Tests Performed Unable to perform single leg stance on the L. Unable to perform tandem stance. NBOS EO increases ankle sway. PT-OP-G Mobility & Gait Start: 03/03/18 08:45 Freq: Status: Active Protocol: Document 06/03/18 11:15 AMB (Rec: 06/06/18 09:16 AMB [email or web address]) OP Gait Assessment Comments Gait Comments Pt notes new onset feeling that she is not lifting her feet not tripping over her toes but has been noticing more scuffing on the toes of her shoes. PT-OP-J Posture/Palpation/Skin Start: 03/03/18 08:45 Freq: Status: Active Protocol: Document 06/03/18 11:15 AMB (Rec: 06/06/18 09:16 AMB [email or web address]) Palpation Assessment Location One Palpation Location R foot Palpation Findings Edema Palpation Details Tenderness with palpation at medial ankle and into arch PT-OP-K Range of Motion Start: 03/03/18 08:45 Freq: Status: Active Protocol: Document 06/03/18 11:15 AMB (Rec: 06/05/18 11:00 AMB [email or web address]) Ankle and Foot Goniometric Range of Motion Ankle and Foot Measured in Degrees Right Passive Testing Position Supine Dorsiflexion with Knee Extended 10 Plantarflexion 50 Inversion 25 Eversion 25 Left Passive Testing Position Supine Dorsiflexion with Knee Extended 5 Plantarflexion 50 Inversion 20 Eversion 20 PT-OP-M Strength Start: 03/03/18 08:45 Freq: Status: Active Protocol: Document 06/03/18 11:15 AMB (Rec: 06/05/18 11:00 AMB [email or web address]) Ankle/Foot Strength Ankle and Foot Manual Muscle Testing Right Dorsiflexion (L4) 5 Normal Plantarflexion (S1) 4 Good Inversion 3+ Fair+ Eversion (S1) 4 Good Left Dorsiflexion (L4) 4 Good Plantarflexion (S1) 4 Good Inversion 4+ Good+ Eversion (S1) 4+ Good+ PT-OP-Q Treatments Start: 03/03/18 08:45 Freq: Status: Active Protocol: Document 06/16/18 09:45 AMB (Rec: 06/16/18 14:21 AMB [email or web address]) Therapeutic Exercises Sitting Exercises 3 Sitting Exercise Name calf stretch Reps/Minutes 30x2 2 Sitting Exercise Name foot inversion/eversion Resistance #3 tband Reps/Minutes 2x10 1 Sitting Exercise Name ankle dorsiflexion/ plantarflexion Resistance #3 t band Reps/Minutes 2x10 Manual Therapy Treatment Soft Tissue Mobilization 2 Body Location ankles Comments R posterior tibial insertion Taping 1 Body Location I strip over posterior tib PT-OP-R Modalities Start: 03/03/18 08:45 Freq: Status: Active Protocol: Document 06/16/18 09:45 AMB (Rec: 06/16/18 14:21 AMB [email or web address]) Ultrasound Therapy Treatment Right Medial Ankle Treatment Duration (minutes) 8 Patient Position Hooklying Coupling Medium Ultrasound Gel Frequency Setting (mHz) 1 Intensity Setting (w/cm2) 1.2 PT-OP-T Assessment and Plan Start: 03/03/18 08:45 Freq: Status: Active Protocol: Document 06/16/18 09:45 AMB (Rec: 06/16/18 14:21 AMB [email or web address]) Physical Therapy Assessment Assessment Summary Assessment Tenderness continues, will increase challenge of ther ex next visit based on good tolerance today. Physical Therapy Plan Next Visit Focus/Plan Next Note Type Treatment Note Next Visit Plan Dynamic stabilization, balance training. Ankle stabilization,
--- NOTE | 2018-06-22 13:23 | PT.OTN ---
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), right foot (06/22/18) Posterior tibial tendinitis, right leg (06/22/18) Physical Therapy Treatment Note PT-OP-A Visit Information Start: 03/03/18 08:45 Freq: Status: Active Protocol: Document 06/22/18 09:00 AMB (Rec: 06/22/18 13:22 AMB [email or web address]) Out-Patient Physical Therapy Visit Information Visit Information Visit Type Treatment Note Visit Note 4 Visit Start Time 09:00 Visit Stop Time 09:45 Total Visit Minutes 45 Visit Number 24 PT-OP-B Current Condition Start: 03/03/18 08:45 Freq: Status: Active Protocol: Document 03/03/18 08:45 AMB (Rec: 03/06/18 12:15 AMB [email or web address]) Current Condition History of Current Condition Onset Date 02/23/18 Current Complaints s/p L TKA History of Current Condition The patient had a left total knee arthroplasty on 02/23/18. She has been home with her (they have stairs to enter the house with a railing ). She states her pain has been under good control but she has been afraid to bend her knee much. Treatment Goals Patient/Caregiver Goals Stand and walk normally Prior Functional Status Baseline Function- ADL's Independent Baseline Function- Mobility Independent Baseline Function- Gait Pt was not using an assistive device prior to surgery Current Functional Impairments (Reported) Functional Limitations- ADL's Pt ambulating with FWW, has not showered yet, has not returned to driving Personal Factors Other Personal Factors That May Effect hypertension, R knee pain Therapy/Recovery PT-OP-C Subjective Start: 03/03/18 08:45 Freq: Status: Active Protocol: Document 06/22/18 09:00 AMB (Rec: 06/22/18 13:22 AMB [email or web address]) OP-PT Subjective Patient Comments Patient Comments Pt has a new brace, wearing a night splint. Pain is higher up today. PT-OP-D Balance Start: 03/03/18 08:45 Freq: Status: Active Protocol: Document 03/03/18 08:45 AMB (Rec: 03/06/18 12:41 AMB [email or web address]) Balance Tests Other Other Balance Tests Performed Unable to perform single leg stance on the L. Unable to perform tandem stance. NBOS EO increases ankle sway. PT-OP-G Mobility & Gait Start: 03/03/18 08:45 Freq: Status: Active Protocol: Document 06/03/18 11:15 AMB (Rec: 06/06/18 09:16 AMB [email or web address]) OP Gait Assessment Comments Gait Comments Pt notes new onset feeling that she is not lifting her feet not tripping over her toes but has been noticing more scuffing on the toes of her shoes. PT-OP-J Posture/Palpation/Skin Start: 03/03/18 08:45 Freq: Status: Active Protocol: Document 06/03/18 11:15 AMB (Rec: 06/06/18 09:16 AMB [email or web address]) Palpation Assessment Location One Palpation Location R foot Palpation Findings Edema Palpation Details Tenderness with palpation at medial ankle and into arch PT-OP-K Range of Motion Start: 03/03/18 08:45 Freq: Status: Active Protocol: Document 06/03/18 11:15 AMB (Rec: 06/05/18 11:00 AMB [email or web address]) Ankle and Foot Goniometric Range of Motion Ankle and Foot Measured in Degrees Right Passive Testing Position Supine Dorsiflexion with Knee Extended 10 Plantarflexion 50 Inversion 25 Eversion 25 Left Passive Testing Position Supine Dorsiflexion with Knee Extended 5 Plantarflexion 50 Inversion 20 Eversion 20 PT-OP-M Strength Start: 03/03/18 08:45 Freq: Status: Active Protocol: Document 06/03/18 11:15 AMB (Rec: 06/05/18 11:00 AMB [email or web address]) Ankle/Foot Strength Ankle and Foot Manual Muscle Testing Right Dorsiflexion (L4) 5 Normal Plantarflexion (S1) 4 Good Inversion 3+ Fair+ Eversion (S1) 4 Good Left Dorsiflexion (L4) 4 Good Plantarflexion (S1) 4 Good Inversion 4+ Good+ Eversion (S1) 4+ Good+ PT-OP-Q Treatments Start: 03/03/18 08:45 Freq: Status: Active Protocol: Document 06/22/18 09:00 AMB (Rec: 06/22/18 13:22 AMB [email or web address]) Gym Equipment Shuttle Balance 1 Details RED Comments ant/post and med/ lat EO trying to reduce use of UEs Therapeutic Exercises Sitting Exercises 3 Sitting Exercise Name calf stretch Reps/Minutes 30x2 Standing Exercises 6 Standing Exercise Name heel raises Reps/Minutes 10 Comments double leg Manual Therapy Treatment Soft Tissue Mobilization 2 Body Location ankles Comments R posterior tibial insertion and into calf PT-OP-R Modalities Start: 03/03/18 08:45 Freq: Status: Active Protocol: Document 06/16/18 09:45 AMB (Rec: 06/16/18 14:21 AMB [email or web address]) Ultrasound Therapy Treatment Right Medial Ankle Treatment Duration (minutes) 8 Patient Position Hooklying Coupling Medium Ultrasound Gel Frequency Setting (mHz) 1 Intensity Setting (w/cm2) 1.2 PT-OP-T Assessment and Plan Start: 03/03/18 08:45 Freq: Status: Active Protocol: Document 06/22/18 09:00 AMB (Rec: 06/22/18 13:22 AMB [email or web address]) Physical Therapy Assessment Assessment Summary Assessment Pt better tolerating heel raises Physical Therapy Plan Next Visit Focus/Plan Next Note Type Treatment Note Next Visit Plan Dynamic stabilization, balance training. Ankle stabilization,
--- NOTE | 2018-07-01 15:24 | PT.OTN ---
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), right foot (07/01/18) Posterior tibial tendinitis, right leg (07/01/18) Physical Therapy Treatment Note PT-OP-A Visit Information Start: 03/03/18 08:45 Freq: Status: Active Protocol: Document 07/01/18 15:15 AMB (Rec: 07/01/18 15:24 AMB [email or web address]) Out-Patient Physical Therapy Visit Information Visit Information Visit Type Treatment Note Visit Note 5 Visit Start Time 13:45 Visit Stop Time 14:30 Total Visit Minutes 45 Visit Number 25 PT-OP-B Current Condition Start: 03/03/18 08:45 Freq: Status: Active Protocol: Document 03/03/18 08:45 AMB (Rec: 03/06/18 12:15 AMB [email or web address]) Current Condition History of Current Condition Onset Date 02/23/18 Current Complaints s/p L TKA History of Current Condition The patient had a left total knee arthroplasty on 02/23/18. She has been home with her (they have stairs to enter the house with a railing ). She states her pain has been under good control but she has been afraid to bend her knee much. Treatment Goals Patient/Caregiver Goals Stand and walk normally Prior Functional Status Baseline Function- ADL's Independent Baseline Function- Mobility Independent Baseline Function- Gait Pt was not using an assistive device prior to surgery Current Functional Impairments (Reported) Functional Limitations- ADL's Pt ambulating with FWW, has not showered yet, has not returned to driving Personal Factors Other Personal Factors That May Effect hypertension, R knee pain Therapy/Recovery PT-OP-C Subjective Start: 03/03/18 08:45 Freq: Status: Active Protocol: Document 07/01/18 15:15 AMB (Rec: 07/01/18 15:24 AMB [email or web address]) OP-PT Subjective Patient Comments Patient Comments Pt has given up with her braces, as they have not been helping she is having the worst pain at night, and the foot is being pushed down by the sheets. PT-OP-D Balance Start: 03/03/18 08:45 Freq: Status: Active Protocol: Document 03/03/18 08:45 AMB (Rec: 03/06/18 12:41 AMB [email or web address]) Balance Tests Other Other Balance Tests Performed Unable to perform single leg stance on the L. Unable to perform tandem stance. NBOS EO increases ankle sway. PT-OP-G Mobility & Gait Start: 03/03/18 08:45 Freq: Status: Active Protocol: Document 06/03/18 11:15 AMB (Rec: 06/06/18 09:16 AMB [email or web address]) OP Gait Assessment Comments Gait Comments Pt notes new onset feeling that she is not lifting her feet not tripping over her toes but has been noticing more scuffing on the toes of her shoes. PT-OP-J Posture/Palpation/Skin Start: 03/03/18 08:45 Freq: Status: Active Protocol: Document 06/03/18 11:15 AMB (Rec: 06/06/18 09:16 AMB [email or web address]) Palpation Assessment Location One Palpation Location R foot Palpation Findings Edema Palpation Details Tenderness with palpation at medial ankle and into arch PT-OP-K Range of Motion Start: 03/03/18 08:45 Freq: Status: Active Protocol: Document 06/03/18 11:15 AMB (Rec: 06/05/18 11:00 AMB [email or web address]) Ankle and Foot Goniometric Range of Motion Ankle and Foot Measured in Degrees Right Passive Testing Position Supine Dorsiflexion with Knee Extended 10 Plantarflexion 50 Inversion 25 Eversion 25 Left Passive Testing Position Supine Dorsiflexion with Knee Extended 5 Plantarflexion 50 Inversion 20 Eversion 20 PT-OP-M Strength Start: 03/03/18 08:45 Freq: Status: Active Protocol: Document 06/03/18 11:15 AMB (Rec: 06/05/18 11:00 AMB [email or web address]) Ankle/Foot Strength Ankle and Foot Manual Muscle Testing Right Dorsiflexion (L4) 5 Normal Plantarflexion (S1) 4 Good Inversion 3+ Fair+ Eversion (S1) 4 Good Left Dorsiflexion (L4) 4 Good Plantarflexion (S1) 4 Good Inversion 4+ Good+ Eversion (S1) 4+ Good+ PT-OP-Q Treatments Start: 03/03/18 08:45 Freq: Status: Active Protocol: Document 07/01/18 15:15 AMB (Rec: 07/01/18 15:24 AMB [email or web address]) Therapeutic Exercises Sitting Exercises 3 Sitting Exercise Name calf stretch Reps/Minutes 30x2 2 Sitting Exercise Name foot inversion/eversion Resistance #3 tband Reps/Minutes 2x10 1 Sitting Exercise Name ankle dorsiflexion/ plantarflexion Resistance #3 t band Reps/Minutes 2x10 Standing Exercises 6 Standing Exercise Name heel raises Reps/Minutes 10 Comments double leg Manual Therapy Treatment Soft Tissue Mobilization 2 Body Location ankles Comments R posterior tibial insertion and into calf Taping 1 Body Location I strip over posterior tib PT-OP-R Modalities Start: 03/03/18 08:45 Freq: Status: Active Protocol: Document 06/16/18 09:45 AMB (Rec: 06/16/18 14:21 AMB [email or web address]) Ultrasound Therapy Treatment Right Medial Ankle Treatment Duration (minutes) 8 Patient Position Hooklying Coupling Medium Ultrasound Gel Frequency Setting (mHz) 1 Intensity Setting (w/cm2) 1.2 PT-OP-T Assessment and Plan Start: 03/03/18 08:45 Freq: Status: Active Protocol: Document 07/01/18 15:15 AMB (Rec: 07/01/18 15:24 AMB [email or web address]) Physical Therapy Assessment Assessment Summary Assessment Pt has not been doing her toe curls, so re-instituted those. She has been doing her stretching and theraband exercises. Physical Therapy Plan Next Visit Focus/Plan Next Note Type Treatment Note Next Visit Plan Dynamic stabilization, balance training. Ankle stabilization, can try iontophoresis next visit.
--- NOTE | 2018-07-07 15:40 | PT.OTN ---
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), right foot (07/07/18) Posterior tibial tendinitis, right leg (07/07/18) Physical Therapy Treatment Note PT-OP-A Visit Information Start: 03/03/18 08:45 Freq: Status: Active Protocol: Document 07/07/18 13:45 AMB (Rec: 07/07/18 15:40 AMB [email or web address]) Out-Patient Physical Therapy Visit Information Visit Information Visit Type Treatment Note Visit Note 6 Visit Start Time 13:45 Visit Stop Time 14:30 Total Visit Minutes 45 Visit Number 26 PT-OP-B Current Condition Start: 03/03/18 08:45 Freq: Status: Active Protocol: Document 03/03/18 08:45 AMB (Rec: 03/06/18 12:15 AMB [email or web address]) Current Condition History of Current Condition Onset Date 02/23/18 Current Complaints s/p L TKA History of Current Condition The patient had a left total knee arthroplasty on 02/23/18. She has been home with her (they have stairs to enter the house with a railing ). She states her pain has been under good control but she has been afraid to bend her knee much. Treatment Goals Patient/Caregiver Goals Stand and walk normally Prior Functional Status Baseline Function- ADL's Independent Baseline Function- Mobility Independent Baseline Function- Gait Pt was not using an assistive device prior to surgery Current Functional Impairments (Reported) Functional Limitations- ADL's Pt ambulating with FWW, has not showered yet, has not returned to driving Personal Factors Other Personal Factors That May Effect hypertension, R knee pain Therapy/Recovery PT-OP-C Subjective Start: 03/03/18 08:45 Freq: Status: Active Protocol: Document 07/07/18 13:45 AMB (Rec: 07/07/18 15:40 AMB [email or web address]) OP-PT Subjective Patient Comments Patient Comments Pt continues to have pain at night with her foot. The pain is going higher up into the medial calf now. PT-OP-D Balance Start: 03/03/18 08:45 Freq: Status: Active Protocol: Document 03/03/18 08:45 AMB (Rec: 03/06/18 12:41 AMB [email or web address]) Balance Tests Other Other Balance Tests Performed Unable to perform single leg stance on the L. Unable to perform tandem stance. NBOS EO increases ankle sway. PT-OP-G Mobility & Gait Start: 03/03/18 08:45 Freq: Status: Active Protocol: Document 06/03/18 11:15 AMB (Rec: 06/06/18 09:16 AMB [email or web address]) OP Gait Assessment Comments Gait Comments Pt notes new onset feeling that she is not lifting her feet not tripping over her toes but has been noticing more scuffing on the toes of her shoes. PT-OP-J Posture/Palpation/Skin Start: 03/03/18 08:45 Freq: Status: Active Protocol: Document 06/03/18 11:15 AMB (Rec: 06/06/18 09:16 AMB [email or web address]) Palpation Assessment Location One Palpation Location R foot Palpation Findings Edema Palpation Details Tenderness with palpation at medial ankle and into arch PT-OP-K Range of Motion Start: 03/03/18 08:45 Freq: Status: Active Protocol: Document 06/03/18 11:15 AMB (Rec: 06/05/18 11:00 AMB [email or web address]) Ankle and Foot Goniometric Range of Motion Ankle and Foot Measured in Degrees Right Passive Testing Position Supine Dorsiflexion with Knee Extended 10 Plantarflexion 50 Inversion 25 Eversion 25 Left Passive Testing Position Supine Dorsiflexion with Knee Extended 5 Plantarflexion 50 Inversion 20 Eversion 20 PT-OP-M Strength Start: 03/03/18 08:45 Freq: Status: Active Protocol: Document 06/03/18 11:15 AMB (Rec: 06/05/18 11:00 AMB [email or web address]) Ankle/Foot Strength Ankle and Foot Manual Muscle Testing Right Dorsiflexion (L4) 5 Normal Plantarflexion (S1) 4 Good Inversion 3+ Fair+ Eversion (S1) 4 Good Left Dorsiflexion (L4) 4 Good Plantarflexion (S1) 4 Good Inversion 4+ Good+ Eversion (S1) 4+ Good+ PT-OP-Q Treatments Start: 03/03/18 08:45 Freq: Status: Active Protocol: Document 07/07/18 13:45 AMB (Rec: 07/07/18 15:40 AMB [email or web address]) Therapeutic Exercises Sitting Exercises 3 Sitting Exercise Name calf stretch Reps/Minutes 30x2 2 Sitting Exercise Name foot inversion/eversion Resistance #3 tband Reps/Minutes 2x10 1 Sitting Exercise Name ankle dorsiflexion/ plantarflexion Resistance #3 t band Reps/Minutes 2x10 Standing Exercises 6 Standing Exercise Name heel raises Reps/Minutes 10 Comments double leg Manual Therapy Treatment Soft Tissue Mobilization 2 Body Location ankles Comments R posterior tibial insertion and into calf PT-OP-R Modalities Start: 03/03/18 08:45 Freq: Status: Active Protocol: Document 07/07/18 13:45 AMB (Rec: 07/07/18 15:40 AMB [email or web address]) Iontophoresis Treatment Right Medial Ankle Treatment Medication Dexamethasone (-) Medication Amount (mL) (ml) 4 Treatment Polarity Negative to Negative Treatment Duration (minutes) 2 PT-OP-T Assessment and Plan Start: 03/03/18 08:45 Freq: Status: Active Protocol: Document 07/07/18 13:45 AMB (Rec: 07/07/18 15:40 AMB [email or web address]) Physical Therapy Assessment Assessment Summary Assessment Pt continues to have soreness with HEP (increases from 05/26 to 3). Physical Therapy Plan Next Visit Focus/Plan Next Note Type Treatment Note Next Visit Plan Dynamic stabilization, balance training. Ankle stabilization, can try iontophoresis next visit.
--- NOTE | 2018-07-15 16:00 | PT.OTN ---
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), right foot (07/15/18) Posterior tibial tendinitis, right leg (07/15/18) Physical Therapy Treatment Note PT-OP-A Visit Information Start: 03/03/18 08:45 Freq: Status: Active Protocol: Document 07/15/18 09:45 AMB (Rec: 07/18/18 13:41 AMB [email or web address]) Out-Patient Physical Therapy Visit Information Visit Information Visit Type Discharge Summary Visit Note 7 Visit Start Time 09:45 Visit Stop Time 10:30 Total Visit Minutes 45 Visit Number 27 PT-OP-B Current Condition Start: 03/03/18 08:45 Freq: Status: Active Protocol: Document 03/03/18 08:45 AMB (Rec: 03/06/18 12:15 AMB [email or web address]) Current Condition History of Current Condition Onset Date 02/23/18 Current Complaints s/p L TKA History of Current Condition The patient had a left total knee arthroplasty on 02/23/18. She has been home with her (they have stairs to enter the house with a railing ). She states her pain has been under good control but she has been afraid to bend her knee much. Treatment Goals Patient/Caregiver Goals Stand and walk normally Prior Functional Status Baseline Function- ADL's Independent Baseline Function- Mobility Independent Baseline Function- Gait Pt was not using an assistive device prior to surgery Current Functional Impairments (Reported) Functional Limitations- ADL's Pt ambulating with FWW, has not showered yet, has not returned to driving Personal Factors Other Personal Factors That May Effect hypertension, R knee pain Therapy/Recovery PT-OP-C Subjective Start: 03/03/18 08:45 Freq: Status: Active Protocol: Document 07/15/18 09:45 AMB (Rec: 07/18/18 13:41 AMB [email or web address]) OP-PT Subjective Patient Comments Patient Comments The patient is ready to recheck with her podatrist. She states that her knee doesn ;t bother her at all, but her foot continues to be painful. She did feel that the iontophoresis with dexamethasone was helpful for a few days, but it did not last. PT-OP-D Balance Start: 03/03/18 08:45 Freq: Status: Active Protocol: Document 03/03/18 08:45 AMB (Rec: 03/06/18 12:41 AMB [email or web address]) Balance Tests Other Other Balance Tests Performed Unable to perform single leg stance on the L. Unable to perform tandem stance. NBOS EO increases ankle sway. PT-OP-G Mobility & Gait Start: 03/03/18 08:45 Freq: Status: Active Protocol: Document 06/03/18 11:15 AMB (Rec: 06/06/18 09:16 AMB [email or web address]) OP Gait Assessment Comments Gait Comments Pt notes new onset feeling that she is not lifting her feet not tripping over her toes but has been noticing more scuffing on the toes of her shoes. PT-OP-J Posture/Palpation/Skin Start: 03/03/18 08:45 Freq: Status: Active Protocol: Document 06/03/18 11:15 AMB (Rec: 06/06/18 09:16 AMB [email or web address]) Palpation Assessment Location One Palpation Location R foot Palpation Findings Edema Palpation Details Tenderness with palpation at medial ankle and into arch PT-OP-K Range of Motion Start: 03/03/18 08:45 Freq: Status: Active Protocol: Document 07/15/18 10:05 AMB (Rec: 07/15/18 10:15 AMB [id number]) Knee Goniometric Range of Motion Knee Measured in Degrees Left Flexion Passive (degrees) 95 Extension Active (degrees) 5 Extension Passive (degrees) 2 Ankle and Foot Goniometric Range of Motion Ankle and Foot Measured in Degrees Right Passive Dorsiflexion with Knee Extended 10 Plantarflexion 40 Inversion 30 Eversion 15 PT-OP-M Strength Start: 03/03/18 08:45 Freq: Status: Active Protocol: Document 06/03/18 11:15 AMB (Rec: 06/05/18 11:00 AMB [email or web address]) Ankle/Foot Strength Ankle and Foot Manual Muscle Testing Right Dorsiflexion (L4) 5 Normal Plantarflexion (S1) 4 Good Inversion 3+ Fair+ Eversion (S1) 4 Good Left Dorsiflexion (L4) 4 Good Plantarflexion (S1) 4 Good Inversion 4+ Good+ Eversion (S1) 4+ Good+ PT-OP-Q Treatments Start: 03/03/18 08:45 Freq: Status: Active Protocol: Document 07/15/18 09:00 AMB (Rec: 07/27/18 10:43 AMB [email or web address]) Therapeutic Exercises Supine Exercises 3 Supine Exercise Name single knee to chest Reps/Minutes 30x2 2 Supine Exercise Name hip flexor stretch Reps/Minutes 30x2 1 Supine Exercise Name knee extension stretch Reps/Minutes 30x2 Sitting Exercises 3 Sitting Exercise Name calf stretch Reps/Minutes 30x2 2 Sitting Exercise Name foot inversion/eversion Resistance #3 tband Reps/Minutes 2x10 1 Sitting Exercise Name ankle dorsiflexion/ plantarflexion Resistance #3 t band Reps/Minutes 2x10 Standing Exercises 6 Standing Exercise Name heel raises Reps/Minutes 10 Comments double leg Manual Therapy Treatment Soft Tissue Mobilization 2 Body Location ankles Comments R posterior tibial insertion and into calf Joint Mobilizations 1 Joint tibiofemoral Direction AP/ PA Grade IV Body Position Hooklying PT-OP-R Modalities Start: 03/03/18 08:45 Freq: Status: Active Protocol: Document 07/07/18 13:45 AMB (Rec: 07/07/18 15:40 AMB [email or web address]) Iontophoresis Treatment Right Medial Ankle Treatment Medication Dexamethasone (-) Medication Amount (mL) (ml) 4 Treatment Polarity Negative to Negative Treatment Duration (minutes) 2 PT-OP-T Assessment and Plan Start: 03/03/18 08:45 Freq: Status: Active Protocol: Document 07/15/18 10:00 AMB (Rec: 07/15/18 10:05 AMB [id number]) Physical Therapy Assessment Goals Five Impairment Ankle strength Short Term Goal (STG) The patient will perform 10 heel raises without ankle pain . STG Duration NOT MET [facility] Goal (LTG) The patient will improve her ankle strength in all planes to 4+/5. LTG Duration NOT MET Four Impairment ankle pain Short Term Goal (STG) The patient will ambulate without assistive device for 10 mintues with 3/10 ankle pain or less. STG Duration NOT MET Three Impairment gait Short Term Goal (STG) The patient will ambulate for 300' without an assistive device. STG Duration MET Technical Maintenance Technician Goal (LTG) The patient will ambulate in the community over uneven terrain (grass, gravel, hills) for 30 minutes with 2/10 knee pain or less without an assistive device. LTG Duration MET Two Impairment strength Short Term Goal (STG) The patient will show improved LE strength by performing a partial squat without UE support. STG Duration MET [facility] Goal (LTG) The patient will show improved strength so she can control the descent of her body while going down stairs with step over step pattern with 1 rail. LTG Duration NOT MET One Impairment ROM Short Term Goal (STG) AROM will improve to -5 to 100 . STG Duration MET Technical Maintenance Technician Goal (LTG) PROM will improve to 0-120 so she is able to go down stairs without compensation. LTG Duration NOT MET Assessment Summary Assessment Debora is most concerned with her ankle pain at this time. She had stopped doing some of her knee exercises and we actually lost range of motion in the last month. She was instructed specifically in 6 exercises to prioritize, 3 for her knee, 3 for her ankle. 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 Overall her knee pain is quite improved, but her range of motion and gait continued to be limited. She is stopping PT at this time because her ankle isn't really getting better with PT. She has been seen for 28 visits mostly for her knee which is feeling better. Physical Therapy Plan Discharge Physical Therapy Discharge Reasons Plateau in Progress
== END 2018-08-15 08:11 ==
LOC: PHYS 09:45
PROVIDERS: Family Provider Internal Medicine; PCP Internal Medicine; Visit Provider Orthopaedic Surgery
DX: M17.12 Unilateral primary osteoarthritis, left knee (principal); M76.821 Posterior tibial tendinitis, right leg; M21.41 Flat foot [pes planus] (acquired), right foot
CPT/HCPCS: 97010; 97035; 97110; 97112; 97116; 97140; 97162; 97164

== ENCOUNTER → 2018-08-26 15:56 | Outpatient (CLI) | payer OTHER, SELFPAY ==
[2018-02-23 16:47] VITALS: BMI 36.6
[2018-08-26 16:44] LABS: BUN Creatinine Ratio 25.7 (6-22); Blood Urea Nitrogen 18 mg/dL (7-17); Calcium 10.2 mg/dL (8.4-10.2); Carbon Dioxide 32 mmol/L (22-32); Chloride 97 mmol/L (98-107); Estimated Glomerular Filt Rate > 60.0 mL/min (>60); Glucose 94 mg/dL (80-110); HEMOLYSIS < 15 (0-50); Potassium 3.9 mmol/L (3.4-5.1); Sodium 136 mmol/L (137-145)
== END ==
PROVIDERS: Family Provider Internal Medicine; PCP Internal Medicine; Visit Provider Internal Medicine
DX: M15.0 Primary generalized (osteo)arthritis (principal); I48.91 Unspecified atrial fibrillation
CPT/HCPCS: 36415; 80048

== ENCOUNTER → 2018-10-06 12:35 | Outpatient (CLI) | payer OTHER, SELFPAY ==
[2018-02-23 16:47] VITALS: BMI 36.6
== END ==
PROVIDERS: Family Provider Internal Medicine; PCP Internal Medicine; Visit Provider Physician Assistant
DX: J02.9 Acute pharyngitis, unspecified (principal)
CPT/HCPCS: 87070

== ENCOUNTER → 2022-02-12 16:00 | Outpatient (CLI) | payer OTHER, SELFPAY ==
[2021-05-13 09:05] VITALS: BMI 36.6
--- NOTE | 2022-02-12 16:01 | DI.MG.S_ITS ---
BILATERAL DIGITAL SCREENING MAMMOGRAM 3D/2D WITH CAD: 02/12/2022 CLINICAL: Routine screening. Comparison is made to exams dated: 06/13/2018 mammogram, 09/24/2016 mammogram, and 08/28/2015 mammogram - [facility]. There are scattered areas of fibroglandular density in both breasts (category b / 25%-50% glandular tissue). Current study was also evaluated with a Computer Aided Detection (CAD) system. No significant masses, calcifications, or other findings are seen in either breast. There has been no significant interval change. IMPRESSION: NEGATIVE There is no mammographic evidence of malignancy. A 1 year screening mammogram is recommended. Based on the Tyrer Cuzick model (a risk assessment model) the patient's lifetime risk is 2.5% and her 10 year risk is 0.0%. According to the ACR, ACS, and NCCN guidelines, an annual breast MRI exam along with mammogram is recommended if the patient's lifetime risk is 20% or greater. This exam was interpreted at Station ID: [id number]. NOTE: For mammograms, a report in lay terms will be sent to the patient. Approximately 15% of breast malignancies will not be visualized mammographically. In the management of a palpable breast mass, a negative mammogram must not discourage biopsy of a clinically suspicious lesion. Electronically Signed By: Steven peoples/theresa:02/12/2022 16:31:31 letter sent: Normal Exam ACR BI-RADS Category 1: Negative 3341F
== END ==
PROVIDERS: Family Provider Internal Medicine; PCP Student in an Organized Health Care Education/Training Program; Referring Provider Student in an Organized Health Care Education/Training Program; Visit Provider Student in an Organized Health Care Education/Training Program
DX: Z12.31 Encounter for screening mammogram for malignant neoplasm of breast (principal)
CPT/HCPCS: 77063; 77067

== ENCOUNTER → 2022-06-25 12:13 | Outpatient (CLI) | payer OTHER, SELFPAY ==
[2021-05-13 09:05] VITALS: BMI 36.6
--- NOTE | 2022-06-25 12:15 | DI.US.S_ITS ---
PROCEDURE: US PELVIC COMPLETE INDICATIONS: Postmenopausal bleeding TECHNIQUE: Real-time scanning was performed of the pelvic organs, with image documentation. Additional endovaginal scanning was necessary due to incomplete visualization of the adnexal and endometrial structures by transabdominal scanning. COMPARISON: None. FINDINGS: Uterus: Uterus is anteverted and normal in size at 7.2 x 3.1 x 4.1 cm. The myometrium is homogeneous. The endometrium measures 7 mm combined thickness. No focal uterine mass Ovaries: Not seen secondary to overlying bowel gas. Other: No pathologic free abdominal or pelvic fluid. IMPRESSION: Thickened endometrium, possibly indicating hyperplasia or malignancy. Gynecological consultation recommended. We strive to produce accurate, complete, and clear reports of imaging services. To assist us in improving patient care, this report was composed using standard report templates and voice recognition software. Therefore, it may contain abnormal punctuation, insertions and/or omissions. Occasional wrong-word or sound-alike substitutions may occur. Though we review the report and make efforts to correct it, we do recommend that the report be read carefully in proper context to recognize any text inaccuracies. Dictated by: Nery Rubio M.D. on 06/25/2022 at 16:18 Transcribed by: KATIE on 06/25/2022 at 16:19 Approved by: Nery Rubio M.D. on 06/25/2022 at 16:40
== END ==
PROVIDERS: Family Provider Internal Medicine; PCP Student in an Organized Health Care Education/Training Program; Referring Provider Student in an Organized Health Care Education/Training Program; Visit Provider Student in an Organized Health Care Education/Training Program
DX: N95.0 Postmenopausal bleeding (principal); R93.89 Abnormal findings on diagnostic imaging of other specified body structures
CPT/HCPCS: 76830; 76856

== ENCOUNTER → 2023-01-11 12:18 | Outpatient (CLI) | payer OTHER, SELFPAY ==
[2021-05-13 09:05] VITALS: BMI 36.6
--- NOTE | 2023-01-11 | DI.ECHO.S_ITS ---
[facility]---------+ [facility] +---------+ : : [address] : [place] : : : : [id number] : : : : Phone: [phone]+ Echocardiogram Report + + :Name: ANGY SANDHU Study Date: 01/11/2023 Height: 59 in : :[facility] ReadingLocation: Weight: 194 lb : : Gender: Female BSA: 1.8 m2 : :: 1940 Age: 82 yrs BP: 173/93 mmHg: :Reason For Study: Enlarged Aorta on Echo 2018 : :Ordering Physician: SANTOSH, : :JUHI Performed By: Vida Ortiz : :Referring: JUHI FROST : + + Interpretation Summary The ejection fraction is estimated to be 60-65%. The left atrium is severely dilated. The right atrium is mild to moderately dilated. There is moderate mitral regurgitation. There is mild to moderate tricuspid regurgitation. Procedure: A two-dimensional transthoracic echocardiogram with color flow and Doppler was performed. The study quality was technically adequate. Comparison is made with the echocardiogram of 10/01/2017. The patient was in atrial fibrillation with heart rates between 45-62 bpm during the exam. Left Ventricle: The left ventricle is normal in size. The ejection fraction is estimated to be 60-65%. Left ventricular wall motion is normal. Diastolic function could not be accurately assessed due to atrial fibrillation. Right Ventricle: The right ventricle is normal in size and function. Atria: The left atrium is severely dilated. The right atrium is mild to moderately dilated. There is no Doppler evidence for an interatrial shunt. Mitral Valve: The mitral valve is normal. There is no mitral valve stenosis. There is moderate mitral regurgitation. Aortic Valve: The aortic valve is trileaflet. The aortic valve opens well. There is no aortic valve stenosis. No aortic regurgitation is present. Tricuspid Valve: The tricuspid valve is normal. There is no tricuspid stenosis. There is mild to moderate tricuspid regurgitation. Pulmonic Valve: The pulmonic valve leaflets are thin and pliable; valve motion is normal. There is no pulmonic valvular stenosis. There is trace pulmonic regurgitation. Great Vessels: The aortic root is normal size. The ascending aorta is mildly enlarged. The pulmonary artery is normal size. The IVC is of normal diameter and collapses less than 50% with a sniff. This suggests a right atrial pressure of 8 mm Hg. Pericardium/ Pleura There is a trivial to small pericardial effusion noted. There is no pleural effusion. MMode/2D Measurements & Calculations LVIDd: 4.2 cm LVOT diam: 1.8 cm LVIDs: 2.7 cm Ao root diam: 3.0 cm FS: 35.7 % asc Aorta Diam: 4.2 cm IVSd: 1.1 cm LVPWd: 1.1 cm LV jaffe. diameter/BSA (cm/m^2): 2.3 LV sys. diameter/BSA (cm/m^2): 1.5 LA A2 area: 28.8 cm2 RA long axis: 6.4 cm LA A4 area: 21.5 cm2 RA area: 20.9 cm2 LA length (vol): 6.7 cm RA vol: 58.4 ml LA vol: 78.6 ml RA : 32.1 ml/m2 LA vol index: 43.2 ml/m2 RVD1 (basal): 3.5 cm LVLs ap4: 4.7 cm LVLd ap2: 6.0 cm LVLs ap2: 5.3 cm Doppler Measurements & Calculations Ao V2 max: 183.0 cm/sec LVOT Max Asaf: 100.0 cm/sec Ao V2 mean: 120.5 cm/sec LV V1 max P.0 mmHg Ao max P.0 mmHg LV V1 VTI: 21.5 cm Ao mean P.0 mmHg DINA(I,D): 1.4 cm2 Ao V2 VTI: 40.1 cm DINA(V,D): 1.4 cm2 sev ratio: 0.53 DINA indexed to BSA (cm^2/m^2): 0.75 TR max asaf: 251.8 cm/sec SV(LVOT): 54.6 ml TR max P.6 mmHg PA V2 max: 107.0 cm/sec PA V2 mean: 70.0 cm/sec PA mean P.0 mmHg PA pr(Accel): 39.8 mmHg AV VR_phl: 0.55 DINA(VTI)/BSA_phl: 0.75 Reading Physician:02:52 PM
== END ==
PROVIDERS: Family Provider Internal Medicine; PCP Student in an Organized Health Care Education/Training Program; Referring Provider Student in an Organized Health Care Education/Training Program; Visit Provider Student in an Organized Health Care Education/Training Program
DX: I77.89 Other specified disorders of arteries and arterioles (principal); I08.1 Rheumatic disorders of both mitral and tricuspid valves
CPT/HCPCS: 93306

== ENCOUNTER → 2025-04-02 12:01 | Outpatient (CLI) | payer OTHER, SELFPAY ==
[2021-05-13 09:05] VITALS: BMI 36.6
--- NOTE | 2025-04-02 12:06 | DI.US.S_ITS ---
MM diagnostic mammo BI, US breast RT limited: 04/02/2025 BI-RADS: 2 CLINICAL: 84-year old female for bilateral diagnostic mammogram and right diagnostic breast ultrasound. Tyrer-Cuzick lifetime risk of 0.7%. No personal or first- degree family history of breast cancer. The patient reports a superficial palpable abnormality (1 month) in the left breast. PRIOR EXAMS 02/12/2022, 06/13/2018, 09/24/2016, 08/28/2015. MAMMOGRAPHY TECHNIQUE: 2D and 3D (tomosynthesis) digital mammographic views obtained, with additional images as needed for full coverage. Current study was also evaluated with a Computer Aided Detection (CAD) system. ULTRASOUND TECHNIQUE TARGETED Right Breast Ultrasound: Real-time ultrasound exam was performed focused to area of clinical and/or imaging concern. Real-time clemens scale and color doppler imaging of the area of clinical interest was performed with image documentation. DENSITY B. There are scattered areas of fibroglandular density. MAMMOGRAPHY FINDINGS Right (finding-1): Lower Inner Quadrant, Anterior depth: A skin marker was placed in the area of concern, and no mammographic abnormalities are identified or to account for concern by the patient of a palpable lump. No suspicious mass, asymmetry, microcalcification, or other abnormality seen. Left: No suspicious mass, asymmetry, microcalcification, or other abnormality seen. ULTRASOUND FINDINGS Right (finding-1): Lower Inner at 4:00, 2 cm from nipple, measuring 0.4 x 0.3 x 0.3 cm: There is a skin lesion present. Doppler shows no vascularity. This could represent a ruptured sebaceous cyst in the correct clinical context. IMPRESSION: Right * No evidence of malignancy with benign findings. Left * No evidence of malignancy. RECOMMENDATIONS Right * Clinical follow-up is recommended, and further management of palpable abnormalities or other focal signs or symptoms should be based on the results of clinical evaluation. If palpable abnormality or other concerning symptom persists or progresses, further clinical evaluation should be considered. Bilateral * Annual screening mammography. COMMENTS: Findings and recommendations were conveyed to the patient during today's evaluation. OVERALL ASSESSMENT CATEGORY BI-RADS-2: Benign. The [employer] recommends annual screening mammography beginning at age 40 for women with average risk of breast cancer. ELECTRONICALLY SIGNED: Alyssa Marte M.D. on 04/02/2025 at 03:47:50 PM PT Interpreting Station ID: [id number]
== END ==
PROVIDERS: Family Provider Internal Medicine; PCP Physician Assistant; Referring Provider Physician Assistant; Visit Provider Physician Assistant
DX: R92.8 Other abnormal and inconclusive findings on diagnostic imaging of breast (principal); L98.9 Disorder of the skin and subcutaneous tissue, unspecified
CPT/HCPCS: 76642; 77066; G0279